=== PATIENT | male | born 1960 | race Caucasian/White ===

== ENCOUNTER → 2017-04-29 | Outpatient (CLI) | payer BC ==
[2014-11-16 09:32] VITALS: BP 125/70
[~2017-04-29] MED LIST: ALPR0.25 PO; ALPR0.5T PO; ALPR3TAB PO; BUPR150T8 PO; CRESTOR40 MG PO; CYAN10005 PO; DILT240C2 PO; ESOM40CA PO; METO25TA4 PO; MULT1TAB87 PO; RIVA20TA2 PO; TERA5CAP3 PO
--- NOTE | 2017-04-29 12:34 | CARD ---
APPROVED REPORT EXAM: Two-dimensional and M-mode echocardiogram with Doppler and color Doppler. Other Information Quality : FairHR: 64bpm Rhythm : NSR INDICATION Cardiomyopathy RISK FACTORS Obesity 2D DIMENSIONS RVDd2.9 (2.9-3.5cm)Left Atrium(2D)3.6 (1.6-4.0cm) IVSd1.0 (0.7-1.1cm)Aortic Root(2D)3.1 (2.0-3.7cm) LVDd5.0 (3.9-5.9cm)LVOT Diameter2.3 (1.8-2.4cm) PWd1.0 (0.7-1.1cm)LVDs3.3 (2.5-4.0cm) FS (%) 33.3 %SV72.3 ml LVEF(%)61.7 (>50%) M-Mode DIMENSIONS LVDd5.40 (4.0-5.6cm)Aortic Cusp Exc2.00 (1.5-2.0cm) FS (%) 25 %LVDs4.04 (2.0-3.8cm) LVEF(%)49 (>50%) Aortic Valve AoV Peak Etienne.124.7cm/sAoV VTI22.5cm AO Peak GR.6.2mmHgLVOT Peak Etienne.113.8cm/s LVOT VTI 19.40cmAO Mean GR.4mmHg TALISHA (VMAX)2.99ll8YFY (VTI)3.55cm2 Mitral Valve MV E Jzfuyksa12.9cm/sMV DECEL [id number] MV A Daadzplt04.8cm/sMV E Mean Gr.1mmHg MV CJV68ttL/A Ratio0.9 MV A Jjliyvzf61eoOFO (PHT)4.32cm2 TDI E/Lateral E'6.4E/Medial E'6.1 Pulmonary Valve PV Peak Pmxoiyqo847.8cm/sPV Peak Grad.6mmHg Pulmonary Vein S1 Gykyylbv29.4cm/sD2 Kteijmpv50.8cm/s PVa shkqzfxw82iwkj LEFT VENTRICLE The left ventricle is normal size. There is normal left ventricular wall thickness. Left ventricle sy stolic function is moderately impaired. The Ejection Fraction is 30-35%. Abnormal septal motion is no alba suggestive of conduction defect. There is moderate global hypokinesis of the left ventricle, pred ominantly in the mid to distal segments. Transmitral Doppler flow pattern is Grade I-abnormal relaxat ion pattern. No left ventricle thrombus noted on this study. RIGHT VENTRICLE The right ventricle is normal size. There is normal right ventricular wall thickness. The right ventr icular systolic function is normal. ATRIA The left atrium size is normal. The right atrium size is normal. The interatrial septum is intact wit h no evidence for an atrial septal defect or patent foramen ovale as noted on 2-D or Doppler imaging. AORTIC VALVE The aortic valve is mildly thickened. The aortic valve is trileaflet. Doppler and Color Flow revealed no significant aortic regurgitation. There is no significant aortic valvular stenosis. MITRAL VALVE The mitral valve leaflets are thickened. There is no evidence of mitral valve prolapse. There is no m itral valve stenosis. Doppler and Color Flow revealed no mitral valve regurgitation noted. TRICUSPID VALVE Doppler and Color Flow revealed no tricuspid valve regurgitation noted. There is no pulmonary hyperte nsion. PULMONIC VALVE Doppler and Color Flow revealed no pulmonic valvular regurgitation. There is no pulmonic valvular evelia nosis. GREAT VESSELS The aortic root is normal in size. The ascending aorta is mildly dilated at 3.8 cm The IVC is normal in size and collapses >50% with inspiration. PERICARDIAL EFFUSION There is no evidence of significant pericardial effusion. Critical Notification Critical Value: No <Conclusion> Left ventricle systolic function is moderately impaired. The Ejection Fraction is 30-35%. Abnormal septal motion is noted suggestive of conduction defect. There is moderate global hypokinesi s of the left ventricle, predominantly in the mid to distal segments. The ascending aorta is mildly dilated at 3.8 cm
== END | disposition home or self-care (01) ==
LOC: ECHO 07:42
PROVIDERS: ATTEND Internal Medicine Cardiovascular Disease
DX: I48.0 Paroxysmal atrial fibrillation (principal)
CPT/HCPCS: 93306

== ENCOUNTER 2017-05-10 06:39 | Outpatient (CLI) | payer BC ==
[~2017-05-10] VITALS: Ht 185.4 cm; Wt 142.9 kg
[2017-05-10] VITALS (9 sets, daily range): BP systolic 106–127; BP diastolic 67–78
[2017-05-10 07:02] LABS: HEMATOCRIT 44.3 % (39.0-53.0); RED BLOOD COUNT 4.54 x10^6/uL (4.30-5.70); WHITE BLOOD COUNT 5.9 x10^3/uL (4.0-11.0)
[2017-05-10 07:11] LABS: INR 1.1 (0.8-1.1); PROTHROMBIN TIME PATIENT 13.4 SEC (11.7-14.0)
[2017-05-10] MEDS ORDERED: TAMS0.4C2 PO (07:13)
[2017-05-10] MEDS ORDERED: DILT240C2 PO (07:13)
[2017-05-10] MEDS ORDERED: AMIO200T2 PO (07:13)
[2017-05-10 07:22] LABS: CALCIUM 9.8 mg/dL (8.5-10.1); CREATININE 1.1 mg/dL (0.7-1.3); GFR 68.8; POTASSIUM 4.3 mmol/L (3.5-5.1)
[2017-05-10] MEDS ORDERED: IOHEXOL 300 MG/ML 100ML VIAL. ONE (07:31)
[2017-05-10] MEDS ORDERED: LIDOCAINE 2% 20 ML VIAL. ONE (07:32)
[2017-05-10] MEDS ORDERED: NITROGLYCERIN 200 MCG/2 ML SYRINGE FOR CATH/VASC LAB. ONE (07:41)
[2017-05-10] MEDS ORDERED: VERAPAMIL 5 MG/2 ML VIAL. ONE (07:41)
[2017-05-10] MEDS ORDERED: HEPARIN for IV BOLUS 10,000 UNIT/10 ML VIAL. ONE (07:41)
[2017-05-10] MEDS ORDERED: MIDAZOLAM HCL/PF 2 MG/2 ML VIAL. ONE ×2 (07:42→08:11)
[2017-05-10] MEDS ORDERED: fentaNYL PF VIAL 100 MCG/2 ML VIAL ONE (07:42)
[2017-05-10] MEDS ORDERED: fentaNYL PF VIAL 100 MCG/2 ML VIAL IV ONE (08:00)
[2017-05-10] MEDS ORDERED: VERAPAMIL 5 MG/2 ML VIAL. IART ONE (08:00)
[2017-05-10] MEDS ORDERED: NITROGLYCERIN 200 MCG/2 ML SYRINGE FOR CATH/VASC LAB. IART ONE (08:00)
[2017-05-10] MEDS ORDERED: HEPARIN for IV BOLUS 10,000 UNIT/10 ML VIAL. IART ONE (08:00)
[2017-05-10] MEDS ORDERED: IOHEXOL 300 MG/ML 100ML VIAL. IART ONE (08:00)
[2017-05-10] MEDS ORDERED: MIDAZOLAM HCL/PF 2 MG/2 ML VIAL. IV ONE (08:00)
[2017-05-10] MEDS ORDERED: LIDOCAINE 2% 20 ML VIAL. IJ ONE (08:00)
--- NOTE | 2017-05-10 08:58 | CARD ---
APPROVED REPORT Procedure(s) performed: Left heart catheterization, selective coronary angiography and left ventricul ography via right transradial approach INDICATION The indication(s) include : Cardiomyopathy. PROCEDURE NARRATIVE After explaining the risks, benefits and alternative options, informed consent was obtained from lisbeth ent. Patient was brought to the cardiac Hospitalist Program Director and right wrist was prepped and draped in the usual fashion after confirming a positive modified Parth's test. Arterial access was obtained in the [facility] t radial artery and a [address] [place] sheath was inserted. [address] [place] Ralph catheter was used to perform brina ective angiography of the left and right coronary arteries. 6 [place] pigtail catheter was used to pe rform left ventriculography. Patient tolerated the procedure well. Hemostasis was achieved using TR band. There were no immediate complications. The following findings were noted. FINDINGS 1. Hemodynamics: Left ventricular end-diastolic pressure of 9 mmHg. No pullback gradient across the aortic valve. 2. Left ventriculography: Normal left ventricle systolic function with ejection fraction estimated at 50-55%. No significant mitral regurgitation seen. 3. Coronary angiography: a. The left main coronary artery arose from the left sinus of Valsalva, gave rise to the left anteri or descending and left circumflex arteries and did not show any significant stenosis. b. The left anterior descending artery did not show any significant stenosis. c. The left circumflex artery did not show any significant stenosis. d. The right coronary artery was a large and dominant vessel arising from the right sinus of Valsalv a that did not show any significant stenosis. Conclusion 1. No significant coronary artery disease 2. Normal left ventricle systolic function with ejection fraction estimated at 50-55% Recommendations Medical Therapy
[2017-05-10] MEDS ORDERED: IV 1/2 NORMAL SALINE 1,000 ML IV SCH (09:10)
--- NOTE | 2017-05-10 09:10 | PDOC ---
MODERATE SEDATION ASSESSMENT RISKS/ALTERNATIVES Risks/Alternatives Risks and alternatives of this type of sedation and procedure discussed with: RISK/ALTERNATIVES: Patient H & P ON CHART H & P H & P on chart and reviewed for co-morbid conditions and appropriate labs. H&P ON CHART: Yes STATUS PREG STATUS ASSESSED: N/A MEDS/ALLERGIES REVIEWED Meds/Allergies Reviewed Medications and Allergies including time and route of recently administered narcotics and sedatives. MEDS/ALLERGIES REVIEWED: Yes ASA RATING ASA RATING: II AIRWAY ASSESSMENT Airway Assessment Airway patency, oral function limitations, presence of caps, crowns, dentures, partials, and ability to extend neck assessed. AIRWAY ASSESSMENT: Yes MALLAMPATI SCORE MALLAMPATI SCORE: II PRE-SEDATION ASSESSMENT PRE-SEDATION ASSESSMENT: Yes TRACEE MORIN MD May 10, 2017 09:10
== END 2017-05-10 10:53 | disposition home or self-care (01) ==
LOC: CCL 06:39
PROVIDERS: ATTEND Internal Medicine Cardiovascular Disease
DX: I11.0 Hypertensive heart disease with heart failure (principal); I50.20 Unspecified systolic (congestive) heart failure; I48.91 Unspecified atrial fibrillation; E78.00 Pure hypercholesterolemia, unspecified; F17.200 Nicotine dependence, unspecified, uncomplicated; E66.9 Obesity, unspecified; F41.9 Anxiety disorder, unspecified; F32.9 Major depressive disorder, single episode, unspecified; Z90.49 Acquired absence of other specified parts of digestive tract; Z72.89 Other problems related to lifestyle
CPT/HCPCS: 36415; 80048; 85027; 85610; 93458; C1769; C1892; J2250; J3010; J3490; Q9967

== ENCOUNTER → 2017-12-10 | Outpatient (CLI) | payer BC ==
[2017-12-10] MEDS: IOHEXOL 240 MG/ML 50ML VIAL. PO (09:11)
[2017-12-10] MEDS: IOHEXOL 300 MG/ML 100ML VIAL. IV (09:46)
== END | disposition home or self-care (01) ==
LOC: KCIC CT 08:42
DX: R10.33 Periumbilical pain (principal); M48.061 Spinal stenosis, lumbar region without neurogenic claudication
CPT/HCPCS: 74177; Q9966; Q9967

== ENCOUNTER 2018-04-04 04:49 | Emergency (ER) | payer BC ==
[2018-04-04 05:28] LABS: ADD MAN DIFF? NO
[2018-04-04 05:32] LABS: BASO % 1 % (0-3); EOS # 0.1 x10^3/uL (0.0-0.7); EOS % 3 % (0-3); HEMATOCRIT 40.6 % (39.0-53.0); LYMPH # 1.2 x10^3/uL (1.0-4.8); LYMPH % 25 % (24-48); MEAN CORPUSCULAR HEMOGLOBIN 33 pg (25-35); MEAN CORPUSCULAR HGB CONC 35 g/dL (31-37); MEAN CORPUSCULAR VOLUME 95 fL (79-100); MONO # 0.7 x10^3/uL (0.0-1.1); MONO % 14 % (0-9); NEUT # 2.6 x10^3uL (1.8-7.7); NEUT % 57 % (31-73); PLATELET COUNT 209 x10^3/uL (140-400); RED BLOOD COUNT 4.29 x10^6/uL (4.30-5.70); WHITE BLOOD COUNT 4.6 x10^3/uL (4.0-11.0)
[2018-04-04] MEDS: fentaNYL PF VIAL 100 MCG/2 ML VIAL IV (05:38)
[2018-04-04 05:40] LABS: PROTHROMBIN TIME PATIENT 21.6 SEC (11.7-14.0)
[2018-04-04 05:41] LABS: ANION GAP 10 (6-14); BLOOD UREA NITROGEN 18 mg/dL (8-26); BUN/CREATININE RATIO 18 (6-20); CALCIUM 9.5 mg/dL (8.5-10.1); CARBON DIOXIDE 25 mmol/L (21-32); CHLORIDE 107 mmol/L (98-107); GFR 76.5; GLUCOSE 117 mg/dL (70-99); POTASSIUM 3.9 mmol/L (3.5-5.1); SODIUM 142 mmol/L (136-145)
[2018-04-04 05:52] LABS: NT-PRO BNP 343 pg/mL (0-124); TROPONINI < 0.017 ng/mL (0.000-0.055)
[2018-04-04 05:52] LABS: ALBUMIN 3.5 g/dL (3.4-5.0); ALBUMIN/GLOBULIN RATIO 1.1 (1.0-1.7); ALK PHOS 79 U/L (46-116); ALT (SGPT) 164 U/L (16-63); AST (SGOT) 76 U/L (15-37); TOTAL BILIRUBIN 0.5 mg/dL (0.2-1.0); TOTAL PROTEIN 6.8 g/dL (6.4-8.2)
[2018-04-04 06:27] LABS: D-DIMER < 0.27 ug/mlFEU (0.00-0.50)
== END 2018-04-04 07:39 | disposition home or self-care (01) ==
LOC: ER 04:49
DX: R07.89 Other chest pain (principal); M79.605 Pain in left leg; K21.9 Gastro-esophageal reflux disease without esophagitis; I48.91 Unspecified atrial fibrillation; I10 Essential (primary) hypertension; Z87.891 Personal history of nicotine dependence; Z90.49 Acquired absence of other specified parts of digestive tract; Z79.899 Other long term (current) drug therapy
CPT/HCPCS: 36415; 71045; 80053; 83880; 84484; 85025; 85379; 85610; 93005; 93971; 96374; 99285; J3010

== ENCOUNTER → 2018-06-09 | Outpatient (CLI) | payer BC | END | disposition home or self-care (01) | LOC: RAD 15:52 | DX: R06.02 Shortness of breath (principal); I11.0 Hypertensive heart disease with heart failure; I50.9 Heart failure, unspecified; E78.00 Pure hypercholesterolemia, unspecified; E78.5 Hyperlipidemia, unspecified; K21.9 Gastro-esophageal reflux disease without esophagitis | CPT/HCPCS: 71046 ==

== ENCOUNTER → 2018-06-27 | Outpatient (CLI) | payer BC ==
[2018-06-27 16:09] LABS: ANION GAP 11 (6-14); BLOOD UREA NITROGEN 26 mg/dL (8-26); CALCIUM 9.3 mg/dL (8.5-10.1); CARBON DIOXIDE 25 mmol/L (21-32); CHLORIDE 103 mmol/L (98-107); CREATININE 1.4 mg/dL (0.7-1.3); GFR 51.9; GLUCOSE 87 mg/dL (70-99); SODIUM 139 mmol/L (136-145)
== END | disposition home or self-care (01) ==
LOC: LAB 15:28
DX: I11.0 Hypertensive heart disease with heart failure (principal); I50.22 Chronic systolic (congestive) heart failure; E78.5 Hyperlipidemia, unspecified; E78.00 Pure hypercholesterolemia, unspecified; F32.9 Major depressive disorder, single episode, unspecified; K21.9 Gastro-esophageal reflux disease without esophagitis; Z87.891 Personal history of nicotine dependence; Z90.49 Acquired absence of other specified parts of digestive tract
CPT/HCPCS: 36415; 80048

== ENCOUNTER → 2018-07-07 | Outpatient (CLI) | payer BC ==
[2018-04-04 07:39] VITALS: BP 128/76
[~2018-07-07] MED LIST changes: +AMIO200T4 PO; +TAMS0.4C2 PO
--- NOTE | 2018-07-07 16:54 | CARD ---
MR#: [id number] Date of Study: 07/07/2018 Ordering Physician: TRACEE MORIN, Referring Physician: TRACEE MORIN Tech: Leslye Coker RDCS APPROVED REPORT EXAM: Two-dimensional and M-mode echocardiogram with Doppler and color Doppler. Other Information Quality : Good INDICATION Congestive Heart Failure 2D DIMENSIONS RVDd3.0 (2.9-3.5cm)Left Atrium(2D)3.8 (1.6-4.0cm) IVSd1.1 (0.7-1.1cm)Aortic Root(2D)3.5 (2.0-3.7cm) LVDd6.0 (3.9-5.9cm)LVOT Diameter2.4 (1.8-2.4cm) PWd1.4 (0.7-1.1cm)LVDs3.8 (2.5-4.0cm) FS (%) 27.0 %SV119.0 ml LVEF(%)55.0 (>50%) Aortic Valve AoV Peak Etienne.143.2cm/sAoV VTI26.2cm AO Peak GR.8.2mmHgLVOT Peak Etienne.84.1cm/s AO Mean GR.5mmHgAVA (VMAX)2.69cm2 TALISHA (VTI)3.10cm2 Mitral Valve MV E Kmtepheb92.8cm/sMV DECEL KNOW761yg MV A Uiosuxjg29.5cm/sE/A Ratio1.2 Pulmonary Vein S1 Heyvhlnf48.1cm/sD2 Zlrdochd56.9cm/s LEFT VENTRICLE The Left Ventricle is mildly dilated. There is mild concentric left ventricular hypertrophy. Left todd tricle systolic function is normal. The Ejection Fraction is 50-55%. There is normal LV segmental wal l motion. RIGHT VENTRICLE The right ventricle is normal size. The right ventricular systolic function is normal. ATRIA The left atrium is mildly dilated. The right atrium size is normal. The interatrial septum is intact with no evidence for an atrial septal defect or patent foramen ovale as noted on 2-D or Doppler imagi ng. AORTIC VALVE The aortic valve is calcified but opens well. Doppler and Color Flow revealed no significant aortic r egurgitation. There is no significant aortic valvular stenosis. MITRAL VALVE The mitral valve is normal in structure and function. There is no evidence of mitral valve prolapse. There is no mitral valve stenosis. Doppler and Color-flow revealed trace mitral regurgitation. TRICUSPID VALVE The tricuspid valve is normal in structure and function. Doppler and Color Flow revealed no tricuspid valve regurgitation noted. There is no tricuspid valve stenosis. PULMONIC VALVE The pulmonic valve is not well visualized. Doppler and Color Flow revealed no pulmonic valvular regur gitation. There is no pulmonic valvular stenosis. GREAT VESSELS The aortic root is normal in size. The ascending aorta is normal in size. The IVC is normal in size a nd collapses >50% with inspiration. PERICARDIAL EFFUSION There is no evidence of significant pericardial effusion. Critical Notification Critical Value: No <Conclusion> Left ventricle systolic function is normal. The Ejection Fraction is 50-55%. There is normal LV segmental wall motion. Trace mitral regurgitation. There is no evidence of significant pericardial effusion. Signed by : Tracee Morin, Electronically Approved : 07/07/2018 16:53:23
== END | disposition home or self-care (01) ==
LOC: ECHO 13:32
PROVIDERS: ATTEND Internal Medicine Cardiovascular Disease
DX: I11.0 Hypertensive heart disease with heart failure (principal); I50.22 Chronic systolic (congestive) heart failure; K21.9 Gastro-esophageal reflux disease without esophagitis; E78.5 Hyperlipidemia, unspecified; E78.00 Pure hypercholesterolemia, unspecified; Z90.49 Acquired absence of other specified parts of digestive tract; Z87.891 Personal history of nicotine dependence
CPT/HCPCS: 93306

== ENCOUNTER 2019-03-07 14:36 | Inpatient (IN) | payer BC ==
[~2019-03-07] VITALS: Ht 185.4 cm; Wt 128.9 kg
[2019-03-07] MEDS ORDERED: IPRATRPIUM/ALBUTEROL 0.5/2.5MG 3 ML NEBU. NEB ONE (15:00)
[2019-03-07] MEDS ORDERED: methylPREDNISolone SOD SUCC PF 125 MG/2 ML VIAL. IV ONE (15:00)
--- NOTE | 2019-03-07 15:12 | EKG ---
[facility] [address] [place] [address] Test Date: 2019-03-07 Test Time: 14:47:46 Pat Name: DANIEL CROSS Department: Room: Gender: M Loftsman/Woman: : 1960 Requested By: LÓPEZ GARNER Order Number: [id number] Reading MD: Wei Nava MD Measurements Intervals [place] Rate: 99 P: MD: QRS: 113 QRSD: 100 T: 45 QT: 382 QTc: 496 Interpretive Statements ATRIAL FIBRILLATION WITH CONTROLLED VENTRICULAR RESPONSE PROLONGED QT NON-SPECIFIC ST/T CHANGES CONSIDER LATERAL ISCHEMIA Electronically Signed On 03-15-2019 9:05:43 CDT by Wei Nava MD
[2019-03-07 15:32] LABS: BASO # 0.1 x10^3/uL (0.0-0.2); BASO % 1 % (0-3); EOS % 0 % (0-3); HEMATOCRIT 46.9 % (39.0-53.0); HEMOGLOBIN 15.8 g/dL (13.0-17.5); LYMPH # 2.1 x10^3/uL (1.0-4.8); LYMPH % 22 % (24-48); MEAN CORPUSCULAR HEMOGLOBIN 33 pg (25-35); MEAN CORPUSCULAR HGB CONC 34 g/dL (31-37); MEAN CORPUSCULAR VOLUME 97 fL (79-100); MONO # 0.8 x10^3/uL (0.0-1.1); MONO % 9 % (0-9); NEUT # 6.5 x10^3uL (1.8-7.7); NEUT % 68 % (31-73); PLATELET COUNT 274 x10^3/uL (140-400); RED BLOOD COUNT 4.83 x10^6/uL (4.30-5.70); RED CELL DISTRIBUTION WIDTH 12.6 % (11.5-14.5); WHITE BLOOD COUNT 9.5 x10^3/uL (4.0-11.0)
--- NOTE | 2019-03-07 15:38 | RAD ---
EXAM: CHEST 1 VIEW History: Shortness of breath COMPARISON: 06/09/2018 TECHNIQUE: Single portable radiograph of the chest FINDINGS: The cardiac silhouette is unremarkable. Mild hyperinflated lungs. Atelectasis or scarring changes identified in the left lung similar to prior exam. IMPRESSION: No radiographic evidence of an acute cardiopulmonary process. Electronically signed by: Frederick Zhou MD (03/07/2019 3:35 PM) [facility]
--- NOTE | 2019-03-07 15:51 | PHYS DOC ---
Past Medical History Past Medical History: A-Fib, Anxiety, COPD, GERD, Hypertension Additional Past Medical Histor: ENLARGED PROSTATE, ANEURYSM Past Surgical History: Appendectomy, Cholecystectomy, Other Additional Past Surgical Histo: hernia surgery, heart cath-clean Alcohol Use: None Drug Use: None Adult General Chief Complaint Chief Complaint: SHORTNESS OF BREATH HPI HPI Patient is a 59 year old male who presents with complaining of shortness of breath. Patient complaining of shortness of breath intermittently for the last 5 days that getting more constant today. Patient complaining of productive cough with yellow sputum and exertional dizziness and generalized weakness. Patient complaining of episodes of chest pain is substernal and left side of his chest as a sharp pain and rated his pain 9/10. Patient was seen at urgent care 5 days ago and had Medrol Dosepak and antibiotics without improvement of his condition. Patient has history of COPD without home oxygen and atrial fibrillation and currently on Xarelto without history of PE and DVT. Review of Systems Review of Systems Constitutional: Denies fever or chills [] Eyes: Denies change in visual acuity, redness, or eye pain [] HENT: Denies nasal congestion or sore throat [] Respiratory: Reports cough and shortness of breath[] Cardiovascular: No additional information not addressed in HPI [] GI: Denies abdominal pain, nausea, vomiting, bloody stools or diarrhea [] : Denies dysuria or hematuria [] Musculoskeletal: Denies back pain or joint pain [] Integument: Denies rash or skin lesions [] Neurologic: Denies headache, focal weakness or sensory changes [] Endocrine: Denies polyuria or polydipsia [] All other systems were reviewed and found to be within normal limits, except as documented in this note. Current Medications Current Medications Current Medications Medications (Trade) Dose Ordered Sig/Padmini Start Time Stop Time Status Last Admin Dose Admin Albuterol/ Ipratropium (Duoneb) 3 ml 1X ONCE 03/07/19 15:00 03/07/19 15:05 DC 03/07/19 15:13 3 ML Ceftriaxone Sodium (Rocephin) 1 gm 1X ONCE 03/07/19 16:45 03/07/19 16:46 DC Fentanyl Citrate (Fentanyl 2ml Vial) 50 mcg 1X ONCE 03/07/19 16:15 03/07/19 16:16 DC 03/07/19 16:08 50 MCG Methylprednisolone Sodium Succinate (SOLU-Medrol 125MG VIAL) 125 mg 1X ONCE 03/07/19 15:00 03/07/19 15:05 DC 03/07/19 15:27 125 MG Allergies Allergies Allergies Coded Allergies Type Severity Reaction Last Updated Verified No Known Drug Allergies 11/16/14 No Physical Exam Physical Exam Constitutional: Well developed, well nourished, moderate distress, non-toxic appearance. [] HENT: Normocephalic, atraumatic, bilateral external ears normal, oropharynx moist, no oral exudates, nose normal. [] Eyes: PERRLA, EOMI, conjunctiva normal, no discharge. [] Neck: Normal range of motion, no tenderness, supple, no stridor. [] Cardiovascular: Irregularly irregular rhythm, no murmur [] Lungs & Thorax: Decrease of air movement and bilateral rhonchi Abdomen: Bowel sounds normal, soft, no tenderness, no masses, no pulsatile masses. [] Skin: Warm, dry, no erythema, no rash. [] Back: No tenderness, no CVA tenderness. [] Extremities: No tenderness, no cyanosis, no clubbing, ROM intact, lateral lower extremity 1+ edema[] Neurologic: Alert and oriented X 3, normal motor function, normal sensory function, no focal deficits noted. [] Psychologic: Affect anxious judgement normal, mood normal. [] Current Patient Data Vital Signs Vital Signs Date Time Temp Pulse Resp B/P (MAP) Pulse Ox O2 Delivery O2 Flow Rate FiO2 03/07/19 16:08 15 03/07/19 15:18 98 Room Air 03/07/19 14:42 97.3 97 107/86 (93) 97.3 Lab Values Laboratory Tests Test 03/07/19 15:20 White Blood Count 9.5 x10^3/uL (4.0-11.0) Red Blood Count 4.83 x10^6/uL (4.30-5.70) Hemoglobin 15.8 g/dL (13.0-17.5) Hematocrit 46.9 % (39.0-53.0) Mean Corpuscular Volume 97 fL (79-100) Mean Corpuscular Hemoglobin 33 pg (25-35) Mean Corpuscular Hemoglobin Concent 34 g/dL (31-37) Red Cell Distribution Width 12.6 % (11.5-14.5) Platelet Count 274 x10^3/uL (140-400) Neutrophils (%) (Auto) 68 % (31-73) Lymphocytes (%) (Auto) 22 % (24-48) L Monocytes (%) (Auto) 9 % (0-9) Eosinophils (%) (Auto) 0 % (0-3) Basophils (%) (Auto) 1 % (0-3) Neutrophils # (Auto) 6.5 x10^3uL (1.8-7.7) Lymphocytes # (Auto) 2.1 x10^3/uL (1.0-4.8) Monocytes # (Auto) 0.8 x10^3/uL (0.0-1.1) Eosinophils # (Auto) 0.0 x10^3/uL (0.0-0.7) Basophils # (Auto) 0.1 x10^3/uL (0.0-0.2) D-Dimer (Chata) < 0.27 ug/mlFEU Sodium Level 141 mmol/L (136-145) Potassium Level 4.2 mmol/L (3.5-5.1) Chloride Level 102 mmol/L (98-107) Carbon Dioxide Level 23 mmol/L (21-32) Anion Gap 16 (6-14) H Blood Urea Nitrogen 27 mg/dL (8-26) H Creatinine 1.4 mg/dL (0.7-1.3) H Estimated GFR (Cockcroft-Gault) 51.7 BUN/Creatinine Ratio 19 (6-20) Glucose Level 133 mg/dL (70-99) H Lactic Acid Level 2.1 mmol/L (0.4-2.0) H Calcium Level 9.4 mg/dL (8.5-10.1) Total Bilirubin 0.8 mg/dL (0.2-1.0) Aspartate Amino Transferase (AST) 66 U/L (15-37) H Alanine Aminotransferase (ALT) 140 U/L (16-63) H Alkaline Phosphatase 100 U/L (46-116) Creatine Kinase 95 U/L (39-308) Troponin I Quantitative < 0.017 ng/mL (0.000-0.055) KR-Bht-E-Type Natriuretic Peptide 1106 pg/mL (0-124) H Total Protein 7.9 g/dL (6.4-8.2) Albumin 4.0 g/dL (3.4-5.0) Albumin/Globulin Ratio 1.0 (1.0-1.7) Laboratory Tests 03/07/19 15:20 Laboratory Tests 03/07/19 15:20 EKG EKG EKG interpreted by me. EKG at 1447 showed atrial flutter ablation at rate of 99 , abnormal right axis deviation, prolonged QT, no acute ST and T-wave abnormalities. Radiology/Procedures Radiology/Procedures [][facility] [address] [place] [address] IMAGING REPORT Signed PATIENT: DANIEL CROSS ACCOUNT: [id number] : 1960 LOCATION: ER AGE: 59 SEX: M EXAM STATUS: REG ER ORD. PHYSICIAN: LÓPEZ GARNER MD REASON: SOB PROCEDURE: PORTABLE CHEST 1V EXAM: CHEST 1 VIEW History: Shortness of breath COMPARISON: 06/09/2018 TECHNIQUE: Single portable radiograph of the chest FINDINGS: The cardiac silhouette is unremarkable. Mild hyperinflated lungs. Atelectasis or scarring changes identified in the left lung similar to prior exam. IMPRESSION: No radiographic evidence of an acute cardiopulmonary process. Electronically signed by: Frederick Zhou MD (03/07/2019 3:35 PM) [facility] DICTATED and SIGNED BY: FREDERICK ZHOU MD DATE: 03/07/19 1535 Course & Med Decision Making Course & Med Decision Making Pertinent Labs and Imaging studies reviewed. (See chart for details) Evaluation of patient in ER showed 59-year-old male patient with history of COPD and atrial fibrillation complaining of shortness of breath and productive cough for several days that did not get better with outpatient treatment with antibiotic and prednisone. Patient treated with DuoNeb, Solu-Medrol, fentanyl and felt better. Chest x-ray did not show infiltration. Plan to admit patient with diagnosis of COPD exacerbation. Patient requiring admission for further evaluation and treatment. Discussed with Dr. Cash who is in agreement with admission. Discussed findings and plan with patient and family, who acknowledge understanding and agreement. Dragon Disclaimer Dragon Disclaimer This electronic medical record was generated, in whole or in part, using a voice recognition dictation system. Departure Departure Impression: Primary Impression: COPD exacerbation Additional Impressions: Afib Non-cardiac chest pain Anxiety Disposition: ADMITTED INPATIENT (at 1704) Admitting Physician: Laurie Cash (accepted admission at 1704) Condition: IMPROVED Referrals: FRIEDA MCLAIN MD (PCP) Problem Qualifiers Additional Impressions: Afib Atrial fibrillation type: chronic Qualified Codes: I48.2 - Chronic atrial fibrillation LÓPEZ GARNER MD Mar 07, 2019 15:51
[2019-03-07 16:00] LABS: CALCIUM 9.4 mg/dL (8.5-10.1); CREATININE 1.4 mg/dL (0.7-1.3); GFR 51.7; POTASSIUM 4.2 mmol/L (3.5-5.1)
[2019-03-07 16:07] LABS: TOTAL BILIRUBIN 0.8 mg/dL (0.2-1.0); TOTAL PROTEIN 7.9 g/dL (6.4-8.2)
[2019-03-07] MEDS ORDERED: fentaNYL PF VIAL 100 MCG/2 ML VIAL IV ONE (16:15)
[2019-03-07] MEDS ORDERED: cefTRIAXone IV Push 1 GM VIAL. IVP ONE (16:45)
[2019-03-07] MEDS ORDERED: ONDANSETRON PF 4 MG/2 ML VIAL. IV PRN (17:15)
[2019-03-07] MEDS ORDERED: TEMAZEPAM 7.5 MG CAPSULE PO PRN (17:15)
[2019-03-07] MEDS ORDERED: ACETAMINOPHEN/CODEINE 300/30MG TABLET. PO PRN (17:15)
[2019-03-07] MEDS ORDERED: ACETAMINOPHEN 500 MG TABLET PO PRN (17:15)
--- NOTE | 2019-03-07 19:32 | PDOC1 ---
History and Physical Date of Admission Date of Admission DATE: 03/07/19 TIME: 19:29 Identification/Chief Complaint Chief Complaint SOA, cough, not better after urgent care antibiotics Source Source: Caregiver, Chart review, Patient History of Present Illness History of Present Illness 59-year-old obese white male BMI 37, SOA, few days, denies recent sick contacts or travel. Went to urgent care , given steroids and unrecalled antibiotic, has 3 more days to take but no better. He claims he got worse. Denies fever. Only on rescue inhalers at home with known COPD. Smoked for 40 years but quit 4 years ago. Chest x-ray and labs unremarkable. Decreased breath sounds but no wheezing appreciable. Hypoxic 80s at urgent care. Admitted for COPD exacerbation/acute bronchitis Chest x-ray no consolidation Past Medical History Cardiovascular: HTN, Hyperlipidemia Pulmonary: COPD GI: GERD, Gastritis, Other Heme/Onc: No pertinent hx Hepatobiliary: Cholelithiasis, Other Psych: Anxiety, Addictions, Depression, Panic Musculoskeletal: low back pain, Osteoarthritis, Stiffness, Other Rheumatologic: No pertinent hx Infectious disease: No pertinent hx, Herpes simplex1 Renal/: No pertinent hx, Benign prostatic enlarg. Endocrine: No pertinent hx, Other Past Surgical History Past Surgical History: Cholecystectomy, Hernia Repair Family History Family History: Cancer, Obesity, Other Social History Smoke: Quit ALCOHOL: none Drugs: None Current Problem List Problem List Problems Medical Problems: (1) Afib Status: Acute (2) Anxiety Status: Acute (3) COPD exacerbation Status: Acute (4) Non-cardiac chest pain Status: Acute Current Medications Current Medications Current Medications Albuterol/ Ipratropium (Duoneb) 3 ml 1X ONCE NEB Last administered on at 15:13; Start 03/07/19 at 15:00; Stop 03/07/19 at 15:05; Status DC Methylprednisolone Sodium Succinate (SOLU-Medrol 125MG VIAL) 125 mg 1X ONCE IV Last administered on 03/07/19at 15:27; Start 03/07/19 at 15:00; Stop 03/07/19 at 15:05; Status DC Fentanyl Citrate (Fentanyl 2ml Vial) 50 mcg 1X ONCE IV Last administered on 03/07/19at 16:08; Start 03/07/19 at 16:15; Stop 03/07/19 at 16:16; Status DC Ceftriaxone Sodium (Rocephin) 1 gm 1X ONCE IVP Last administered on 03/07/19at 17:27; Start 03/07/19 at 16:45; Stop 03/07/19 at 16:46; Status DC Albuterol/ Ipratropium (Duoneb) 3 ml RTQID NEB ; Start 03/07/19 at 20:00 Guaifenesin (Robitussin Dm) 10 ml PRN Q6HRS PRN PO COUGH; Start 03/07/19 at 17: 15 Temazepam (Restoril) 7.5 mg PRN QHS PRN PO INSOMNIA; Start 03/07/19 at 17:15 Acetaminophen (Tylenol) 500 mg PRN Q6HRS PRN PO MILD PAIN / TEMP; Start at 17:15 Acetaminophen/ Codeine Phosphate (Tylenol #3) 1 tab PRN Q6HRS PRN PO MODERATE PAIN; Start 03/07/19 at 17:15 Ondansetron HCl (Zofran) 4 mg PRN Q6HRS PRN IV NAUSEA/VOMITING; Start 03/07/19 at 17:15 Oxycodone/ Acetaminophen (Percocet 5/325) 1 tab PRN Q4HRS PRN PO SEVERE PAIN; Start 03/07/19 at 17:15 Active Scripts Active Reported Tamsulosin Hcl 0.4 Mg Cap.er.24h 1 Cap PO DAILY Cardizem Cd (Diltiazem Hcl) 240 Mg Cap.er.24h 1 Cap PO DAILY Amiodarone Hcl 200 Mg Tablet 1 Tab PO DAILY Vitamin And Minerals (Multivitamins,Ther W-Minerals) 1 Each Tablet 1 Each PO DAILY Vitamin B-12 (Cyanocobalamin (Vitamin B-12)) 1,000 Mcg Tablet 2,500 Mcg PO DAILY Metoprolol Tartrate 25 Mg Tablet 25 Mg PO BID Xarelto (Rivaroxaban) 20 Mg Tablet 20 Mg PO DAILY Xanax (Alprazolam) 0.25 Mg Tablet 0.25 Mg PO BID 2 tabs in the am, 1 tab at night Crestor (Rosuvastatin Calcium) 40 Mg Tablet 40 Mg PO DAILY Nexium Capsule (Esomeprazole Magnesium) 40 Mg Capsule.dr 40 Mg PO Wellbutrin Sr (Bupropion Hcl) 150 Mg Tablet.er 150 Mg PO BID 2 tabs in the am, 1 tab at hs Allergies Allergies: Coded Allergies: No Known Drug Allergies (Unverified , 11/16/14) ROS Review of System as per history of present illness, the rest of ROS 14 point negative Physical Exam General: Alert, Oriented X3, Cooperative, No acute distress HEENT: Atraumatic, PERRLA Lungs: Normal air movement, Other (nO wheezing, decreased breath sounds secondary to increased AP diameter) Heart: S1S2, RRR, no thrills, no rubs, no gallops, no murmurs Cardiovascular: S1, S2 Abdomen: Normal bowel sounds, Soft, No tenderness, No hepatosplenomegaly, No masses Male Genitals Exam: normal genitalia, normal prostate Rectal Exam: not examined PELVIC: Nml ext genitalia Extremities: No clubbing, No cyanosis, No edema, Normal pulses, No tenderness/ swelling Skin: No rashes, No breakdown, No significant lesion Neuro: Normal gait, Normal speech, Strength at 5/5 X4 ext, Normal tone, Sensation intact, Cranial nerves 3-12 NL, Reflexes 2+ Psych/Mental Status: Mental status NL, Mood NL Vitals Vitals Vital Signs Date Time Temp Pulse Resp B/P (MAP) Pulse Ox O2 Delivery O2 Flow Rate FiO2 03/07/19 18:16 68 25 127/74 (91) 96 Room Air 03/07/19 14:42 97.3 97.3 Labs Labs Laboratory Tests Test 03/07/19 15:20 White Blood Count 9.5 x10^3/uL (4.0-11.0) Red Blood Count 4.83 x10^6/uL (4.30-5.70) Hemoglobin 15.8 g/dL (13.0-17.5) Hematocrit 46.9 % (39.0-53.0) Mean Corpuscular Volume 97 fL (79-100) Mean Corpuscular Hemoglobin 33 pg (25-35) Mean Corpuscular Hemoglobin Concent 34 g/dL (31-37) Red Cell Distribution Width 12.6 % (11.5-14.5) Platelet Count 274 x10^3/uL (140-400) Neutrophils (%) (Auto) 68 % (31-73) Lymphocytes (%) (Auto) 22 % (24-48) Monocytes (%) (Auto) 9 % (0-9) Eosinophils (%) (Auto) 0 % (0-3) Basophils (%) (Auto) 1 % (0-3) Neutrophils # (Auto) 6.5 x10^3uL (1.8-7.7) Lymphocytes # (Auto) 2.1 x10^3/uL (1.0-4.8) Monocytes # (Auto) 0.8 x10^3/uL (0.0-1.1) Eosinophils # (Auto) 0.0 x10^3/uL (0.0-0.7) Basophils # (Auto) 0.1 x10^3/uL (0.0-0.2) D-Dimer (Chata) < 0.27 ug/mlFEU Sodium Level 141 mmol/L (136-145) Potassium Level 4.2 mmol/L (3.5-5.1) Chloride Level 102 mmol/L (98-107) Carbon Dioxide Level 23 mmol/L (21-32) Anion Gap 16 (6-14) Blood Urea Nitrogen 27 mg/dL (8-26) Creatinine 1.4 mg/dL (0.7-1.3) Estimated GFR (Cockcroft-Gault) 51.7 BUN/Creatinine Ratio 19 (6-20) Glucose Level 133 mg/dL (70-99) Lactic Acid Level 2.1 mmol/L (0.4-2.0) Calcium Level 9.4 mg/dL (8.5-10.1) Total Bilirubin 0.8 mg/dL (0.2-1.0) Aspartate Amino Transf (AST/SGOT) 66 U/L (15-37) Alanine Aminotransferase (ALT/SGPT) 140 U/L (16-63) Alkaline Phosphatase 100 U/L (46-116) Creatine Kinase 95 U/L (39-308) Troponin I Quantitative < 0.017 ng/mL (0.000-0.055) LA-Iup-Y-Type Natriuretic Peptide 1106 pg/mL (0-124) Total Protein 7.9 g/dL (6.4-8.2) Albumin 4.0 g/dL (3.4-5.0) Albumin/Globulin Ratio 1.0 (1.0-1.7) Laboratory Tests Test 03/07/19 15:20 White Blood Count 9.5 x10^3/uL (4.0-11.0) Red Blood Count 4.83 x10^6/uL (4.30-5.70) Hemoglobin 15.8 g/dL (13.0-17.5) Hematocrit 46.9 % (39.0-53.0) Mean Corpuscular Volume 97 fL (79-100) Mean Corpuscular Hemoglobin 33 pg (25-35) Mean Corpuscular Hemoglobin Concent 34 g/dL (31-37) Red Cell Distribution Width 12.6 % (11.5-14.5) Platelet Count 274 x10^3/uL (140-400) Neutrophils (%) (Auto) 68 % (31-73) Lymphocytes (%) (Auto) 22 % (24-48) Monocytes (%) (Auto) 9 % (0-9) Eosinophils (%) (Auto) 0 % (0-3) Basophils (%) (Auto) 1 % (0-3) Neutrophils # (Auto) 6.5 x10^3uL (1.8-7.7) Lymphocytes # (Auto) 2.1 x10^3/uL (1.0-4.8) Monocytes # (Auto) 0.8 x10^3/uL (0.0-1.1) Eosinophils # (Auto) 0.0 x10^3/uL (0.0-0.7) Basophils # (Auto) 0.1 x10^3/uL (0.0-0.2) D-Dimer (Chata) < 0.27 ug/mlFEU Sodium Level 141 mmol/L (136-145) Potassium Level 4.2 mmol/L (3.5-5.1) Chloride Level 102 mmol/L (98-107) Carbon Dioxide Level 23 mmol/L (21-32) Anion Gap 16 (6-14) Blood Urea Nitrogen 27 mg/dL (8-26) Creatinine 1.4 mg/dL (0.7-1.3) Estimated GFR (Cockcroft-Gault) 51.7 BUN/Creatinine Ratio 19 (6-20) Glucose Level 133 mg/dL (70-99) Lactic Acid Level 2.1 mmol/L (0.4-2.0) Calcium Level 9.4 mg/dL (8.5-10.1) Total Bilirubin 0.8 mg/dL (0.2-1.0) Aspartate Amino Transf (AST/SGOT) 66 U/L (15-37) Alanine Aminotransferase (ALT/SGPT) 140 U/L (16-63) Alkaline Phosphatase 100 U/L (46-116) Creatine Kinase 95 U/L (39-308) Troponin I Quantitative < 0.017 ng/mL (0.000-0.055) OO-Rhq-Z-Type Natriuretic Peptide 1106 pg/mL (0-124) Total Protein 7.9 g/dL (6.4-8.2) Albumin 4.0 g/dL (3.4-5.0) Albumin/Globulin Ratio 1.0 (1.0-1.7) VTE Prophylaxis Ordered VTE Prophylaxis Devices: Yes VTE Pharmacological Prophylaxi: Yes Assessment/Plan Assessment/Plan COPD exacerbation Acute bronchitis-no consolidation or chest x-ray [id number] 4 years ago, smoked for 40 years Hypertension, chronic low back go, anxiety NOS-chronic stable Hypoxic RF with normal d dimer Plan: DuoNeb's, cough medicine, pulmo consult, I have reconciled home meds No PT needs Seen at ER [facility] [facility] JOHANNA ALEXANDER MD Mar 07, 2019 19:32
[2019-03-07 19:40] VITALS: BP 121/77
[2019-03-07] MEDS ORDERED: FURO20TA3 PO (20:08)
[2019-03-07] MEDS ORDERED: ALBU2.5V8 IN (20:08)
[2019-03-07] MEDS ORDERED: POTA10TA6 PO (20:08)
[2019-03-07] MEDS ORDERED: DOXY100T PO (20:08)
[2019-03-07] MEDS: IPRATRPIUM/ALBUTEROL 0.5/2.5MG 3 ML NEBU. NEB SCH (20:27)
[2019-03-07] MEDS: guaiFENesin DM 200MG/20MG 10 ML SYRUP PO PRN (21:01)
[2019-03-07] MEDS: oxyCODONE/APAP 5/325 1 TAB TABLET PO PRN (21:02)
[2019-03-07 21:13] LABS: BILIRUBIN,URINE SMALL (NEG); CLARITY,URINE CLEAR; COLOR,URINE AMBER; NITRITE,URINE NEGATIVE (NEG); PROTEIN,URINE NEGATIVE (NEG-TRACE)
[2019-03-07 21:18] LABS: BACTERIA,URINE 0 /HPF (0-FEW); SQUAMOUS EPITHELIAL CELL,UR FEW /LPF; WBC,URINE 0 /HPF (0-4)
[2019-03-07 21:19] LABS: RBC,URINE OCC /HPF (0-2)
[2019-03-07] MEDS ORDERED: ALBUTEROL SULFATE 2.5 MG/3 ML NEBU. INH PRN (22:30)
[2019-03-07] MEDS: ALPRAZolam 0.25 MG TABLET PO SCH (23:14)
[2019-03-07] MEDS: METOPROLOL TART IMMED RELEASE 25 MG TABLET. PO SCH (23:14)
[2019-03-07] MEDS: buPROPion SR 150 MG TABLET.SA PO SCH (23:14)
[2019-03-07 23:26] VITALS: BP 113/73
[2019-03-08 03:17] VITALS: BP 120/72
[2019-03-08] MEDS: guaiFENesin DM 200MG/20MG 10 ML SYRUP PO PRN ×3 (04:47→17:23)
[2019-03-08] MEDS: oxyCODONE/APAP 5/325 1 TAB TABLET PO PRN ×2 (04:47→14:54)
[2019-03-08] MEDS: IPRATRPIUM/ALBUTEROL 0.5/2.5MG 3 ML NEBU. NEB SCH ×4 (06:25→19:53)
[2019-03-08 07:00] VITALS: BP 126/76
[2019-03-08 07:11] LABS: CALCIUM 9.2 mg/dL (8.5-10.1); GFR 76.2; POTASSIUM 3.3 mmol/L (3.5-5.1)
[2019-03-08] MEDS ORDERED: ALPRAZolam 0.5 MG TABLET PO PRN (09:00)
[2019-03-08] MEDS: RIVAROXABAN 10 MG TABLET. PO SCH (09:04)
[2019-03-08] MEDS: CYANOCOBALAMIN (VITAMIN B-12) 1,000 MCG TABLET. PO SCH (09:04)
[2019-03-08] MEDS: METOPROLOL TART IMMED RELEASE 25 MG TABLET. PO SCH ×2 (09:04→20:26)
[2019-03-08] MEDS: FUROSEMIDE 20 MG TABLET PO SCH (09:04)
[2019-03-08] MEDS: POTASSIUM CHLORIDE 10 MEQ TABLET.ER. PO SCH (09:05)
[2019-03-08] MEDS: AMIODARONE HCL 200 MG TABLET. PO SCH (09:05)
[2019-03-08] MEDS: MULTIVITAMIN with MINERAL TABLET. PO SCH (09:06)
[2019-03-08] MEDS: PANTOPRAZOLE 40 MG TABLET.DR. PO SCH (09:06)
[2019-03-08] MEDS: buPROPion SR 150 MG TABLET.SA PO SCH ×2 (09:11→20:25)
--- NOTE | 2019-03-08 10:56 | PDOC ---
PROGRESS NOTES Chief Complaint Chief Complaint . Patient complaining of shortness of breath intermittently for the last 5 days that getting more constant 03/07. Patient complaining of productive cough with yellow sputum and exertional dizziness and generalized weakness. Patient complaining of episodes of chest pain is substernal and left side of his chest as a sharp pain and rated his pain 9/10. Patient was seen at urgent care 5 days ago and had Medrol Dosepak History of Present Illness History of Present Illness Assessment/Plan Assessment/Plan COPD exacerbation Acute bronchitis-no consolidation or chest x-ray Ex-smoker, smoked for 40 years Hypertension, chronic low back go, anxiety NOS-chronic stable Hypoxic RF with normal d dimer CHEST PAIN , NL CATH 04/2017 Plan: DuoNeb's, qid cough medicine, pulmo consult, home meds CARD CONSULT RE-EVAL RISK CAD TELE FULL CODE Vitals Vitals Vital Signs Date Time Temp Pulse Resp B/P (MAP) Pulse Ox O2 Delivery O2 Flow Rate FiO2 03/08/19 09:05 76 126/76 03/08/19 08:00 Room Air 03/08/19 07:00 20 96 03/08/19 03:17 97.6 97.6 Physical Exam General: Alert, Oriented X3, Cooperative, No acute distress Heart: Regular rate, Normal S1, Normal S2 Lungs: Wheezing Abdomen: Normal bowel sounds, Soft, No tenderness, No hepatosplenomegaly, No masses Extremities: No clubbing, No cyanosis, No edema, Normal pulses, No tenderness/ swelling Skin: No rashes, No breakdown, No significant lesion Labs LABS Procedure(s) performed: Left heart catheterization, selective coronary angiography and left ventriculography via right transradial approach INDICATION The indication(s) include : Cardiomyopathy. PROCEDURE NARRATIVE After explaining the risks, benefits and alternative options, informed consent was obtained from patient. Patient was brought to the cardiac Telehealth Coordinator and right wrist was prepped and draped in the usual fashion after confirming a positive modified Parth's test. Arterial access was obtained in the right radial artery and a 6 Kyrgyz sheath was inserted. 6 Kyr[place]z Ralph catheter was used to perform selective angiography of the left and right coronary arteries. 6 [place]yr[place]z pigtail catheter was used to perform left ventriculography. Patient tolerated the procedure well. Hemostasis was achieved using TR band. There were no immediate complications. The following findings were noted. FINDINGS 1. Hemodynamics: Left ventricular end-diastolic pressure of 9 mmHg. No pullback gradient across the aortic valve. 2. Left ventriculography: Normal left ventricle systolic function with ejection fraction estimated at 50-55%. No significant mitral regurgitation seen. 3. Coronary angiography: a. The left main coronary artery arose from the left sinus of Valsalva, gave rise to the left anterior descending and left circumflex arteries and did not show any significant stenosis. b. The left anterior descending artery did not show any significant stenosis. c. The left circumflex artery did not show any significant stenosis. d. The right coronary artery was a large and dominant vessel arising from the right sinus of Valsalva that did not show any significant stenosis. Conclusion 1. No significant coronary artery disease 2. Normal left ventricle systolic function with ejection fraction estimated at 50-55% Recommendations Medical Therapy DICTATED and SIGNED BY: TRACEE MORIN MD DATE: 05/10/17 0857 CC: FRIEDA MCLAIN MD; TRACEE MORIN MD ~ Mitral Valve MV E Velocity 92.8cm/s MV DECEL TIME 159ms MV A Velocity 75.5cm/s E/A Ratio 1.2 Pulmonary Vein S1 Velocity 76.1cm/s D2 Velocity 59.9cm/s LEFT VENTRICLE The Left Ventricle is mildly dilated. There is mild concentric left ventricular hypertrophy. Left ventricle systolic function is normal. The Ejection Fraction is 50-55%. There is normal LV segmental wall motion. RIGHT VENTRICLE The right ventricle is normal size. The right ventricular systolic function is normal. ATRIA The left atrium is mildly dilated. The right atrium size is normal. The interatrial septum is intact with no evidence for an atrial septal defect or patent foramen ovale as noted on 2-D or Doppler imaging. AORTIC VALVE The aortic valve is calcified but opens well. Doppler and Color Flow revealed no significant aortic regurgitation. There is no significant aortic valvular stenosis. MITRAL VALVE The mitral valve is normal in structure and function. There is no evidence of mitral valve prolapse. There is no mitral valve stenosis. Doppler and Color- flow revealed trace mitral regurgitation. TRICUSPID VALVE The tricuspid valve is normal in structure and function. Doppler and Color Flow revealed no tricuspid valve regurgitation noted. There is no tricuspid valve stenosis. PULMONIC VALVE The pulmonic valve is not well visualized. Doppler and Color Flow revealed no pulmonic valvular regurgitation. There is no pulmonic valvular stenosis. GREAT VESSELS The aortic root is normal in size. The ascending aorta is normal in size. The IVC is normal in size and collapses >50% with inspiration. PERICARDIAL EFFUSION There is no evidence of significant pericardial effusion. Critical Notification Critical Value: No <Conclusion> Left ventricle systolic function is normal. The Ejection Fraction is 50-55%. There is normal LV segmental wall motion. Trace mitral regurgitation. There is no evidence of significant pericardial effusion. Signed by : Tracee Morin, Electronically Approved : 07/07/2018 16:53:23 DICTATED and SIGNED BY: TRACEE MORIN MD DATE: 07/07/18 1653 PROCEDURE: PORTABLE CHEST 1V EXAM: CHEST 1 VIEW History: Shortness of breath COMPARISON: 06/09/2018 TECHNIQUE: Single portable radiograph of the chest FINDINGS: The cardiac silhouette is unremarkable. Mild hyperinflated lungs. Atelectasis or scarring changes identified in the left lung similar to prior exam. IMPRESSION: No radiographic evidence of an acute cardiopulmonary process. Electronically signed by: Frederick Zhou MD (03/07/2019 3:35 PM) [facility] DICTATED and SIGNED BY: FREDERICK ZHOU MD Laboratory Tests Test 03/07/19 15:20 03/07/19 21:00 03/08/19 05:35 White Blood Count 9.5 x10^3/uL (4.0-11.0) Red Blood Count 4.83 x10^6/uL (4.30-5.70) Hemoglobin 15.8 g/dL (13.0-17.5) Hematocrit 46.9 % (39.0-53.0) Mean Corpuscular Volume 97 fL (79-100) Mean Corpuscular Hemoglobin 33 pg (25-35) Mean Corpuscular Hemoglobin Concent 34 g/dL (31-37) Red Cell Distribution Width 12.6 % (11.5-14.5) Platelet Count 274 x10^3/uL (140-400) Neutrophils (%) (Auto) 68 % (31-73) Lymphocytes (%) (Auto) 22 % (24-48) Monocytes (%) (Auto) 9 % (0-9) Eosinophils (%) (Auto) 0 % (0-3) Basophils (%) (Auto) 1 % (0-3) Neutrophils # (Auto) 6.5 x10^3uL (1.8-7.7) Lymphocytes # (Auto) 2.1 x10^3/uL (1.0-4.8) Monocytes # (Auto) 0.8 x10^3/uL (0.0-1.1) Eosinophils # (Auto) 0.0 x10^3/uL (0.0-0.7) Basophils # (Auto) 0.1 x10^3/uL (0.0-0.2) D-Dimer (Chata) < 0.27 ug/mlFEU Sodium Level 141 mmol/L (136-145) 138 mmol/L (136-145) Potassium Level 4.2 mmol/L (3.5-5.1) 3.3 mmol/L (3.5-5.1) Chloride Level 102 mmol/L (98-107) 99 mmol/L (98-107) Carbon Dioxide Level 23 mmol/L (21-32) 23 mmol/L (21-32) Anion Gap 16 (6-14) 16 (6-14) Blood Urea Nitrogen 27 mg/dL (8-26) 31 mg/dL (8-26) Creatinine 1.4 mg/dL (0.7-1.3) 1.0 mg/dL (0.7-1.3) Estimated GFR (Cockcroft-Gault) 51.7 76.2 BUN/Creatinine Ratio 19 (6-20) Glucose Level 133 mg/dL (70-99) 143 mg/dL (70-99) Lactic Acid Level 2.1 mmol/L (0.4-2.0) 1.3 mmol/L (0.4-2.0) Calcium Level 9.4 mg/dL (8.5-10.1) 9.2 mg/dL (8.5-10.1) Total Bilirubin 0.8 mg/dL (0.2-1.0) Aspartate Amino Transf (AST/SGOT) 66 U/L (15-37) Alanine Aminotransferase (ALT/SGPT) 140 U/L (16-63) Alkaline Phosphatase 100 U/L (46-116) Creatine Kinase 95 U/L (39-308) Troponin I Quantitative < 0.017 ng/mL (0.000-0.055) HC-Jsw-D-Type Natriuretic Peptide 1106 pg/mL (0-124) Total Protein 7.9 g/dL (6.4-8.2) Albumin 4.0 g/dL (3.4-5.0) Albumin/Globulin Ratio 1.0 (1.0-1.7) Urine Collection Type Unknown Urine Color Iliana Urine Clarity Clear Urine pH 6.0 Urine Specific Mandan >=1.030 Urine Protein Negative mg/dL (NEG-TRACE) Urine Glucose (UA) Negative mg/dL (NEG) Urine Ketones (Stick) 15 mg/dL (NEG) Urine Blood Negative (NEG) Urine Nitrite Negative (NEG) Urine Bilirubin Small (NEG) Urine Urobilinogen Dipstick 2.0 mg/dL (0.2 mg/dL) Urine Leukocyte Esterase Negative (NEG) Urine RBC Occ /HPF (0-2) Urine WBC 0 /HPF (0-4) Urine Squamous Epithelial Cells Few /LPF Urine Bacteria 0 /HPF (0-FEW) Urine Mucus Marked /LPF Assessment and Plan Assessmemt and Plan Problems Medical Problems: (1) Afib Status: Acute (2) Anxiety Status: Acute (3) COPD exacerbation Status: Acute (4) Non-cardiac chest pain Status: Acute Comment Review of Relevant I have reviewed the following items rafael (where applicable) has been applied. Labs Laboratory Tests Test 03/07/19 15:20 03/07/19 21:00 03/08/19 05:35 White Blood Count 9.5 x10^3/uL (4.0-11.0) Red Blood Count 4.83 x10^6/uL (4.30-5.70) Hemoglobin 15.8 g/dL (13.0-17.5) Hematocrit 46.9 % (39.0-53.0) Mean Corpuscular Volume 97 fL (79-100) Mean Corpuscular Hemoglobin 33 pg (25-35) Mean Corpuscular Hemoglobin Concent 34 g/dL (31-37) Red Cell Distribution Width 12.6 % (11.5-14.5) Platelet Count 274 x10^3/uL (140-400) Neutrophils (%) (Auto) 68 % (31-73) Lymphocytes (%) (Auto) 22 % (24-48) Monocytes (%) (Auto) 9 % (0-9) Eosinophils (%) (Auto) 0 % (0-3) Basophils (%) (Auto) 1 % (0-3) Neutrophils # (Auto) 6.5 x10^3uL (1.8-7.7) Lymphocytes # (Auto) 2.1 x10^3/uL (1.0-4.8) Monocytes # (Auto) 0.8 x10^3/uL (0.0-1.1) Eosinophils # (Auto) 0.0 x10^3/uL (0.0-0.7) Basophils # (Auto) 0.1 x10^3/uL (0.0-0.2) D-Dimer (Chata) < 0.27 ug/mlFEU Sodium Level 141 mmol/L (136-145) 138 mmol/L (136-145) Potassium Level 4.2 mmol/L (3.5-5.1) 3.3 mmol/L (3.5-5.1) Chloride Level 102 mmol/L (98-107) 99 mmol/L (98-107) Carbon Dioxide Level 23 mmol/L (21-32) 23 mmol/L (21-32) Anion Gap 16 (6-14) 16 (6-14) Blood Urea Nitrogen 27 mg/dL (8-26) 31 mg/dL (8-26) Creatinine 1.4 mg/dL (0.7-1.3) 1.0 mg/dL (0.7-1.3) Estimated GFR (Cockcroft-Gault) 51.7 76.2 BUN/Creatinine Ratio 19 (6-20) Glucose Level 133 mg/dL (70-99) 143 mg/dL (70-99) Lactic Acid Level 2.1 mmol/L (0.4-2.0) 1.3 mmol/L (0.4-2.0) Calcium Level 9.4 mg/dL (8.5-10.1) 9.2 mg/dL (8.5-10.1) Total Bilirubin 0.8 mg/dL (0.2-1.0) Aspartate Amino Transf (AST/SGOT) 66 U/L (15-37) Alanine Aminotransferase (ALT/SGPT) 140 U/L (16-63) Alkaline Phosphatase 100 U/L (46-116) Creatine Kinase 95 U/L (39-308) Troponin I Quantitative < 0.017 ng/mL (0.000-0.055) PO-Yug-A-Type Natriuretic Peptide 1106 pg/mL (0-124) Total Protein 7.9 g/dL (6.4-8.2) Albumin 4.0 g/dL (3.4-5.0) Albumin/Globulin Ratio 1.0 (1.0-1.7) Urine Collection Type Unknown Urine Color Iliana Urine Clarity Clear Urine pH 6.0 Urine Specific Mandan >=1.030 Urine Protein Negative mg/dL (NEG-TRACE) Urine Glucose (UA) Negative mg/dL (NEG) Urine Ketones (Stick) 15 mg/dL (NEG) Urine Blood Negative (NEG) Urine Nitrite Negative (NEG) Urine Bilirubin Small (NEG) Urine Urobilinogen Dipstick 2.0 mg/dL (0.2 mg/dL) Urine Leukocyte Esterase Negative (NEG) Urine RBC Occ /HPF (0-2) Urine WBC 0 /HPF (0-4) Urine Squamous Epithelial Cells Few /LPF Urine Bacteria 0 /HPF (0-FEW) Urine Mucus Marked /LPF Laboratory Tests Test 03/07/19 15:20 03/07/19 21:00 03/08/19 05:35 White Blood Count 9.5 x10^3/uL (4.0-11.0) Red Blood Count 4.83 x10^6/uL (4.30-5.70) Hemoglobin 15.8 g/dL (13.0-17.5) Hematocrit 46.9 % (39.0-53.0) Mean Corpuscular Volume 97 fL (79-100) Mean Corpuscular Hemoglobin 33 pg (25-35) Mean Corpuscular Hemoglobin Concent 34 g/dL (31-37) Red Cell Distribution Width 12.6 % (11.5-14.5) Platelet Count 274 x10^3/uL (140-400) Neutrophils (%) (Auto) 68 % (31-73) Lymphocytes (%) (Auto) 22 % (24-48) Monocytes (%) (Auto) 9 % (0-9) Eosinophils (%) (Auto) 0 % (0-3) Basophils (%) (Auto) 1 % (0-3) Neutrophils # (Auto) 6.5 x10^3uL (1.8-7.7) Lymphocytes # (Auto) 2.1 x10^3/uL (1.0-4.8) Monocytes # (Auto) 0.8 x10^3/uL (0.0-1.1) Eosinophils # (Auto) 0.0 x10^3/uL (0.0-0.7) Basophils # (Auto) 0.1 x10^3/uL (0.0-0.2) D-Dimer (Chata) < 0.27 ug/mlFEU Sodium Level 141 mmol/L (136-145) 138 mmol/L (136-145) Potassium Level 4.2 mmol/L (3.5-5.1) 3.3 mmol/L (3.5-5.1) Chloride Level 102 mmol/L (98-107) 99 mmol/L (98-107) Carbon Dioxide Level 23 mmol/L (21-32) 23 mmol/L (21-32) Anion Gap 16 (6-14) 16 (6-14) Blood Urea Nitrogen 27 mg/dL (8-26) 31 mg/dL (8-26) Creatinine 1.4 mg/dL (0.7-1.3) 1.0 mg/dL (0.7-1.3) Estimated GFR (Cockcroft-Gault) 51.7 76.2 BUN/Creatinine Ratio 19 (6-20) Glucose Level 133 mg/dL (70-99) 143 mg/dL (70-99) Lactic Acid Level 2.1 mmol/L (0.4-2.0) 1.3 mmol/L (0.4-2.0) Calcium Level 9.4 mg/dL (8.5-10.1) 9.2 mg/dL (8.5-10.1) Total Bilirubin 0.8 mg/dL (0.2-1.0) Aspartate Amino Transf (AST/SGOT) 66 U/L (15-37) Alanine Aminotransferase (ALT/SGPT) 140 U/L (16-63) Alkaline Phosphatase 100 U/L (46-116) Creatine Kinase 95 U/L (39-308) Troponin I Quantitative < 0.017 ng/mL (0.000-0.055) SE-Gix-Z-Type Natriuretic Peptide 1106 pg/mL (0-124) Total Protein 7.9 g/dL (6.4-8.2) Albumin 4.0 g/dL (3.4-5.0) Albumin/Globulin Ratio 1.0 (1.0-1.7) Urine Collection Type Unknown Urine Color Iliana Urine Clarity Clear Urine pH 6.0 Urine Specific Mandan >=1.030 Urine Protein Negative mg/dL (NEG-TRACE) Urine Glucose (UA) Negative mg/dL (NEG) Urine Ketones (Stick) 15 mg/dL (NEG) Urine Blood Negative (NEG) Urine Nitrite Negative (NEG) Urine Bilirubin Small (NEG) Urine Urobilinogen Dipstick 2.0 mg/dL (0.2 mg/dL) Urine Leukocyte Esterase Negative (NEG) Urine RBC Occ /HPF (0-2) Urine WBC 0 /HPF (0-4) Urine Squamous Epithelial Cells Few /LPF Urine Bacteria 0 /HPF (0-FEW) Urine Mucus Marked /LPF Medications Current Medications Albuterol/ Ipratropium (Duoneb) 3 ml 1X ONCE NEB Last administered on 15:13; Start 03/07/19 at 15:00; Stop 03/07/19 at 15:05; Status DC Methylprednisolone Sodium Succinate (SOLU-Medrol 125MG VIAL) 125 mg 1X ONCE IV Last administered on 03/07/19 15:27; Start 03/07/19 at 15:00; Stop 03/07/19 at 15:05; Status DC Fentanyl Citrate (Fentanyl 2ml Vial) 50 mcg 1X ONCE IV Last administered on 16:08; Start 03/07/19 at 16:15; Stop 03/07/19 at 16:16; Status DC Ceftriaxone Sodium (Rocephin) 1 gm 1X ONCE IVP Last administered on 03/07/19at 17:27; Start 03/07/19 at 16:45; Stop 03/07/19 at 16:46; Status DC Albuterol/ Ipratropium (Duoneb) 3 ml RTQID NEB Last administered on 03/08/19at 06:25; Start 03/07/19 at 20:00 Guaifenesin (Robitussin Dm) 10 ml PRN Q6HRS PRN PO COUGH Last administered on 04:47; Start 03/07/19 at 17:15 Temazepam (Restoril) 7.5 mg PRN QHS PRN PO INSOMNIA; Start 03/07/19 at 17:15 Acetaminophen (Tylenol) 500 mg PRN Q6HRS PRN PO MILD PAIN / TEMP; Start at 17:15 Acetaminophen/ Codeine Phosphate (Tylenol #3) 1 tab PRN Q6HRS PRN PO MODERATE PAIN; Start 03/07/19 at 17:15 Ondansetron HCl (Zofran) 4 mg PRN Q6HRS PRN IV NAUSEA/VOMITING; Start 03/07/19 at 17:15 Oxycodone/ Acetaminophen (Percocet 5/325) 1 tab PRN Q4HRS PRN PO SEVERE PAIN Last administered on 03/08/19at 04:47; Start 03/07/19 at 17:15 Albuterol Sulfate (Ventolin Neb Soln) 1 mg PRN Q4HRS PRN INH SHORTNESS OF BREATH; Start 03/07/19 at 22:30 Alprazolam (Xanax) 0.25 mg QHS PO Last administered on 03/07/19at 23:14; Start at 23:00 Amiodarone HCl (Cordarone) 200 mg DAILY PO Last administered on 03/08/19 09:05 ; Start 03/08/19 at 09:00 Bupropion HCl (Wellbutrin Sr) 300 mg DAILY PO Last administered on 03/08/19at 09 :11; Start 03/08/19 at 09:00 Cyanocobalamin (Vitamin B-12) 2,500 mcg DAILY PO Last administered on 09:04; Start 03/08/19 at 09:00 Furosemide (Lasix) 20 mg DAILY PO Last administered on 03/08/19 09:04; Start 03/08/19 at 09:00 Metoprolol Tartrate (Lopressor) 25 mg BID PO Last administered on 03/08/19 09: 04; Start 03/07/19 at 23:00 Diltiazem HCl (Cardizem 24hr Cd) 240 mg DAILY PO Last administered on 09:05; Start 03/08/19 at 09:00 Multivitamins (Thera M Plus) 1 tab DAILY PO Last administered on 03/08/19at 09: 06; Start 03/08/19 at 09:00 Potassium Chloride (Klor-Con) 10 meq DAILY08 PO Last administered on 03/08/19at 09:05; Start 03/08/19 at 08:00 Rivaroxaban (Xarelto) 20 mg DAILY PO Last administered on 03/08/19at 09:04; Start 03/08/19 at 09:00 Atorvastatin Calcium (Lipitor) 80 mg HS PO ; Start 03/08/19 at 21:00 Pantoprazole Sodium (Protonix) 40 mg DAILYAC PO Last administered on 03/08/19at 09:06; Start 03/08/19 at 07:30 Alprazolam (Xanax) 0.5 mg PRN DAILY PRN PO ANXIETY / AGITATION; Start 03/08/19 at 09:00 Bupropion HCl (Wellbutrin Sr) 150 mg QHS PO Last administered on 03/07/19at 23:14 ; Start 03/07/19 at 23:00 Active Scripts Active Reported Doxycycline Hyclate 100 Mg Tablet 1 Tab PO BID Proair Hfa (Albuterol Sulfate) 8.5 Gm Hfa.aer.ad 2 Puff IN PRN Q4HRS PRN Furosemide 20 Mg Tablet 1 Tab PO DAILY Klor-Con 10 (Potassium Chloride) 10 Meq Tablet.er 1 Tab PO DAILY Cardizem Cd (Diltiazem Hcl) 240 Mg Cap.er.24h 1 Cap PO DAILY Amiodarone Hcl 200 Mg Tablet 1 Tab PO DAILY Vitamin And Minerals (Multivitamins,Ther W-Minerals) 1 Each Tablet 1 Each PO DAILY Vitamin B-12 (Cyanocobalamin (Vitamin B-12)) 1,000 Mcg Tablet 2,500 Mcg PO DAILY Metoprolol Tartrate 25 Mg Tablet 25 Mg PO BID Xarelto (Rivaroxaban) 20 Mg Tablet 20 Mg PO DAILY Xanax (Alprazolam) 0.25 Mg Tablet 0.25 Mg PO BID 2 tabs in the am, 1 tab at night Crestor (Rosuvastatin Calcium) 40 Mg Tablet 40 Mg PO DAILY Nexium Capsule (Esomeprazole Magnesium) 40 Mg Capsule.dr 40 Mg PO Wellbutrin Sr (Bupropion Hcl) 150 Mg Tablet.er 150 Mg PO BID 2 tabs in the am, 1 tab at hs Vitals/I & O Vital Sign - Last 24 Hours 03/07/19 03/07/19 03/07/1903/07/19 14:42 15:16 15:18 15:46 Temp 97.3 97.3 Pulse 97 102 92 Resp 24 25 18 B/P (MAP) 107/86 (93) 109/76 (87) 105/71 (82) Pulse Ox 99 99 98 97 O2 Delivery Room Air Room Air Room Air Room Air 03/07/19 03/07/19 03/07/19 03/07/19 16:08 16:16 16:46 17:16 Pulse 86 94 96 Resp 15 16 16 B/P (MAP) 117/85 (96) 118/92 (101) 124/89 (101) Pulse Ox 96 94 95 O2 Delivery Room Air Room Air Room Air 03/07/19 03/07/19 03/07/19 03/07/19 17:46 18:16 19:40 19:45 Temp 97.4 97.4 Pulse 66 68 89 Resp 22 25 22 B/P (MAP) 137/75 (95) 127/74 (91) 121/77 (92) Pulse Ox 97 96 95 O2 Delivery Room Air Room Air Room Air Room Air 03/07/19 03/07/19 03/07/19 03/07/19 20:29 21:02 22:13 23:14 Pulse 89 Resp 22 20 B/P (MAP) 121/77 Pulse Ox 95 O2 Delivery Room Air Room Air Room Air 03/07/19 03/08/19 03/08/19 03/08/19 23:26 03:17 04:47 06:25 Temp 97.5 97.6 97.5 97.6 Pulse 71 78 Resp 18 18 20 B/P (MAP) 113/73 (86) 120/72 (88) Pulse Ox 91 92 96 O2 Delivery Room Air Room Air Room Air Room Air 03/08/19 03/08/19 03/08/19 03/08/19 07:00 08:00 09:04 09:05 Pulse 76 76 76 Resp 20 B/P (MAP) 126/76 (93) 126/76 126/76 Pulse Ox 96 O2 Delivery Room Air Room Air 03/08/19 09:05 Pulse 76 B/P (MAP) 126/76 Intake and Output 03/07/19 03/07/19 03/08/19 15:00 23:00 07:00 Intake Total 400 ml 540 ml Output Total 100 ml 300 ml Balance 300 ml 240 ml YANCY VALDERRAMA MD Mar 08, 2019 10:56
[2019-03-08 11:00] VITALS: BP 117/69
--- NOTE | 2019-03-08 13:49 | CONS ---
DATE OF CONSULTATION: ATTENDING PHYSICIAN: Dr. Cash. REASON FOR CONSULTATION: Dyspnea. HISTORY OF PRESENT ILLNESS: The patient is a 59-year-old obese male with a BMI of 37.5. He smoked for about 40 years before quitting 5 years ago. He presented to the hospital after he was seen initially in urgent care for dyspnea, cough and wheezing. He was given steroids and antibiotic, which did not help. He was hospitalized as he was not feeling better. He said he has audible wheezing, but he feels much better as he was saturating 80% at the urgent care. No headaches, no nausea or vomiting, no diarrhea, no dysuria, no focal weakness. No skin rash. Chest x-ray did not reveal any acute infiltrate. He does have a cough with light green sputum production. PAST MEDICAL HISTORY: Suspected COPD. History of hypertension, hyperlipidemia, cholelithiasis and has depression, panic episodes. PAST SURGICAL HISTORY: Cholecystectomy and hernia repair. FAMILY HISTORY: Cancer and obesity. SOCIAL HISTORY: Quit tobacco 5 years ago, before that smoked for 40 years. MEDICATIONS: All reviewed as listed in the MRAD. REVIEW OF SYSTEMS: A 12-point system review obtained, pertinent positives discussed in my history of present illness, otherwise noncontributory. All systems that were negative were reviewed as well. PHYSICAL EXAMINATION: VITAL SIGNS: Reviewed. Afebrile, pulse ox 100% room air. NECK: Supple. LUNGS: With faint expiratory wheeze. CARDIOVASCULAR: Regular rate and rhythm. ABDOMEN: Soft, nontender, obese. EXTREMITIES: No pitting edema. LABORATORY DATA: Reviewed. White cell count 9.5, hemoglobin 15.8. D-dimer is less than 0.27. BUN and creatinine 31 and 1.0. IMPRESSION: 1. Dyspnea secondary to acute exacerbation of chronic obstructive pulmonary disease in a patient who smoked for 40 years. 2. Acute bronchitis with no definite consolidation seen on the chest x-ray. 3. Underlying morbid obesity. RECOMMENDATIONS: 1. Continue with present bronchodilators. 2. Continue with present antibiotics. 3. Weight loss was strongly emphasized. 4. The patient may benefit from sleep study as an outpatient. 5. Xarelto per PCP. 6. Anticipate hospitalization for another 24 hours. KENDALL CERVANTES MD DR: PRITI/dioni JOB#: [id number] / [id number]
[2019-03-08 15:00] VITALS: BP 116/57
[2019-03-08] MEDS: cefTRIAXone IV Push 1 GM VIAL. IVP SCH (17:23)
[2019-03-08 19:00] VITALS: BP 118/70
[2019-03-08] MEDS: ALPRAZolam 0.25 MG TABLET PO SCH (20:25)
[2019-03-08] MEDS: LACTOBACILLUS RHAMNOSUS GG 1 CAPSULE. PO SCH (20:25)
[2019-03-08] MEDS: ATORVASTATIN CALCIUM 40 MG TABLET. PO SCH (20:26)
[2019-03-08 23:00] VITALS: BP 114/69
[2019-03-09 03:00] VITALS: BP 117/63
[2019-03-09 04:21] LABS: BASO % 0 % (0-3); EOS % 0 % (0-3); HEMATOCRIT 40.8 % (39.0-53.0); HEMOGLOBIN 13.7 g/dL (13.0-17.5); LYMPH # 1.5 x10^3/uL (1.0-4.8); LYMPH % 15 % (24-48); MEAN CORPUSCULAR HEMOGLOBIN 33 pg (25-35); MEAN CORPUSCULAR HGB CONC 34 g/dL (31-37); MEAN CORPUSCULAR VOLUME 97 fL (79-100); MONO # 0.8 x10^3/uL (0.0-1.1); MONO % 8 % (0-9); NEUT # 7.9 x10^3uL (1.8-7.7); NEUT % 77 % (31-73); PLATELET COUNT 246 x10^3/uL (140-400); RED BLOOD COUNT 4.18 x10^6/uL (4.30-5.70); RED CELL DISTRIBUTION WIDTH 12.7 % (11.5-14.5); WHITE BLOOD COUNT 10.2 x10^3/uL (4.0-11.0)
[2019-03-09 04:37] LABS: CALCIUM 9.1 mg/dL (8.5-10.1); CREATININE 1.1 mg/dL (0.7-1.3); GFR 68.3; POTASSIUM 3.1 mmol/L (3.5-5.1)
[2019-03-09] MEDS: IPRATRPIUM/ALBUTEROL 0.5/2.5MG 3 ML NEBU. NEB SCH ×4 (06:11→19:52)
[2019-03-09 07:30] VITALS: BP 117/69
[2019-03-09] MEDS: MULTIVITAMIN with MINERAL TABLET. PO SCH (09:31)
[2019-03-09] MEDS: FUROSEMIDE 20 MG TABLET PO SCH (09:31)
[2019-03-09] MEDS: RIVAROXABAN 10 MG TABLET. PO SCH (09:31)
[2019-03-09] MEDS: AMIODARONE HCL 200 MG TABLET. PO SCH (09:31)
[2019-03-09] MEDS: CYANOCOBALAMIN (VITAMIN B-12) 1,000 MCG TABLET. PO SCH (09:32)
[2019-03-09] MEDS: LACTOBACILLUS RHAMNOSUS GG 1 CAPSULE. PO SCH ×2 (09:33→21:10)
[2019-03-09] MEDS: buPROPion SR 150 MG TABLET.SA PO SCH ×2 (09:33→21:10)
[2019-03-09] MEDS: PANTOPRAZOLE 40 MG TABLET.DR. PO SCH (09:33)
[2019-03-09] MEDS: POTASSIUM CHLORIDE 10 MEQ TABLET.ER. PO SCH (09:34)
[2019-03-09] MEDS: METOPROLOL TART IMMED RELEASE 25 MG TABLET. PO SCH ×2 (09:35→21:09)
[2019-03-09] MEDS: guaiFENesin DM 200MG/20MG 10 ML SYRUP PO PRN (09:38)
--- NOTE | 2019-03-09 09:40 | PDOC2 ---
SHERICE GONZALES [employer] 03/09/19 0940: CARDIAC CONSULT DATE OF CONSULT Date of Consult DATE: 03/09/19 TIME: 09:23 REASON FOR CONSULT Reason for Consult: Chest Pain REFERRING PHYSICIAN Referring Physician: Dr. Camejo SOURCE Source: Chart review, Patient HISTORY OF PRESENT ILLNESS HISTORY OF PRESENT ILLNESS This is a 59 yo male, with a history of AFIB s/p cardioversion and diastolic CHF , who presented secondary to shortness of breath, cough, and congestion. Patient reports cough productive of green/yellow sputum and congestion began last week. Was slightly short of breath. Was seen in [facility] last Wednesday. Was treated with steroids and antibiotic therapy. Reports breathing has progressively worsened since Wednesday, which prompted him to come to the ED for further evaluation and treatment. Does report having brief episode of stabbing pain in his left chest last Wednesday. Was slightly dizzy. [place] as is his heart was beating extremely fast. No diaphoresis or nausea/vomiting. Pain lasted for about 5 minutes and resolved without intervention. No further chest pain/ palpitations since Wednesday. Reports compliance with medications. PAST MEDICAL HISTORY Cardiovascular: AFIB, CHF, Hyperlipidemia Pulmonary: COPD CENTRAL NERVOUS SYSTEM: Other (no pertinent hx) GI: GERD, Other (gastroparesis ) Heme/Onc: No pertinent hx Hepatobiliary: No pertinent hx Psych: Anxiety Rheumatologic: No pertinent hx Infectious disease: No pertinent hx ENT: No pertinent hx Renal/: No pertinent hx Endocrine: No pertinent hx Dermatology: No pertinent hx PAST SURGICAL HISTORY Past Surgical History: Appendectomy, Cholecystectomy, Hernia Repair FAMILY HISTORY Family History: Cancer SOCIAL HISTORY Smoke: Quit (5 years ago) ALCOHOL: occassional Drugs: None Lives: with Family CURRENT MEDICATIONS CURRENT MEDICATIONS Current Medications Medications (Trade) Dose Ordered Sig/Padmini Route PRN Reason Start Time Stop Time Status Last Admin Dose Admin Atorvastatin Calcium (Lipitor) 80 mg HS PO 03/08/19 21:00 03/08/19 20:26 Ceftriaxone Sodium (Rocephin) 1 gm Q24H IVP 03/08/19 17:00 03/08/19 17:23 Lactobacillus Rhamnosus (Culturelle) 1 cap BID PO 03/08/19 21:00 03/08/19 20:25 ALLERGIES ALLERGIES: Coded Allergies: No Known Drug Allergies (Unverified , 11/16/14) ROS Review of System 14 point ROS conducted with pertinent positives noted above in HPI. PHYSICAL EXAM General: Alert, Oriented X3, Cooperative, No acute distress HEENT: Atraumatic Lungs: Other (diminished bases, faint expiratroy wheezes) Heart: Regular rate, Normal S1, Normal S2 Abdomen: Soft, No tenderness Extremities: No edema, Normal pulses Skin: No significant lesion Neuro: Normal speech, Sensation intact Psych/Mental Status: Mental status NL, Mood NL MUSCULOSKELETAL: No deformity VITALS VITALS Vital Signs Date Time Temp Pulse Resp B/P (MAP) Pulse Ox O2 Delivery O2 Flow Rate FiO2 03/09/19 07:30 97.7 61 20 117/69 (85) 95 Room Air 97.7 LABS Lab: Laboratory Tests Test 03/09/19 03:00 White Blood Count 10.2 x10^3/uL (4.0-11.0) Red Blood Count 4.18 x10^6/uL (4.30-5.70) Hemoglobin 13.7 g/dL (13.0-17.5) Hematocrit 40.8 % (39.0-53.0) Mean Corpuscular Volume 97 fL (79-100) Mean Corpuscular Hemoglobin 33 pg (25-35) Mean Corpuscular Hemoglobin Concent 34 g/dL (31-37) Red Cell Distribution Width 12.7 % (11.5-14.5) Platelet Count 246 x10^3/uL (140-400) Neutrophils (%) (Auto) 77 % (31-73) Lymphocytes (%) (Auto) 15 % (24-48) Monocytes (%) (Auto) 8 % (0-9) Eosinophils (%) (Auto) 0 % (0-3) Basophils (%) (Auto) 0 % (0-3) Neutrophils # (Auto) 7.9 x10^3uL (1.8-7.7) Lymphocytes # (Auto) 1.5 x10^3/uL (1.0-4.8) Monocytes # (Auto) 0.8 x10^3/uL (0.0-1.1) Eosinophils # (Auto) 0.0 x10^3/uL (0.0-0.7) Basophils # (Auto) 0.0 x10^3/uL (0.0-0.2) Sodium Level 142 mmol/L (136-145) Potassium Level 3.1 mmol/L (3.5-5.1) Chloride Level 104 mmol/L (98-107) Carbon Dioxide Level 27 mmol/L (21-32) Anion Gap 11 (6-14) Blood Urea Nitrogen 22 mg/dL (8-26) Creatinine 1.1 mg/dL (0.7-1.3) Estimated GFR (Cockcroft-Gault) 68.3 Glucose Level 109 mg/dL (70-99) Calcium Level 9.1 mg/dL (8.5-10.1) ECHOCARDIOGRAM ECHOCARDIOGRAM <Conclusion> Left ventricle systolic function is normal. The Ejection Fraction is 50-55%. There is normal LV segmental wall motion. Trace mitral regurgitation. There is no evidence of significant pericardial effusion. DATE: 07/07/18 1653 STRESS TEST STRESS TEST Conclusion 1. #1. Atrial fibrillation 2. #2. Abnormal stress test with reversible perfusion defect in the anteroapical and inferior donald suggestive of ischemia 3. #3. Global hypokinesis with ejection fraction of 35% calculated by gated imaging 4. #4. Intermediate risk scan with a summed difference score of 6 Recommendations Optimize medical therapy and consider invasive diagnostic measures if indicated. DATE: 07/04/14 1251 HEART CATH HEART CATH FINDINGS 1. Hemodynamics: Left ventricular end-diastolic pressure of 9 mmHg. No pullback gradient across the aortic valve. 2. Left ventriculography: Normal left ventricle systolic function with ejection fraction estimated at 50-55%. No significant mitral regurgitation seen. 3. Coronary angiography: a. The left main coronary artery arose from the left sinus of Valsalva, gave rise to the left anterior descending and left circumflex arteries and did not show any significant stenosis. b. The left anterior descending artery did not show any significant stenosis. c. The left circumflex artery did not show any significant stenosis. d. The right coronary artery was a large and dominant vessel arising from the right sinus of Valsalva that did not show any significant stenosis. Conclusion 1. No significant coronary artery disease 2. Normal left ventricle systolic function with ejection fraction estimated at 50-55% Recommendations Medical Therapy DATE: 05/10/17 0857 ASSESSMENT/PLAN ASSESSMENT/PLAN 1. Chest pain, atypical. AMi ruled out. Cardiac cath 04/2017 did not show any significant CAD. ? related to brief episode of AFIB with RVR with associated palpitations 2. Dyspnea secondary to combination of bronchitis and AECOPD. Improved 3. Chronic diastolic HF; LVEF 50-55%. Clinically compensated 4. PAFIB s/p CV; Event monitor last year showed paroxysms of AFIB despite amiodarone therapy. Was referred to EP for possible ablation therapy, but has not seen EP. No significant tachyarrhythmias noted thus far on telemetry 5. Hyperlipidemia; statin 6. ROGER; improved 7. Hypokalemia Recommendations Replace K Check Mg- replace as warranted Continue Cardizem, metoprolol, and Amiodarone for rhythm/rate control Xarelto for stroke prevention Echo to assess LV systolic function Follow pulmonary recs Will refer to EP on an outpatient basis TRACEE MORIN MD 03/09/19 1609: CARDIAC CONSULT ASSESSMENT/PLAN ASSESSMENT/PLAN Patient seen and examined. Agree with CPC's assessment and plan. Chest pain with atypical features Myocardial infarction has been ruled out 2-D echo showed LVEF 45-50% Cardiac catheterization in 2017 did not show any significant coronary artery disease Plan for outpatient referral to EP for recurrent episodes of palpitations possibly from atrial fibrillation Thank you for your consultation SHERICE GONZALES APRN Mar 09, 2019 09:40 TRACEE MORIN MD Mar 09, 2019 16:09
--- NOTE | 2019-03-09 10:25 | PDOC ---
PROGRESS NOTES Chief Complaint Chief Complaint . Patient complaining of shortness of breath intermittently for the last 5 days that getting more constant 03/07. Patient complaining of productive cough with yellow sputum and exertional dizziness and generalized weakness. Patient complaining of episodes of chest pain is substernal and left side of his chest as a sharp pain and rated his pain 9/10. Patient was seen at urgent care 5 days ago and had Medrol Dosepak History of Present Illness History of Present Illness Assessment/Plan COPD exacerbation, acute slow to improve 40 pk yr hx Acute bronchitis-no consolidation or chest x-ray Ex-smoker, smoked for 40 years Hypertension, chronic low back go, anxiety NOS-chronic stable Hypoxic RF with normal d dimer CHEST PAIN , NL CATH 04/2017 Plan: [facility], [place] cough medicine, pulmo consult, continue current rx home meds CARD CONSULT RE-EVAL RISK CAD TELE refer to EP on an outpatient basis FULL CODE Vitals Vitals Vital Signs Date Time Temp Pulse Resp B/P (MAP) Pulse Ox O2 Delivery O2 Flow Rate FiO2 03/09/19 09:35 61 117/69 03/09/19 08:00 Room Air 03/09/19 07:30 97.7 20 95 97.7 Physical Exam General: Alert, Oriented X3, Cooperative, No acute distress, mild distress Heart: Regular rate, Normal S1, Normal S2 Lungs: Wheezing Abdomen: Normal bowel sounds, Soft, No tenderness, No hepatosplenomegaly, No masses Extremities: No clubbing, No cyanosis, No edema, Normal pulses, No tenderness/ swelling Skin: No rashes, No breakdown, No significant lesion Labs LABS Laboratory Tests Test 03/09/19 03:00 White Blood Count 10.2 x10^3/uL (4.0-11.0) Red Blood Count 4.18 x10^6/uL (4.30-5.70) Hemoglobin 13.7 g/dL (13.0-17.5) Hematocrit 40.8 % (39.0-53.0) Mean Corpuscular Volume 97 fL (79-100) Mean Corpuscular Hemoglobin 33 pg (25-35) Mean Corpuscular Hemoglobin Concent 34 g/dL (31-37) Red Cell Distribution Width 12.7 % (11.5-14.5) Platelet Count 246 x10^3/uL (140-400) Neutrophils (%) (Auto) 77 % (31-73) Lymphocytes (%) (Auto) 15 % (24-48) Monocytes (%) (Auto) 8 % (0-9) Eosinophils (%) (Auto) 0 % (0-3) Basophils (%) (Auto) 0 % (0-3) Neutrophils # (Auto) 7.9 x10^3uL (1.8-7.7) Lymphocytes # (Auto) 1.5 x10^3/uL (1.0-4.8) Monocytes # (Auto) 0.8 x10^3/uL (0.0-1.1) Eosinophils # (Auto) 0.0 x10^3/uL (0.0-0.7) Basophils # (Auto) 0.0 x10^3/uL (0.0-0.2) Sodium Level 142 mmol/L (136-145) Potassium Level 3.1 mmol/L (3.5-5.1) Chloride Level 104 mmol/L (98-107) Carbon Dioxide Level 27 mmol/L (21-32) Anion Gap 11 (6-14) Blood Urea Nitrogen 22 mg/dL (8-26) Creatinine 1.1 mg/dL (0.7-1.3) Estimated GFR (Cockcroft-Gault) 68.3 Glucose Level 109 mg/dL (70-99) Calcium Level 9.1 mg/dL (8.5-10.1) Magnesium Level 2.2 mg/dL (1.8-2.4) Troponin I Quantitative < 0.017 ng/mL (0.000-0.055) Assessment and Plan Assessmemt and Plan Problems Medical Problems: (1) Afib Status: Acute (2) Anxiety Status: Acute (3) COPD exacerbation Status: Acute (4) Non-cardiac chest pain Status: Acute Comment Review of Relevant I have reviewed the following items rafael (where applicable) has been applied. Labs Laboratory Tests Test 03/07/19 15:20 03/07/19 21:00 03/08/19 05:35 03/09/19 03:00 White Blood Count 9.5 x10^3/uL (4.0-11.0) 10.2 x10^3/uL (4.0-11.0) Red Blood Count 4.83 x10^6/uL (4.30-5.70) 4.18 x10^6/uL (4.30-5.70) Hemoglobin 15.8 g/dL (13.0-17.5) 13.7 g/dL (13.0-17.5) Hematocrit 46.9 % (39.0-53.0) 40.8 % (39.0-53.0) Mean Corpuscular Volume 97 fL (79-100) 97 fL (79-100) Mean Corpuscular Hemoglobin 33 pg (25-35) 33 pg (25-35) Mean Corpuscular Hemoglobin Concent 34 g/dL (31-37) 34 g/dL (31-37) Red Cell Distribution Width 12.6 % (11.5-14.5) 12.7 % (11.5-14.5) Platelet Count 274 x10^3/uL (140-400) 246 x10^3/uL (140-400) Neutrophils (%) (Auto) 68 % (31-73) 77 % (31-73) Lymphocytes (%) (Auto) 22 % (24-48) 15 % (24-48) Monocytes (%) (Auto) 9 % (0-9) 8 % (0-9) Eosinophils (%) (Auto) 0 % (0-3) 0 % (0-3) Basophils (%) (Auto) 1 % (0-3) 0 % (0-3) Neutrophils # (Auto) 6.5 x10^3uL (1.8-7.7) 7.9 x10^3uL (1.8-7.7) Lymphocytes # (Auto) 2.1 x10^3/uL (1.0-4.8) 1.5 x10^3/uL (1.0-4.8) Monocytes # (Auto) 0.8 x10^3/uL (0.0-1.1) 0.8 x10^3/uL (0.0-1.1) Eosinophils # (Auto) 0.0 x10^3/uL (0.0-0.7) 0.0 x10^3/uL (0.0-0.7) Basophils # (Auto) 0.1 x10^3/uL (0.0-0.2) 0.0 x10^3/uL (0.0-0.2) D-Dimer (Chata) < 0.27 ug/mlFEU Sodium Level 141 mmol/L (136-145) 138 mmol/L (136-145) 142 mmol/L (136-145) Potassium Level 4.2 mmol/L (3.5-5.1) 3.3 mmol/L (3.5-5.1) 3.1 mmol/L (3.5-5.1) Chloride Level 102 mmol/L (98-107) 99 mmol/L (98-107) 104 mmol/L (98-107) Carbon Dioxide Level 23 mmol/L (21-32) 23 mmol/L (21-32) 27 mmol/L (21-32) Anion Gap 16 (6-14) 16 (6-14) 11 (6-14) Blood Urea Nitrogen 27 mg/dL (8-26) 31 mg/dL (8-26) 22 mg/dL (8-26) Creatinine 1.4 mg/dL (0.7-1.3) 1.0 mg/dL (0.7-1.3) 1.1 mg/dL (0.7-1.3) Estimated GFR (Cockcroft-Gault) 51.7 76.2 68.3 BUN/Creatinine Ratio 19 (6-20) Glucose Level 133 mg/dL (70-99) 143 mg/dL (70-99) 109 mg/dL (70-99) Lactic Acid Level 2.1 mmol/L (0.4-2.0) 1.3 mmol/L (0.4-2.0) Calcium Level 9.4 mg/dL (8.5-10.1) 9.2 mg/dL (8.5-10.1) 9.1 mg/dL (8.5-10.1) Total Bilirubin 0.8 mg/dL (0.2-1.0) Aspartate Amino Transf (AST/SGOT) 66 U/L (15-37) Alanine Aminotransferase (ALT/SGPT) 140 U/L (16-63) Alkaline Phosphatase 100 U/L (46-116) Creatine Kinase 95 U/L (39-308) Troponin I Quantitative < 0.017 ng/mL (0.000-0.055) < 0.017 ng/mL (0.000-0.055) TA-Hgp-M-Type Natriuretic Peptide 1106 pg/mL (0-124) Total Protein 7.9 g/dL (6.4-8.2) Albumin 4.0 g/dL (3.4-5.0) Albumin/Globulin Ratio 1.0 (1.0-1.7) Urine Collection Type Unknown Urine Color Iliana Urine Clarity Clear Urine pH 6.0 Urine Specific [place] >=1.030 Urine Protein Negative mg/dL (NEG-TRACE) Urine Glucose (UA) Negative mg/dL (NEG) Urine Ketones (Stick) 15 mg/dL (NEG) Urine Blood Negative (NEG) Urine Nitrite Negative (NEG) Urine Bilirubin Small (NEG) Urine Urobilinogen Dipstick 2.0 mg/dL (0.2 mg/dL) Urine Leukocyte Esterase Negative (NEG) Urine RBC Occ /HPF (0-2) Urine WBC 0 /HPF (0-4) Urine Squamous Epithelial Cells Few /LPF Urine Bacteria 0 /HPF (0-FEW) Urine Mucus Marked /LPF Magnesium Level 2.2 mg/dL (1.8-2.4) Laboratory Tests Test 03/09/19 03:00 White Blood Count 10.2 x10^3/uL (4.0-11.0) Red Blood Count 4.18 x10^6/uL (4.30-5.70) Hemoglobin 13.7 g/dL (13.0-17.5) Hematocrit 40.8 % (39.0-53.0) Mean Corpuscular Volume 97 fL (79-100) Mean Corpuscular Hemoglobin 33 pg (25-35) Mean Corpuscular Hemoglobin Concent 34 g/dL (31-37) Red Cell Distribution Width 12.7 % (11.5-14.5) Platelet Count 246 x10^3/uL (140-400) Neutrophils (%) (Auto) 77 % (31-73) Lymphocytes (%) (Auto) 15 % (24-48) Monocytes (%) (Auto) 8 % (0-9) Eosinophils (%) (Auto) 0 % (0-3) Basophils (%) (Auto) 0 % (0-3) Neutrophils # (Auto) 7.9 x10^3uL (1.8-7.7) Lymphocytes # (Auto) 1.5 x10^3/uL (1.0-4.8) Monocytes # (Auto) 0.8 x10^3/uL (0.0-1.1) Eosinophils # (Auto) 0.0 x10^3/uL (0.0-0.7) Basophils # (Auto) 0.0 x10^3/uL (0.0-0.2) Sodium Level 142 mmol/L (136-145) Potassium Level 3.1 mmol/L (3.5-5.1) Chloride Level 104 mmol/L (98-107) Carbon Dioxide Level 27 mmol/L (21-32) Anion Gap 11 (6-14) Blood Urea Nitrogen 22 mg/dL (8-26) Creatinine 1.1 mg/dL (0.7-1.3) Estimated GFR (Cockcroft-Gault) 68.3 Glucose Level 109 mg/dL (70-99) Calcium Level 9.1 mg/dL (8.5-10.1) Magnesium Level 2.2 mg/dL (1.8-2.4) Troponin I Quantitative < 0.017 ng/mL (0.000-0.055) Microbiology 03/07/19 Blood Culture - Preliminary, Resulted NO GROWTH AFTER 1 DAY Medications Current Medications Albuterol/ Ipratropium (Duoneb) 3 ml 1X ONCE NEB Last administered on at 15:13; Start 03/07/19 at 15:00; Stop 03/07/19 at 15:05; Status DC Methylprednisolone Sodium Succinate (SOLU-Medrol 125MG VIAL) 125 mg 1X ONCE IV Last administered on 03/07/19at 15:27; Start 03/07/19 at 15:00; Stop 03/07/19 at 15:05; Status DC Fentanyl Citrate (Fentanyl 2ml Vial) 50 mcg 1X ONCE IV Last administered on 03/07/19at 16:08; Start 03/07/19 at 16:15; Stop 03/07/19 at 16:16; Status DC Ceftriaxone Sodium (Rocephin) 1 gm 1X ONCE IVP Last administered on 03/07/19at 17:27; Start 03/07/19 at 16:45; Stop 03/07/19 at 16:46; Status DC Albuterol/ Ipratropium (Duoneb) 3 ml RTQID NEB Last administered on 03/09/19 06:11; Start 03/07/19 at 20:00 Guaifenesin (Robitussin Dm) 10 ml PRN Q6HRS PRN PO COUGH Last administered on at 09:38; Start 03/07/19 at 17:15 Temazepam (Restoril) 7.5 mg PRN QHS PRN PO INSOMNIA; Start 03/07/19 at 17:15 Acetaminophen (Tylenol) 500 mg PRN Q6HRS PRN PO MILD PAIN / TEMP; Start at 17:15 Acetaminophen/ Codeine Phosphate (Tylenol #3) 1 tab PRN Q6HRS PRN PO MODERATE PAIN; Start 03/07/19 at 17:15 Ondansetron HCl (Zofran) 4 mg PRN Q6HRS PRN IV NAUSEA/VOMITING; Start 03/07/19 at 17:15 Oxycodone/ Acetaminophen (Percocet 5/325) 1 tab PRN Q4HRS PRN PO SEVERE PAIN Last administered on 03/08/19at 14:54; Start 03/07/19 at 17:15 Albuterol Sulfate (Ventolin Neb Soln) 1 mg PRN Q4HRS PRN INH SHORTNESS OF BREATH; Start 03/07/19 at 22:30 Alprazolam (Xanax) 0.25 mg QHS PO Last administered on 03/08/19at 20:25; Start 03/07/19 at 23:00 Amiodarone HCl (Cordarone) 200 mg DAILY PO Last administered on 03/09/19 09:31 ; Start 03/08/19 at 09:00 Bupropion HCl (Wellbutrin Sr) 300 mg DAILY PO Last administered on 03/09/19 09 :33; Start 03/08/19 at 09:00 Cyanocobalamin (Vitamin B-12) 2,500 mcg DAILY PO Last administered on 09:32; Start 03/08/19 at 09:00 Furosemide (Lasix) 20 mg DAILY PO Last administered on 03/09/19 09:31; Start 03/08/19 at 09:00 Metoprolol Tartrate (Lopressor) 25 mg BID PO Last administered on 03/09/19 09: 35; Start 03/07/19 at 23:00 Diltiazem HCl (Cardizem 24hr Cd) 240 mg DAILY PO Last administered on 09:34; Start 03/08/19 at 09:00 Multivitamins (Thera M Plus) 1 tab DAILY PO Last administered on 03/09/19 09: 31; Start 03/08/19 at 09:00 Potassium Chloride (Klor-Con) 10 meq DAILY08 PO Last administered on 03/09/19 09:34; Start 03/08/19 at 08:00 Rivaroxaban (Xarelto) 20 mg DAILY PO Last administered on 03/09/19 09:31; Start 03/08/19 at 09:00 Atorvastatin Calcium (Lipitor) 80 mg HS PO Last administered on 03/08/19 20:26 ; Start 03/08/19 at 21:00 Pantoprazole Sodium (Protonix) 40 mg DAILYAC PO Last administered on 03/09/19 09:33; Start 03/08/19 at 07:30 Alprazolam (Xanax) 0.5 mg PRN DAILY PRN PO ANXIETY / AGITATION; Start 03/08/19 at 09:00 Bupropion HCl (Wellbutrin Sr) 150 mg QHS PO Last administered on 03/08/19 20: 25; Start 03/07/19 at 23:00 Ceftriaxone Sodium (Rocephin) 1 gm Q24H IVP Last administered on 03/08/19 17: 23; Start 03/08/19 at 17:00 Lactobacillus Rhamnosus (Culturelle) 1 cap BID PO Last administered on 09:33; Start 03/08/19 at 21:00 Active Scripts Active Reported Doxycycline Hyclate 100 Mg Tablet 1 Tab PO BID Proair Hfa (Albuterol Sulfate) 8.5 Gm Hfa.aer.ad 2 Puff IN PRN Q4HRS PRN Furosemide 20 Mg Tablet 1 Tab PO DAILY Klor-Con 10 (Potassium Chloride) 10 Meq Tablet.er 1 Tab PO DAILY Cardizem Cd (Diltiazem Hcl) 240 Mg Cap.er.24h 1 Cap PO DAILY Amiodarone Hcl 200 Mg Tablet 1 Tab PO DAILY Vitamin And Minerals (Multivitamins,Ther W-Minerals) 1 Each Tablet 1 Each PO DAILY Vitamin B-12 (Cyanocobalamin (Vitamin B-12)) 1,000 Mcg Tablet 2,500 Mcg PO DAILY Metoprolol Tartrate 25 Mg Tablet 25 Mg PO BID Xarelto (Rivaroxaban) 20 Mg Tablet 20 Mg PO DAILY Xanax (Alprazolam) 0.25 Mg Tablet 0.25 Mg PO BID 2 tabs in the am, 1 tab at night Crestor (Rosuvastatin Calcium) 40 Mg Tablet 40 Mg PO DAILY Nexium Capsule (Esomeprazole Magnesium) 40 Mg Capsule.dr 40 Mg PO Wellbutrin Sr (Bupropion Hcl) 150 Mg Tablet.er 150 Mg PO BID 2 tabs in the am, 1 tab at hs Vitals/I & O Vital Sign - Last 24 Hours 03/08/19 03/08/19 03/08/19 03/08/19 11:00 11:34 14:54 15:00 Temp 98.7 97.6 98.7 97.6 Pulse 71 67 Resp 18 18 B/P (MAP) 117/69 (85) 116/57 (76) Pulse Ox 100 97 O2 Delivery Room Air Room Air Room Air Room Air 03/08/19 03/08/19 03/08/19 03/08/19 15:54 16:07 19:00 19:54 Temp 97.4 97.4 Pulse 66 Resp 18 B/P (MAP) 118/70 (86) Pulse Ox 95 96 O2 Delivery Room Air Room Air Room Air Room Air 03/08/19 03/08/19 03/08/19 03/09/19 20:00 20:26 23:00 03:00 Temp 97.4 97.4 Pulse 67 71 68 Resp 18 18 B/P (MAP) 116/57 114/69 (84) 117/63 (81) Pulse Ox 96 96 O2 Delivery Room Air Room Air Room Air 03/09/19 03/09/19 03/09/19 03/09/19 06:12 07:30 08:00 09:31 Temp 97.7 97.7 Pulse 61 61 Resp 20 B/P (MAP) 117/69 (85) 117/69 Pulse Ox 96 95 O2 Delivery Room Air Room Air Room Air 03/09/19 03/09/19 09:34 09:35 Pulse 61 61 B/P (MAP) 117/69 117/69 Intake and Output 03/08/19 03/08/19 03/09/19 14:59 22:59 06:59 Output Total 500 ml 0 ml Balance -500 ml 0 ml YANCY VALDERRAMA MD Mar 09, 2019 10:25
[2019-03-09 11:00] VITALS: BP 134/75
[2019-03-09] MEDS ORDERED: POTASSIUM CHLORIDE 20 MEQ TABLET.ER. PO ONE (11:00)
--- NOTE | 2019-03-09 11:49 | CARD ---
MR#: [id number] Date of Study: 03/09/2019 Ordering Physician: SHERICE GONZALES, Referring Physician: JOHANNA ALEXANDER Tech: Marilee Case BELLA APPROVED REPORT EXAM: Two-dimensional and M-mode echocardiogram with Doppler and color Doppler. Other Information Quality : AverageHR: 64bpm Rhythm : NSRTechnically limited study due to body habitus and history of smoking. INDICATION Chest Pain 2D DIMENSIONS RVDd3.5 (2.9-3.5cm)Left Atrium(2D)4.1 (1.6-4.0cm) IVSd1.3 (0.7-1.1cm)Aortic Root(2D)3.8 (2.0-3.7cm) LVDd6.2 (3.9-5.9cm)LVOT Diameter2.3 (1.8-2.4cm) PWd1.4 (0.7-1.1cm)IVSs1.4 (0.8-1.2cm) LVDs4.7 (2.5-4.0cm)FS (%) 20.6 % PWs1.8 (0.8-1.2cm)SV78.6 ml LVEF(%)45.0 (>50%) M-Mode DIMENSIONS Left Atrium(MM)4.05 (2.5-4.0cm)IVSd1.27 (0.7-1.1cm) Aortic Root4.10 (2.2-3.7cm)LVDd6.50 (4.0-5.6cm) PWd1.35 (0.7-1.1cm)FS (%) 27 % LVDs4.73 (2.0-3.8cm)LVEF(%)52 (>50%) Aortic Valve AoV Peak Etienne.134.8cm/sAoV VTI24.4cm AO Peak GR.7.3mmHgLVOT Peak Etienne.98.4cm/s LVOT VTI 20.96cmAO Mean GR.4mmHg TALISHA (VMAX)2.81ns3TMT (VTI)3.67cm2 Mitral Valve MV E Pqabginj31.2cm/sMV DECEL [id number] MV A Iqtrmtnd27.6cm/sMV JHI68mu E/A Ratio1.1MVA (PHT)3.77cm2 TDI E/Lateral E'6.1 Pulmonary Valve PV Peak Teemtqwt16.3cm/sPV Peak Grad.4mmHg Pulmonary Vein S1 Ggzopwca57.4cm/sD2 Ymvqnnze34.5cm/s LEFT VENTRICLE The Left Ventricle is mildly dilated. There is mild to moderate concentric left ventricular hypertrop hy. Left ventricle systolic function is low normal. The Ejection Fraction is 45-50%. Mild global hypo kinesis. Transmitral Doppler flow pattern is Grade II-pseudonormal filling dynamics. RIGHT VENTRICLE The right ventricle is normal size. There is normal right ventricular wall thickness. The right ventr icular systolic function is normal. ATRIA The left atrium is mildly dilated. The right atrium size is normal. The interatrial septum is intact with no evidence for an atrial septal defect or patent foramen ovale as noted on 2-D or Doppler imagi ng. AORTIC VALVE The aortic valve is normal in structure and function. The aortic valve is trileaflet. Doppler and Col or Flow revealed no significant aortic regurgitation. There is no significant aortic valvular stenosi s. There is no aortic valvular vegetation. MITRAL VALVE The mitral valve is normal in structure and function. There is no evidence of mitral valve prolapse. There is no mitral valve stenosis. Doppler and Color-flow revealed trace to mild mitral regurgitation . TRICUSPID VALVE The tricuspid valve is normal in structure and function. Doppler and Color Flow revealed no tricuspid valve regurgitation noted. There is no tricuspid valve prolapse or vegetation. There is no tricuspid valve stenosis. PULMONIC VALVE The pulmonic valve is not well visualized. GREAT VESSELS The aortic root is mildly enlarged. The ascending aorta is Mildly dilated. The IVC is normal in size and collapses >50% with inspiration. PERICARDIAL EFFUSION There is no evidence of significant pericardial effusion. Critical Notification Critical Value: No <Conclusion> Left ventricle systolic function is low normal. The Ejection Fraction is 45-50%. Mild global hypokinesis. Signed by : Wei Nava, Electronically Approved : 03/09/2019 11:49:20
--- NOTE | 2019-03-09 12:11 | PDOC ---
PULMONARY PROGRESS NOTES Subjective sob better, has cough, sputum, has nasal congestion Vitals Vital Signs Date Time Temp Pulse Resp B/P (MAP) Pulse Ox O2 Delivery O2 Flow Rate FiO2 03/09/19 11:42 95 Room Air 03/09/19 11:00 97.9 78 20 134/75 (94) 97.9 ROS: No Nausea General: Alert, No acute distress HEENT: Other (nc at perrl nose throat clear) Lungs: Crackles Cardiovascular: S1, S2 Abdomen: Soft, Non-tender Neuro Exam: Alert Extremities: Other Skin: Warm Labs Laboratory Tests Test 03/07/19 15:20 03/07/19 21:00 03/08/19 05:35 03/09/19 03:00 White Blood Count 9.5 x10^3/uL (4.0-11.0) 10.2 x10^3/uL (4.0-11.0) Red Blood Count 4.83 x10^6/uL (4.30-5.70) 4.18 x10^6/uL (4.30-5.70) Hemoglobin 15.8 g/dL (13.0-17.5) 13.7 g/dL (13.0-17.5) Hematocrit 46.9 % (39.0-53.0) 40.8 % (39.0-53.0) Mean Corpuscular Volume 97 fL (79-100) 97 fL (79-100) Mean Corpuscular Hemoglobin 33 pg (25-35) 33 pg (25-35) Mean Corpuscular Hemoglobin Concent 34 g/dL (31-37) 34 g/dL (31-37) Red Cell Distribution Width 12.6 % (11.5-14.5) 12.7 % (11.5-14.5) Platelet Count 274 x10^3/uL (140-400) 246 x10^3/uL (140-400) Neutrophils (%) (Auto) 68 % (31-73) 77 % (31-73) Lymphocytes (%) (Auto) 22 % (24-48) 15 % (24-48) Monocytes (%) (Auto) 9 % (0-9) 8 % (0-9) Eosinophils (%) (Auto) 0 % (0-3) 0 % (0-3) Basophils (%) (Auto) 1 % (0-3) 0 % (0-3) Neutrophils # (Auto) 6.5 x10^3uL (1.8-7.7) 7.9 x10^3uL (1.8-7.7) Lymphocytes # (Auto) 2.1 x10^3/uL (1.0-4.8) 1.5 x10^3/uL (1.0-4.8) Monocytes # (Auto) 0.8 x10^3/uL (0.0-1.1) 0.8 x10^3/uL (0.0-1.1) Eosinophils # (Auto) 0.0 x10^3/uL (0.0-0.7) 0.0 x10^3/uL (0.0-0.7) Basophils # (Auto) 0.1 x10^3/uL (0.0-0.2) 0.0 x10^3/uL (0.0-0.2) D-Dimer (Chata) < 0.27 ug/mlFEU Sodium Level 141 mmol/L (136-145) 138 mmol/L (136-145) 142 mmol/L (136-145) Potassium Level 4.2 mmol/L (3.5-5.1) 3.3 mmol/L (3.5-5.1) 3.1 mmol/L (3.5-5.1) Chloride Level 102 mmol/L (98-107) 99 mmol/L (98-107) 104 mmol/L (98-107) Carbon Dioxide Level 23 mmol/L (21-32) 23 mmol/L (21-32) 27 mmol/L (21-32) Anion Gap 16 (6-14) 16 (6-14) 11 (6-14) Blood Urea Nitrogen 27 mg/dL (8-26) 31 mg/dL (8-26) 22 mg/dL (8-26) Creatinine 1.4 mg/dL (0.7-1.3) 1.0 mg/dL (0.7-1.3) 1.1 mg/dL (0.7-1.3) Estimated GFR (Cockcroft-Gault) 51.7 76.2 68.3 BUN/Creatinine Ratio 19 (6-20) Glucose Level 133 mg/dL (70-99) 143 mg/dL (70-99) 109 mg/dL (70-99) Lactic Acid Level 2.1 mmol/L (0.4-2.0) 1.3 mmol/L (0.4-2.0) Calcium Level 9.4 mg/dL (8.5-10.1) 9.2 mg/dL (8.5-10.1) 9.1 mg/dL (8.5-10.1) Total Bilirubin 0.8 mg/dL (0.2-1.0) Aspartate Amino Transf (AST/SGOT) 66 U/L (15-37) Alanine Aminotransferase (ALT/SGPT) 140 U/L (16-63) Alkaline Phosphatase 100 U/L (46-116) Creatine Kinase 95 U/L (39-308) Troponin I Quantitative < 0.017 ng/mL (0.000-0.055) < 0.017 ng/mL (0.000-0.055) QU-Ugt-O-Type Natriuretic Peptide 1106 pg/mL (0-124) Total Protein 7.9 g/dL (6.4-8.2) Albumin 4.0 g/dL (3.4-5.0) Albumin/Globulin Ratio 1.0 (1.0-1.7) Urine Collection Type Unknown Urine Color Iliana Urine Clarity Clear Urine pH 6.0 Urine Specific Mcfarland >=1.030 Urine Protein Negative mg/dL (NEG-TRACE) Urine Glucose (UA) Negative mg/dL (NEG) Urine Ketones (Stick) 15 mg/dL (NEG) Urine Blood Negative (NEG) Urine Nitrite Negative (NEG) Urine Bilirubin Small (NEG) Urine Urobilinogen Dipstick 2.0 mg/dL (0.2 mg/dL) Urine Leukocyte Esterase Negative (NEG) Urine RBC Occ /HPF (0-2) Urine WBC 0 /HPF (0-4) Urine Squamous Epithelial Cells Few /LPF Urine Bacteria 0 /HPF (0-FEW) Urine Mucus Marked /LPF Magnesium Level 2.2 mg/dL (1.8-2.4) Laboratory Tests Test 03/09/19 03:00 White Blood Count 10.2 x10^3/uL (4.0-11.0) Red Blood Count 4.18 x10^6/uL (4.30-5.70) Hemoglobin 13.7 g/dL (13.0-17.5) Hematocrit 40.8 % (39.0-53.0) Mean Corpuscular Volume 97 fL (79-100) Mean Corpuscular Hemoglobin 33 pg (25-35) Mean Corpuscular Hemoglobin Concent 34 g/dL (31-37) Red Cell Distribution Width 12.7 % (11.5-14.5) Platelet Count 246 x10^3/uL (140-400) Neutrophils (%) (Auto) 77 % (31-73) Lymphocytes (%) (Auto) 15 % (24-48) Monocytes (%) (Auto) 8 % (0-9) Eosinophils (%) (Auto) 0 % (0-3) Basophils (%) (Auto) 0 % (0-3) Neutrophils # (Auto) 7.9 x10^3uL (1.8-7.7) Lymphocytes # (Auto) 1.5 x10^3/uL (1.0-4.8) Monocytes # (Auto) 0.8 x10^3/uL (0.0-1.1) Eosinophils # (Auto) 0.0 x10^3/uL (0.0-0.7) Basophils # (Auto) 0.0 x10^3/uL (0.0-0.2) Sodium Level 142 mmol/L (136-145) Potassium Level 3.1 mmol/L (3.5-5.1) Chloride Level 104 mmol/L (98-107) Carbon Dioxide Level 27 mmol/L (21-32) Anion Gap 11 (6-14) Blood Urea Nitrogen 22 mg/dL (8-26) Creatinine 1.1 mg/dL (0.7-1.3) Estimated GFR (Cockcroft-Gault) 68.3 Glucose Level 109 mg/dL (70-99) Calcium Level 9.1 mg/dL (8.5-10.1) Magnesium Level 2.2 mg/dL (1.8-2.4) Troponin I Quantitative < 0.017 ng/mL (0.000-0.055) Medications Active Scripts Medications Dose Route/Sig Max Daily Dose Days Date Category Dose Instructions Doxycycline Hyclate 100 Mg Tablet 1 Tab PO BID 03/07/19 Reported Proair Hfa (Albuterol Sulfate) 8.5 Gm Hfa.aer.ad 2 Puff IN PRN Q4HRS PRN 03/07/19 Reported Furosemide 20 Mg Tablet 1 Tab PO DAILY 03/07/19 Reported Klor-Con 10 (Potassium Chloride) 10 Meq Tablet.er 1 Tab PO DAILY 03/07/19 Reported Cardizem Cd (Diltiazem Hcl) 240 Mg Cap.er.24h 1 Cap PO DAILY 05/10/17 Reported Amiodarone Hcl 200 Mg Tablet 1 Tab PO DAILY 05/10/17 Reported Vitamin And Minerals (Multivitamins,Ther W-Minerals) 1 Each Tablet 1 Each PO DAILY 07/06/14 Reported Vitamin B-12 (Cyanocobalamin (Vitamin B-12)) 1,000 Mcg Tablet 2,500 Mcg PO DAILY 07/06/14 Reported Metoprolol Tartrate 25 Mg Tablet 25 Mg PO BID 06/01/14 Reported Xarelto (Rivaroxaban) 20 Mg Tablet 20 Mg PO DAILY 06/01/14 Reported Xanax (Alprazolam) 0.25 Mg Tablet 0.25 Mg PO BID 05/30/14 Reported 2 tabs in the am, 1 tab at night Crestor (Rosuvastatin Calcium) 40 Mg Tablet 40 Mg PO DAILY 03/29/14 Reported Nexium Capsule (Esomeprazole Magnesium) 40 Mg Capsule.dr 40 Mg PO 03/29/14 Reported Wellbutrin Sr (Bupropion Hcl) 150 Mg Tablet.er 150 Mg PO BID 03/29/14 Reported 2 tabs in the am, 1 tab at hs Impression . IMPRESSION: 1. Dyspnea secondary to acute exacerbation of chronic obstructive pulmonary disease in a patient who smoked for 40 years. 2. Acute bronchitis with no definite consolidation seen on the chest x-ray. 3. Underlying morbid obesity. 4. allergic rhinitis Plan . RECOMMENDATIONS: 1. Continue with present bronchodilators. 2. Continue with present antibiotics. 3. Weight loss was strongly emphasized. i do recommend sleep study as out pt 4. The patient may benefit from sleep study as an outpatient. 5. Xarelto per PCP. 6. add flonase. discussed w pt KELLY SAWANT MD Mar 09, 2019 12:11
[2019-03-09] MEDS: FLUTICASONE 50MCG/NASAL SPRAY 16GM BOTTLE. NS SCH (13:43)
[2019-03-09] MEDS ORDERED: ALBUTEROL SULFATE 2.5 MG/3 ML NEBU. INH PRN (14:32)
[2019-03-09] MEDS ORDERED: ALBUTEROL SULFATE 2.5 MG/3 ML NEBU. NEB PRN (14:33)
[2019-03-09 15:00] VITALS: BP 118/72
[2019-03-09] MEDS: cefTRIAXone IV Push 1 GM VIAL. IVP SCH (17:56)
[2019-03-09 19:05] VITALS: BP 122/68
[2019-03-09] MEDS: ALPRAZolam 0.25 MG TABLET PO SCH (21:09)
[2019-03-09] MEDS: ATORVASTATIN CALCIUM 40 MG TABLET. PO SCH (21:10)
[2019-03-09 23:05] VITALS: BP 147/70
[2019-03-10 03:05] VITALS: BP 113/64
[2019-03-10 04:32] LABS: BASO % 1 % (0-3); EOS # 0.1 x10^3/uL (0.0-0.7); EOS % 1 % (0-3); HEMATOCRIT 39.7 % (39.0-53.0); HEMOGLOBIN 13.3 g/dL (13.0-17.5); LYMPH # 1.4 x10^3/uL (1.0-4.8); LYMPH % 21 % (24-48); MEAN CORPUSCULAR HEMOGLOBIN 33 pg (25-35); MEAN CORPUSCULAR HGB CONC 34 g/dL (31-37); MEAN CORPUSCULAR VOLUME 98 fL (79-100); MONO # 0.7 x10^3/uL (0.0-1.1); MONO % 10 % (0-9); NEUT # 4.6 x10^3uL (1.8-7.7); NEUT % 67 % (31-73); PLATELET COUNT 242 x10^3/uL (140-400); RED BLOOD COUNT 4.07 x10^6/uL (4.30-5.70); RED CELL DISTRIBUTION WIDTH 12.4 % (11.5-14.5); WHITE BLOOD COUNT 6.8 x10^3/uL (4.0-11.0)
[2019-03-10 04:44] LABS: CALCIUM 9.4 mg/dL (8.5-10.1); GFR 76.2; POTASSIUM 3.7 mmol/L (3.5-5.1)
[2019-03-10] MEDS: IPRATRPIUM/ALBUTEROL 0.5/2.5MG 3 ML NEBU. NEB SCH ×2 (06:14→12:22)
--- NOTE | 2019-03-10 07:02 | PDOC ---
PULMONARY PROGRESS NOTES Subjective sob better, cough, sputum, nasal congestion better Vitals Vital Signs Date Time Temp Pulse Resp B/P (MAP) Pulse Ox O2 Delivery O2 Flow Rate FiO2 03/10/19 06:14 Room Air 03/10/19 03:05 98.0 64 16 113/64 (80) 94 98.0 ROS: No Nausea General: Alert, No acute distress HEENT: Other (nc at perrl nose throat clear) Lungs: Crackles Cardiovascular: S1, S2 Abdomen: Soft, Non-tender Neuro Exam: Alert Extremities: Other Skin: Warm Labs Laboratory Tests Test 03/09/19 03:00 03/10/19 03:55 White Blood Count 10.2 x10^3/uL (4.0-11.0) 6.8 x10^3/uL (4.0-11.0) Red Blood Count 4.18 x10^6/uL (4.30-5.70) 4.07 x10^6/uL (4.30-5.70) Hemoglobin 13.7 g/dL (13.0-17.5) 13.3 g/dL (13.0-17.5) Hematocrit 40.8 % (39.0-53.0) 39.7 % (39.0-53.0) Mean Corpuscular Volume 97 fL (79-100) 98 fL (79-100) Mean Corpuscular Hemoglobin 33 pg (25-35) 33 pg (25-35) Mean Corpuscular Hemoglobin Concent 34 g/dL (31-37) 34 g/dL (31-37) Red Cell Distribution Width 12.7 % (11.5-14.5) 12.4 % (11.5-14.5) Platelet Count 246 x10^3/uL (140-400) 242 x10^3/uL (140-400) Neutrophils (%) (Auto) 77 % (31-73) 67 % (31-73) Lymphocytes (%) (Auto) 15 % (24-48) 21 % (24-48) Monocytes (%) (Auto) 8 % (0-9) 10 % (0-9) Eosinophils (%) (Auto) 0 % (0-3) 1 % (0-3) Basophils (%) (Auto) 0 % (0-3) 1 % (0-3) Neutrophils # (Auto) 7.9 x10^3uL (1.8-7.7) 4.6 x10^3uL (1.8-7.7) Lymphocytes # (Auto) 1.5 x10^3/uL (1.0-4.8) 1.4 x10^3/uL (1.0-4.8) Monocytes # (Auto) 0.8 x10^3/uL (0.0-1.1) 0.7 x10^3/uL (0.0-1.1) Eosinophils # (Auto) 0.0 x10^3/uL (0.0-0.7) 0.1 x10^3/uL (0.0-0.7) Basophils # (Auto) 0.0 x10^3/uL (0.0-0.2) 0.0 x10^3/uL (0.0-0.2) Sodium Level 142 mmol/L (136-145) 139 mmol/L (136-145) Potassium Level 3.1 mmol/L (3.5-5.1) 3.7 mmol/L (3.5-5.1) Chloride Level 104 mmol/L (98-107) 103 mmol/L (98-107) Carbon Dioxide Level 27 mmol/L (21-32) 27 mmol/L (21-32) Anion Gap 11 (6-14) 9 (6-14) Blood Urea Nitrogen 22 mg/dL (8-26) 16 mg/dL (8-26) Creatinine 1.1 mg/dL (0.7-1.3) 1.0 mg/dL (0.7-1.3) Estimated GFR (Cockcroft-Gault) 68.3 76.2 Glucose Level 109 mg/dL (70-99) 99 mg/dL (70-99) Calcium Level 9.1 mg/dL (8.5-10.1) 9.4 mg/dL (8.5-10.1) Magnesium Level 2.2 mg/dL (1.8-2.4) Troponin I Quantitative < 0.017 ng/mL (0.000-0.055) Laboratory Tests Test 03/10/19 03:55 White Blood Count 6.8 x10^3/uL (4.0-11.0) Red Blood Count 4.07 x10^6/uL (4.30-5.70) Hemoglobin 13.3 g/dL (13.0-17.5) Hematocrit 39.7 % (39.0-53.0) Mean Corpuscular Volume 98 fL (79-100) Mean Corpuscular Hemoglobin 33 pg (25-35) Mean Corpuscular Hemoglobin Concent 34 g/dL (31-37) Red Cell Distribution Width 12.4 % (11.5-14.5) Platelet Count 242 x10^3/uL (140-400) Neutrophils (%) (Auto) 67 % (31-73) Lymphocytes (%) (Auto) 21 % (24-48) Monocytes (%) (Auto) 10 % (0-9) Eosinophils (%) (Auto) 1 % (0-3) Basophils (%) (Auto) 1 % (0-3) Neutrophils # (Auto) 4.6 x10^3uL (1.8-7.7) Lymphocytes # (Auto) 1.4 x10^3/uL (1.0-4.8) Monocytes # (Auto) 0.7 x10^3/uL (0.0-1.1) Eosinophils # (Auto) 0.1 x10^3/uL (0.0-0.7) Basophils # (Auto) 0.0 x10^3/uL (0.0-0.2) Sodium Level 139 mmol/L (136-145) Potassium Level 3.7 mmol/L (3.5-5.1) Chloride Level 103 mmol/L (98-107) Carbon Dioxide Level 27 mmol/L (21-32) Anion Gap 9 (6-14) Blood Urea Nitrogen 16 mg/dL (8-26) Creatinine 1.0 mg/dL (0.7-1.3) Estimated GFR (Cockcroft-Gault) 76.2 Glucose Level 99 mg/dL (70-99) Calcium Level 9.4 mg/dL (8.5-10.1) Medications Active Scripts Medications Dose Route/Sig Max Daily Dose Days Date Category Dose Instructions Doxycycline Hyclate 100 Mg Tablet 1 Tab PO BID 03/07/19 Reported Proair Hfa (Albuterol Sulfate) 8.5 Gm Hfa.aer.ad 2 Puff IN PRN Q4HRS PRN 03/07/19 Reported Furosemide 20 Mg Tablet 1 Tab PO DAILY 03/07/19 Reported Klor-Con 10 (Potassium Chloride) 10 Meq Tablet.er 1 Tab PO DAILY 03/07/19 Reported Cardizem Cd (Diltiazem Hcl) 240 Mg Cap.er.24h 1 Cap PO DAILY 05/10/17 Reported Amiodarone Hcl 200 Mg Tablet 1 Tab PO DAILY 05/10/17 Reported Vitamin And Minerals (Multivitamins,Ther W-Minerals) 1 Each Tablet 1 Each PO DAILY 07/06/14 Reported Vitamin B-12 (Cyanocobalamin (Vitamin B-12)) 1,000 Mcg Tablet 2,500 Mcg PO DAILY 07/06/14 Reported Metoprolol Tartrate 25 Mg Tablet 25 Mg PO BID 06/01/14 Reported Xarelto (Rivaroxaban) 20 Mg Tablet 20 Mg PO DAILY 06/01/14 Reported Xanax (Alprazolam) 0.25 Mg Tablet 0.25 Mg PO BID 05/30/14 Reported 2 tabs in the am, 1 tab at night Crestor (Rosuvastatin Calcium) 40 Mg Tablet 40 Mg PO DAILY 03/29/14 Reported Nexium Capsule (Esomeprazole Magnesium) 40 Mg Capsule.dr 40 Mg PO 03/29/14 Reported Wellbutrin Sr (Bupropion Hcl) 150 Mg Tablet.er 150 Mg PO BID 03/29/14 Reported 2 tabs in the am, 1 tab at hs Impression . IMPRESSION: 1. Dyspnea secondary to acute exacerbation of chronic obstructive pulmonary disease in a patient who smoked for 40 years. 2. Acute bronchitis with no definite consolidation seen on the chest x-ray. 3. Underlying morbid obesity. 4. allergic rhinitis Plan . RECOMMENDATIONS: 1. Continue with present bronchodilators. he would need advair or symbicort bid and albuterol prn when he goes home 2. antibiotics, may change to po augmentin, total abx for 7 days. 3. Weight loss was strongly emphasized. 4. i do recommend sleep study as out pt 5. Xarelto per PCP. 6. cont flonase. 7. increase activity discussed w pt KELLY SAWANT MD Mar 10, 2019 07:02
[2019-03-10 07:30] VITALS: BP 112/75
[2019-03-10] MEDS: LACTOBACILLUS RHAMNOSUS GG 1 CAPSULE. PO SCH (09:36)
[2019-03-10] MEDS: FLUTICASONE 50MCG/NASAL SPRAY 16GM BOTTLE. NS SCH (09:36)
[2019-03-10] MEDS: RIVAROXABAN 10 MG TABLET. PO SCH (09:37)
[2019-03-10] MEDS: PANTOPRAZOLE 40 MG TABLET.DR. PO SCH (09:38)
[2019-03-10] MEDS: POTASSIUM CHLORIDE 10 MEQ TABLET.ER. PO SCH (09:38)
[2019-03-10] MEDS: METOPROLOL TART IMMED RELEASE 25 MG TABLET. PO SCH (09:38)
[2019-03-10] MEDS: MULTIVITAMIN with MINERAL TABLET. PO SCH (09:38)
[2019-03-10] MEDS: AMIODARONE HCL 200 MG TABLET. PO SCH (09:39)
[2019-03-10] MEDS: CYANOCOBALAMIN (VITAMIN B-12) 1,000 MCG TABLET. PO SCH (09:40)
[2019-03-10] MEDS: FUROSEMIDE 20 MG TABLET PO SCH (09:40)
[2019-03-10] MEDS: buPROPion SR 150 MG TABLET.SA PO SCH (09:41)
--- NOTE | 2019-03-10 10:19 | PDOC ---
PROGRESS NOTES Chief Complaint Chief Complaint . Patient complaining of shortness of breath intermittently for the last 5 days that getting more constant 03/07. Patient complaining of productive cough with yellow sputum and exertional dizziness and generalized weakness. Patient complaining of episodes of chest pain is substernal and left side of his chest as a sharp pain and rated his pain 9/10. Patient was seen at urgent care 5 days ago and had Medrol Dosepak History of Present Illness History of Present Illness Assessment/Plan COPD exacerbation, acute slow to improve 40 pk yr hx Acute bronchitis-no consolidation or chest x-ray Ex-smoker, smoked for 40 years Hypertension, chronic low back go, anxiety NOS-chronic stable Hypoxic RF with normal d dimer CHEST PAIN , NL CATH 04/2017 Plan: [facility], [place] cough medicine, pulmo consult, continue current rx home meds CARD CONSULT RE-EVAL RISK CAD TELE refer to EP on an outpatient basis xarelto for stroke prevention 20mg po daily needs out pt sleep study soon FULL CODE Vitals Vitals Vital Signs Date Time Temp Pulse Resp B/P (MAP) Pulse Ox O2 Delivery O2 Flow Rate FiO2 03/10/19 09:39 62 112/75 03/10/19 07:30 98.0 18 94 Room Air 98.0 Physical Exam General: Alert, Oriented X3, Cooperative, No acute distress, mild distress Heart: Regular rate, Normal S1, Normal S2, Other (irr) Lungs: Crackles Abdomen: Soft, No tenderness Extremities: No edema, Normal pulses Skin: No significant lesion Labs LABS Laboratory Tests Test 03/10/19 03:55 White Blood Count 6.8 x10^3/uL (4.0-11.0) Red Blood Count 4.07 x10^6/uL (4.30-5.70) Hemoglobin 13.3 g/dL (13.0-17.5) Hematocrit 39.7 % (39.0-53.0) Mean Corpuscular Volume 98 fL (79-100) Mean Corpuscular Hemoglobin 33 pg (25-35) Mean Corpuscular Hemoglobin Concent 34 g/dL (31-37) Red Cell Distribution Width 12.4 % (11.5-14.5) Platelet Count 242 x10^3/uL (140-400) Neutrophils (%) (Auto) 67 % (31-73) Lymphocytes (%) (Auto) 21 % (24-48) Monocytes (%) (Auto) 10 % (0-9) Eosinophils (%) (Auto) 1 % (0-3) Basophils (%) (Auto) 1 % (0-3) Neutrophils # (Auto) 4.6 x10^3uL (1.8-7.7) Lymphocytes # (Auto) 1.4 x10^3/uL (1.0-4.8) Monocytes # (Auto) 0.7 x10^3/uL (0.0-1.1) Eosinophils # (Auto) 0.1 x10^3/uL (0.0-0.7) Basophils # (Auto) 0.0 x10^3/uL (0.0-0.2) Sodium Level 139 mmol/L (136-145) Potassium Level 3.7 mmol/L (3.5-5.1) Chloride Level 103 mmol/L (98-107) Carbon Dioxide Level 27 mmol/L (21-32) Anion Gap 9 (6-14) Blood Urea Nitrogen 16 mg/dL (8-26) Creatinine 1.0 mg/dL (0.7-1.3) Estimated GFR (Cockcroft-Gault) 76.2 Glucose Level 99 mg/dL (70-99) Calcium Level 9.4 mg/dL (8.5-10.1) Assessment and Plan Assessmemt and Plan Problems Medical Problems: (1) Afib Status: Acute (2) Anxiety Status: Acute (3) COPD exacerbation Status: Acute (4) Non-cardiac chest pain Status: Acute Comment Review of Relevant I have reviewed the following items rafael (where applicable) has been applied. Labs Laboratory Tests Test 03/09/19 03:00 03/10/19 03:55 White Blood Count 10.2 x10^3/uL (4.0-11.0) 6.8 x10^3/uL (4.0-11.0) Red Blood Count 4.18 x10^6/uL (4.30-5.70) 4.07 x10^6/uL (4.30-5.70) Hemoglobin 13.7 g/dL (13.0-17.5) 13.3 g/dL (13.0-17.5) Hematocrit 40.8 % (39.0-53.0) 39.7 % (39.0-53.0) Mean Corpuscular Volume 97 fL (79-100) 98 fL (79-100) Mean Corpuscular Hemoglobin 33 pg (25-35) 33 pg (25-35) Mean Corpuscular Hemoglobin Concent 34 g/dL (31-37) 34 g/dL (31-37) Red Cell Distribution Width 12.7 % (11.5-14.5) 12.4 % (11.5-14.5) Platelet Count 246 x10^3/uL (140-400) 242 x10^3/uL (140-400) Neutrophils (%) (Auto) 77 % (31-73) 67 % (31-73) Lymphocytes (%) (Auto) 15 % (24-48) 21 % (24-48) Monocytes (%) (Auto) 8 % (0-9) 10 % (0-9) Eosinophils (%) (Auto) 0 % (0-3) 1 % (0-3) Basophils (%) (Auto) 0 % (0-3) 1 % (0-3) Neutrophils # (Auto) 7.9 x10^3uL (1.8-7.7) 4.6 x10^3uL (1.8-7.7) Lymphocytes # (Auto) 1.5 x10^3/uL (1.0-4.8) 1.4 x10^3/uL (1.0-4.8) Monocytes # (Auto) 0.8 x10^3/uL (0.0-1.1) 0.7 x10^3/uL (0.0-1.1) Eosinophils # (Auto) 0.0 x10^3/uL (0.0-0.7) 0.1 x10^3/uL (0.0-0.7) Basophils # (Auto) 0.0 x10^3/uL (0.0-0.2) 0.0 x10^3/uL (0.0-0.2) Sodium Level 142 mmol/L (136-145) 139 mmol/L (136-145) Potassium Level 3.1 mmol/L (3.5-5.1) 3.7 mmol/L (3.5-5.1) Chloride Level 104 mmol/L (98-107) 103 mmol/L (98-107) Carbon Dioxide Level 27 mmol/L (21-32) 27 mmol/L (21-32) Anion Gap 11 (6-14) 9 (6-14) Blood Urea Nitrogen 22 mg/dL (8-26) 16 mg/dL (8-26) Creatinine 1.1 mg/dL (0.7-1.3) 1.0 mg/dL (0.7-1.3) Estimated GFR (Cockcroft-Gault) 68.3 76.2 Glucose Level 109 mg/dL (70-99) 99 mg/dL (70-99) Calcium Level 9.1 mg/dL (8.5-10.1) 9.4 mg/dL (8.5-10.1) Magnesium Level 2.2 mg/dL (1.8-2.4) Troponin I Quantitative < 0.017 ng/mL (0.000-0.055) Laboratory Tests Test 03/10/19 03:55 White Blood Count 6.8 x10^3/uL (4.0-11.0) Red Blood Count 4.07 x10^6/uL (4.30-5.70) Hemoglobin 13.3 g/dL (13.0-17.5) Hematocrit 39.7 % (39.0-53.0) Mean Corpuscular Volume 98 fL (79-100) Mean Corpuscular Hemoglobin 33 pg (25-35) Mean Corpuscular Hemoglobin Concent 34 g/dL (31-37) Red Cell Distribution Width 12.4 % (11.5-14.5) Platelet Count 242 x10^3/uL (140-400) Neutrophils (%) (Auto) 67 % (31-73) Lymphocytes (%) (Auto) 21 % (24-48) Monocytes (%) (Auto) 10 % (0-9) Eosinophils (%) (Auto) 1 % (0-3) Basophils (%) (Auto) 1 % (0-3) Neutrophils # (Auto) 4.6 x10^3uL (1.8-7.7) Lymphocytes # (Auto) 1.4 x10^3/uL (1.0-4.8) Monocytes # (Auto) 0.7 x10^3/uL (0.0-1.1) Eosinophils # (Auto) 0.1 x10^3/uL (0.0-0.7) Basophils # (Auto) 0.0 x10^3/uL (0.0-0.2) Sodium Level 139 mmol/L (136-145) Potassium Level 3.7 mmol/L (3.5-5.1) Chloride Level 103 mmol/L (98-107) Carbon Dioxide Level 27 mmol/L (21-32) Anion Gap 9 (6-14) Blood Urea Nitrogen 16 mg/dL (8-26) Creatinine 1.0 mg/dL (0.7-1.3) Estimated GFR (Cockcroft-Gault) 76.2 Glucose Level 99 mg/dL (70-99) Calcium Level 9.4 mg/dL (8.5-10.1) Microbiology 03/07/19 Blood Culture - Preliminary, Resulted NO GROWTH AFTER 2 DAYS Medications Current Medications Albuterol/ Ipratropium (Duoneb) 3 ml 1X ONCE NEB Last administered on at 15:13; Start 03/07/19 at 15:00; Stop 03/07/19 at 15:05; Status DC Methylprednisolone Sodium Succinate (SOLU-Medrol 125MG VIAL) 125 mg 1X ONCE IV Last administered on 03/07/19at 15:27; Start 03/07/19 at 15:00; Stop 03/07/19 at 15:05; Status DC Fentanyl Citrate (Fentanyl 2ml Vial) 50 mcg 1X ONCE IV Last administered on 03/07/19at 16:08; Start 03/07/19 at 16:15; Stop 03/07/19 at 16:16; Status DC Ceftriaxone Sodium (Rocephin) 1 gm 1X ONCE IVP Last administered on 03/07/19at 17:27; Start 03/07/19 at 16:45; Stop 03/07/19 at 16:46; Status DC Albuterol/ Ipratropium (Duoneb) 3 ml RTQID NEB Last administered on 03/10/19at 06:14; Start 03/07/19 at 20:00 Guaifenesin (Robitussin Dm) 10 ml PRN Q6HRS PRN PO COUGH Last administered on at 09:38; Start 03/07/19 at 17:15 Temazepam (Restoril) 7.5 mg PRN QHS PRN PO INSOMNIA; Start 03/07/19 at 17:15 Acetaminophen (Tylenol) 500 mg PRN Q6HRS PRN PO MILD PAIN / TEMP; Start at 17:15 Acetaminophen/ Codeine Phosphate (Tylenol #3) 1 tab PRN Q6HRS PRN PO MODERATE PAIN; Start 03/07/19 at 17:15 Ondansetron HCl (Zofran) 4 mg PRN Q6HRS PRN IV NAUSEA/VOMITING; Start 03/07/19 at 17:15 Oxycodone/ Acetaminophen (Percocet 5/325) 1 tab PRN Q4HRS PRN PO SEVERE PAIN Last administered on 03/08/19at 14:54; Start 03/07/19 at 17:15 Albuterol Sulfate (Ventolin Neb Soln) 1 mg PRN Q4HRS PRN INH SHORTNESS OF BREATH; Start 03/07/19 at 22:30; Stop 03/09/19 at 14:32; Status DC Alprazolam (Xanax) 0.25 mg QHS PO Last administered on 03/09/19 21:09; Start 03/07/19 at 23:00 Amiodarone HCl (Cordarone) 200 mg DAILY PO Last administered on 03/10/19 09:39 ; Start 03/08/19 at 09:00 Bupropion HCl (Wellbutrin Sr) 300 mg DAILY PO Last administered on 03/10/19 09 :41; Start 03/08/19 at 09:00 Cyanocobalamin (Vitamin B-12) 2,500 mcg DAILY PO Last administered on 09:40; Start 03/08/19 at 09:00 Furosemide (Lasix) 20 mg DAILY PO Last administered on 03/10/19 09:40; Start 03/08/19 at 09:00 Metoprolol Tartrate (Lopressor) 25 mg BID PO Last administered on 03/10/19 09: 38; Start 03/07/19 at 23:00 Diltiazem HCl (Cardizem 24hr Cd) 240 mg DAILY PO Last administered on 09:37; Start 03/08/19 at 09:00 Multivitamins (Thera M Plus) 1 tab DAILY PO Last administered on 03/10/19 09: 38; Start 03/08/19 at 09:00 Potassium Chloride (Klor-Con) 10 meq DAILY08 PO Last administered on 03/10/19 09:38; Start 03/08/19 at 08:00 Rivaroxaban (Xarelto) 20 mg DAILY PO Last administered on 03/10/19 09:37; Start 03/08/19 at 09:00 Atorvastatin Calcium (Lipitor) 80 mg HS PO Last administered on 03/09/19 21:10 ; Start 03/08/19 at 21:00 Pantoprazole Sodium (Protonix) 40 mg DAILYAC PO Last administered on 03/10/19 09:38; Start 03/08/19 at 07:30 Alprazolam (Xanax) 0.5 mg PRN DAILY PRN PO ANXIETY / AGITATION; Start 03/08/19 at 09:00 Bupropion HCl (Wellbutrin Sr) 150 mg QHS PO Last administered on 03/09/19 21: 10; Start 03/07/19 at 23:00 Ceftriaxone Sodium (Rocephin) 1 gm Q24H IVP Last administered on 03/09/19at 17: 56; Start 03/08/19 at 17:00 Lactobacillus Rhamnosus (Culturelle) 1 cap BID PO Last administered on 09:36; Start 03/08/19 at 21:00 Potassium Chloride (Klor-Con) 40 meq 1X ONCE PO Last administered on 13:43; Start 03/09/19 at 11:00; Stop 03/09/19 at 11:01; Status DC Fluticasone Propionate (Flonase) 2 spray DAILY NS Last administered on 09:36; Start 03/09/19 at 13:00 Albuterol Sulfate (Ventolin Neb Soln) 2.5 mg PRN Q4HRS PRN INH SHORTNESS OF BREATH; Start 03/09/19 at 14:32; Stop 03/09/19 at 14:33; Status DC Albuterol Sulfate (Ventolin Neb Soln) 2.5 mg PRN Q4HRS PRN NEB SHORTNESS OF BREATH; Start 03/09/19 at 14:33 Active Scripts Active Reported Doxycycline Hyclate 100 Mg Tablet 1 Tab PO BID Proair Hfa (Albuterol Sulfate) 8.5 Gm Hfa.aer.ad 2 Puff IN PRN Q4HRS PRN Furosemide 20 Mg Tablet 1 Tab PO DAILY Klor-Con 10 (Potassium Chloride) 10 Meq Tablet.er 1 Tab PO DAILY Cardizem Cd (Diltiazem Hcl) 240 Mg Cap.er.24h 1 Cap PO DAILY Amiodarone Hcl 200 Mg Tablet 1 Tab PO DAILY Vitamin And Minerals (Multivitamins,Ther W-Minerals) 1 Each Tablet 1 Each PO DAILY Vitamin B-12 (Cyanocobalamin (Vitamin B-12)) 1,000 Mcg Tablet 2,500 Mcg PO DAILY Metoprolol Tartrate 25 Mg Tablet 25 Mg PO BID Xarelto (Rivaroxaban) 20 Mg Tablet 20 Mg PO DAILY Xanax (Alprazolam) 0.25 Mg Tablet 0.25 Mg PO BID 2 tabs in the am, 1 tab at night Crestor (Rosuvastatin Calcium) 40 Mg Tablet 40 Mg PO DAILY Nexium Capsule (Esomeprazole Magnesium) 40 Mg Capsule.dr 40 Mg PO Wellbutrin Sr (Bupropion Hcl) 150 Mg Tablet.er 150 Mg PO BID 2 tabs in the am, 1 tab at hs Vitals/I & O Vital Sign - Last 24 Hours 03/09/19 03/09/19 03/09/19 03/09/19 11:00 11:42 15:00 15:46 Temp 97.9 97.3 97.9 97.3 Pulse 78 62 Resp 20 20 B/P (MAP) 134/75 (94) 118/72 (87) Pulse Ox 94 95 95 O2 Delivery Room Air Room Air Room Air Room Air 03/09/19 03/09/19 03/09/19 03/09/19 19:05 19:53 20:00 21:09 Temp 98.7 98.7 Pulse 65 65 Resp 18 B/P (MAP) 122/68 (86) 122/66 Pulse Ox 92 O2 Delivery Room Air Room Air Room Air 03/09/19 03/10/19 03/10/19 03/10/19 23:05 03:05 06:14 07:30 Temp 97.6 98.0 98.0 97.6 98.0 98.0 Pulse 71 64 62 Resp 16 16 18 B/P (MAP) 147/70 (95) 113/64 (80) 112/75 (87) Pulse Ox 97 94 94 O2 Delivery Room Air Room Air Room Air Room Air 03/10/19 03/10/19 03/10/19 09:37 09:38 09:39 Pulse 62 62 62 B/P (MAP) 112/75 112/75 112/75 Intake and Output 03/09/19 03/09/19 03/10/19 15:00 23:00 07:00 Intake Total 500 ml 440 ml 600 ml Balance 500 ml 440 ml 600 ml YANCY VALDERRAMA MD Mar 10, 2019 10:19
[2019-03-10 11:06] VITALS: BP 115/69
--- NOTE | 2019-03-10 13:43 | PDOC3 ---
Discharge Summary Date of Admission: Mar 07, 2019 Date of Discharge: Mar 10, 2019 Follow-Up: 3-5 days Admitting Diagnosis comment: discharge dx COPD exacerbation, acute slow to improve 40 pk yr hx Acute bronchitis-no consolidation or chest x-ray Ex-smoker, smoked for 40 years Hypertension, chronic low back go, anxiety NOS-chronic stable Hypoxic RF with normal d dimer CHEST PAIN , NL CATH 04/2017 a-fib Plan: DuoNeb's, qid cough medicine, pulmo consult, continue current rx home meds CARD CONSULT RE-EVAL RISK CAD TELE refer to EP on an outpatient basis xarelto for stroke prevention 20mg po daily needs out pt sleep study soon FULL CODE Vitals Vitals Vital Signs Date Time Temp Pulse Resp B/P (MAP) Pulse Ox O2 Delivery O2 Flow Rate FiO2 03/10/19 09:39 62 112/75 03/10/19 07:30 98.0 18 94 Room Air 98.0 Physical Exam General: Alert, Oriented X3, Cooperative, No acute distress, no distress Heart: (irr) Lungs: Crackles Abdomen: Soft, No tenderness Extremities: No edema, Normal pulses Skin: No significant lesion FINAL DIAGNOSIS Problems Medical Problems: (1) Afib Status: Acute (2) Anxiety Status: Acute (3) COPD exacerbation Status: Acute (4) Non-cardiac chest pain Status: Acute Brief Hospital Course Mr. Leon is a 59 old [sex] who presented with [ copd exac] CONDITION AT DISCHARGE: Improved Discharge Medications Current Medications Albuterol/ Ipratropium (Duoneb) 3 ml 1X ONCE NEB Last administered on at 15:13; Start 03/07/19 at 15:00; Stop 03/07/19 at 15:05; Status DC Methylprednisolone Sodium Succinate (SOLU-Medrol 125MG VIAL) 125 mg 1X ONCE IV Last administered on 03/07/19at 15:27; Start 03/07/19 at 15:00; Stop 03/07/19 at 15:05; Status DC Fentanyl Citrate (Fentanyl 2ml Vial) 50 mcg 1X ONCE IV Last administered on 03/07/19at 16:08; Start 03/07/19 at 16:15; Stop 03/07/19 at 16:16; Status DC Ceftriaxone Sodium (Rocephin) 1 gm 1X ONCE IVP Last administered on 03/07/19 17:27; Start 03/07/19 at 16:45; Stop 03/07/19 at 16:46; Status DC Albuterol/ Ipratropium (Duoneb) 3 ml RTQID NEB Last administered on 03/10/19at 12:22; Start 03/07/19 at 20:00 Guaifenesin (Robitussin Dm) 10 ml PRN Q6HRS PRN PO COUGH Last administered on 09:38; Start 03/07/19 at 17:15 Temazepam (Restoril) 7.5 mg PRN QHS PRN PO INSOMNIA; Start 03/07/19 at 17:15 Acetaminophen (Tylenol) 500 mg PRN Q6HRS PRN PO MILD PAIN / TEMP; Start at 17:15 Acetaminophen/ Codeine Phosphate (Tylenol #3) 1 tab PRN Q6HRS PRN PO MODERATE PAIN; Start 03/07/19 at 17:15 Ondansetron HCl (Zofran) 4 mg PRN Q6HRS PRN IV NAUSEA/VOMITING; Start 03/07/19 at 17:15 Oxycodone/ Acetaminophen (Percocet 5/325) 1 tab PRN Q4HRS PRN PO SEVERE PAIN Last administered on 03/08/19at 14:54; Start 03/07/19 at 17:15 Albuterol Sulfate (Ventolin Neb Soln) 1 mg PRN Q4HRS PRN INH SHORTNESS OF BREATH; Start 03/07/19 at 22:30; Stop 03/09/19 at 14:32; Status DC Alprazolam (Xanax) 0.25 mg QHS PO Last administered on 03/09/19at 21:09; Start 03/07/19 at 23:00 Amiodarone HCl (Cordarone) 200 mg DAILY PO Last administered on 03/10/19 09:39 ; Start 03/08/19 at 09:00 Bupropion HCl (Wellbutrin Sr) 300 mg DAILY PO Last administered on 03/10/19 09 :41; Start 03/08/19 at 09:00 Cyanocobalamin (Vitamin B-12) 2,500 mcg DAILY PO Last administered on 09:40; Start 03/08/19 at 09:00 Furosemide (Lasix) 20 mg DAILY PO Last administered on 03/10/19 09:40; Start 03/08/19 at 09:00 Metoprolol Tartrate (Lopressor) 25 mg BID PO Last administered on 03/10/19 09: 38; Start 03/07/19 at 23:00 Diltiazem HCl (Cardizem 24hr Cd) 240 mg DAILY PO Last administered on 09:37; Start 03/08/19 at 09:00 Multivitamins (Thera M Plus) 1 tab DAILY PO Last administered on 03/10/19 09: 38; Start 03/08/19 at 09:00 Potassium Chloride (Klor-Con) 10 meq DAILY08 PO Last administered on 03/10/19 09:38; Start 03/08/19 at 08:00 Rivaroxaban (Xarelto) 20 mg DAILY PO Last administered on 03/10/19 09:37; Start 03/08/19 at 09:00 Atorvastatin Calcium (Lipitor) 80 mg HS PO Last administered on 03/09/19 21:10 ; Start 03/08/19 at 21:00 Pantoprazole Sodium (Protonix) 40 mg DAILYAC PO Last administered on 03/10/19 09:38; Start 03/08/19 at 07:30 Alprazolam (Xanax) 0.5 mg PRN DAILY PRN PO ANXIETY / AGITATION; Start 03/08/19 at 09:00 Bupropion HCl (Wellbutrin Sr) 150 mg QHS PO Last administered on 03/09/19 21: 10; Start 03/07/19 at 23:00 Ceftriaxone Sodium (Rocephin) 1 gm Q24H IVP Last administered on 03/09/19 17: 56; Start 03/08/19 at 17:00 Lactobacillus Rhamnosus (Culturelle) 1 cap BID PO Last administered on 09:36; Start 03/08/19 at 21:00 Potassium Chloride (Klor-Con) 40 meq 1X ONCE PO Last administered on 13:43; Start 03/09/19 at 11:00; Stop 03/09/19 at 11:01; Status DC Fluticasone Propionate (Flonase) 2 spray DAILY NS Last administered on at 09:36; Start 03/09/19 at 13:00 Albuterol Sulfate (Ventolin Neb Soln) 2.5 mg PRN Q4HRS PRN INH SHORTNESS OF BREATH; Start 03/09/19 at 14:32; Stop 03/09/19 at 14:33; Status DC Albuterol Sulfate (Ventolin Neb Soln) 2.5 mg PRN Q4HRS PRN NEB SHORTNESS OF BREATH; Start 03/09/19 at 14:33 Active Scripts Active Reported Doxycycline Hyclate 100 Mg Tablet 1 Tab PO BID Proair Hfa (Albuterol Sulfate) 8.5 Gm Hfa.aer.ad 2 Puff IN PRN Q4HRS PRN Furosemide 20 Mg Tablet 1 Tab PO DAILY Klor-Con 10 (Potassium Chloride) 10 Meq Tablet.er 1 Tab PO DAILY Cardizem Cd (Diltiazem Hcl) 240 Mg Cap.er.24h 1 Cap PO DAILY Amiodarone Hcl 200 Mg Tablet 1 Tab PO DAILY Vitamin And Minerals (Multivitamins,Ther W-Minerals) 1 Each Tablet 1 Each PO DAILY Vitamin B-12 (Cyanocobalamin (Vitamin B-12)) 1,000 Mcg Tablet 2,500 Mcg PO DAILY Metoprolol Tartrate 25 Mg Tablet 25 Mg PO BID Xarelto (Rivaroxaban) 20 Mg Tablet 20 Mg PO DAILY Xanax (Alprazolam) 0.25 Mg Tablet 0.25 Mg PO BID 2 tabs in the am, 1 tab at night Crestor (Rosuvastatin Calcium) 40 Mg Tablet 40 Mg PO DAILY Nexium Capsule (Esomeprazole Magnesium) 40 Mg Capsule.dr 40 Mg PO Wellbutrin Sr (Bupropion Hcl) 150 Mg Tablet.er 150 Mg PO BID 2 tabs in the am, 1 tab at hs Vital Signs Vital Signs Date Time Temp Pulse Resp B/P (MAP) Pulse Ox O2 Delivery O2 Flow Rate FiO2 03/10/19 12:22 94 Room Air 03/10/19 11:06 98.1 62 20 115/69 (84) 98.1 Labs Laboratory Tests Test 03/09/19 03:00 03/10/19 03:55 White Blood Count 10.2 x10^3/uL (4.0-11.0) 6.8 x10^3/uL (4.0-11.0) Red Blood Count 4.18 x10^6/uL (4.30-5.70) 4.07 x10^6/uL (4.30-5.70) Hemoglobin 13.7 g/dL (13.0-17.5) 13.3 g/dL (13.0-17.5) Hematocrit 40.8 % (39.0-53.0) 39.7 % (39.0-53.0) Mean Corpuscular Volume 97 fL (79-100) 98 fL (79-100) Mean Corpuscular Hemoglobin 33 pg (25-35) 33 pg (25-35) Mean Corpuscular Hemoglobin Concent 34 g/dL (31-37) 34 g/dL (31-37) Red Cell Distribution Width 12.7 % (11.5-14.5) 12.4 % (11.5-14.5) Platelet Count 246 x10^3/uL (140-400) 242 x10^3/uL (140-400) Neutrophils (%) (Auto) 77 % (31-73) 67 % (31-73) Lymphocytes (%) (Auto) 15 % (24-48) 21 % (24-48) Monocytes (%) (Auto) 8 % (0-9) 10 % (0-9) Eosinophils (%) (Auto) 0 % (0-3) 1 % (0-3) Basophils (%) (Auto) 0 % (0-3) 1 % (0-3) Neutrophils # (Auto) 7.9 x10^3uL (1.8-7.7) 4.6 x10^3uL (1.8-7.7) Lymphocytes # (Auto) 1.5 x10^3/uL (1.0-4.8) 1.4 x10^3/uL (1.0-4.8) Monocytes # (Auto) 0.8 x10^3/uL (0.0-1.1) 0.7 x10^3/uL (0.0-1.1) Eosinophils # (Auto) 0.0 x10^3/uL (0.0-0.7) 0.1 x10^3/uL (0.0-0.7) Basophils # (Auto) 0.0 x10^3/uL (0.0-0.2) 0.0 x10^3/uL (0.0-0.2) Sodium Level 142 mmol/L (136-145) 139 mmol/L (136-145) Potassium Level 3.1 mmol/L (3.5-5.1) 3.7 mmol/L (3.5-5.1) Chloride Level 104 mmol/L (98-107) 103 mmol/L (98-107) Carbon Dioxide Level 27 mmol/L (21-32) 27 mmol/L (21-32) Anion Gap 11 (6-14) 9 (6-14) Blood Urea Nitrogen 22 mg/dL (8-26) 16 mg/dL (8-26) Creatinine 1.1 mg/dL (0.7-1.3) 1.0 mg/dL (0.7-1.3) Estimated GFR (Cockcroft-Gault) 68.3 76.2 Glucose Level 109 mg/dL (70-99) 99 mg/dL (70-99) Calcium Level 9.1 mg/dL (8.5-10.1) 9.4 mg/dL (8.5-10.1) Magnesium Level 2.2 mg/dL (1.8-2.4) Troponin I Quantitative < 0.017 ng/mL (0.000-0.055) Laboratory Tests Test 03/10/19 03:55 White Blood Count 6.8 x10^3/uL (4.0-11.0) Red Blood Count 4.07 x10^6/uL (4.30-5.70) Hemoglobin 13.3 g/dL (13.0-17.5) Hematocrit 39.7 % (39.0-53.0) Mean Corpuscular Volume 98 fL (79-100) Mean Corpuscular Hemoglobin 33 pg (25-35) Mean Corpuscular Hemoglobin Concent 34 g/dL (31-37) Red Cell Distribution Width 12.4 % (11.5-14.5) Platelet Count 242 x10^3/uL (140-400) Neutrophils (%) (Auto) 67 % (31-73) Lymphocytes (%) (Auto) 21 % (24-48) Monocytes (%) (Auto) 10 % (0-9) Eosinophils (%) (Auto) 1 % (0-3) Basophils (%) (Auto) 1 % (0-3) Neutrophils # (Auto) 4.6 x10^3uL (1.8-7.7) Lymphocytes # (Auto) 1.4 x10^3/uL (1.0-4.8) Monocytes # (Auto) 0.7 x10^3/uL (0.0-1.1) Eosinophils # (Auto) 0.1 x10^3/uL (0.0-0.7) Basophils # (Auto) 0.0 x10^3/uL (0.0-0.2) Sodium Level 139 mmol/L (136-145) Potassium Level 3.7 mmol/L (3.5-5.1) Chloride Level 103 mmol/L (98-107) Carbon Dioxide Level 27 mmol/L (21-32) Anion Gap 9 (6-14) Blood Urea Nitrogen 16 mg/dL (8-26) Creatinine 1.0 mg/dL (0.7-1.3) Estimated GFR (Cockcroft-Gault) 76.2 Glucose Level 99 mg/dL (70-99) Calcium Level 9.4 mg/dL (8.5-10.1) Allergies Allergies Coded Allergies Type Severity Reaction Last Updated Verified No Known Drug Allergies 11/16/14 No Disposition/Orders: D/C to Home Patient Instructions d/c planning 35 min YANCY VALDERRAMA MD Mar 10, 2019 13:43
--- NOTE | 2019-03-10 13:50 | DISCH ---
DISCHARGE INSTRUCTIONS Condition on Discharge Condition on Discharge: Stable Activity After Discharge Activity Instructions for Disc: Activity as tolerated Bathing Instructions: Shower-keep dressing dry Lifting Instructions after Dis: No heavy lifting, No pulling or pushing, Do not lift >10 pounds Exercise Instruction after Dis: Walk 30 min, 3 x per week Driving Instructions after Dis: Do not drive today Weight Bearing Status after Di: Other, see below Diet after Discharge Diet after Discharge: Cardiac Diet Texture: Regular Swallowing Supervision: None needed Checks after Discharge Checks after discharge: Check blood press - daily Contacting the DR. after DC Call your doctor for: If your condition worsens Treatment/Equipment after DC Adaptive Equipment Issued: None YANCY VALDERRAMA MD Mar 10, 2019 13:50
== END 2019-03-10 15:14 | disposition home or self-care (01) | DRG 190 ==
LOC: ER 14:36 → 6 SOUTH 16:42
PROVIDERS: ADMIT Internal Medicine; ATTEND Internal Medicine
DX: J44.0 Chronic obstructive pulmonary disease with (acute) lower respiratory infection (principal); J96.91 Respiratory failure, unspecified with hypoxia; I50.32 Chronic diastolic (congestive) heart failure; N17.9 Acute kidney failure, unspecified; J44.1 Chronic obstructive pulmonary disease with (acute) exacerbation; J20.9 Acute bronchitis, unspecified; I48.91 Unspecified atrial fibrillation; R07.89 Other chest pain; E66.01 Morbid (severe) obesity due to excess calories; E78.5 Hyperlipidemia, unspecified; E87.6 Hypokalemia; F41.9 Anxiety disorder, unspecified; I11.0 Hypertensive heart disease with heart failure; J30.9 Allergic rhinitis, unspecified; K21.9 Gastro-esophageal reflux disease without esophagitis; N40.0 Benign prostatic hyperplasia without lower urinary tract symptoms; R09.02 Hypoxemia; Z68.37 Body mass index [BMI] 37.0-37.9, adult; Z87.891 Personal history of nicotine dependence; Z90.49 Acquired absence of other specified parts of digestive tract
CPT/HCPCS: 36415; 71045; 80048; 80053; 81001; 82550; 83605; 83735; 83880; 84484; 85025; 85379; 87040; 93005; 93306; 94640; 96374; 96375; J0696; J2930; J3010; J7620; 99285-25

== ENCOUNTER 2019-04-14 10:33 | Day surgery (SDC) | payer BC ==
[~2019-04-14 10:33] MED LIST changes: +ALBU2.5V8 IN; +DOXY100T PO; +FURO20TA3 PO; +HYDROmorphone 2 MG/ML VIAL IV PRN; +IV RINGERS,LACTATED 1000ML 1,000 ML IV SCH; +MORPHINE SULFATE 2 MG/ML VIAL. IV PRN; +ONDANSETRON PF 4 MG/2 ML VIAL. IV PRN; +POTA10TA6 PO; +PROCHLORPERAZINE 10 MG/2 ML VIAL. IV PRN; +fentaNYL PF VIAL 100 MCG/2 ML VIAL IV PRN
[2019-04-14] MEDS ORDERED: IV NORMAL SALINE 1000ML BAG 1,000 ML IV SCH (11:34)
[2019-04-14] MEDS ORDERED: LIDOCAINE 2% TOPICAL JELLY 30GM TUBE. TP ONE (11:42)
[2019-04-14] MEDS ORDERED: LIDOCAINE 2% VISCOUS 15 ML SOLUTION. ONE (11:42)
[2019-04-14] MEDS ORDERED: BENZOCAINE ONE 20% MUCOSAL SPRAY. (11:42)
[2019-04-14] MEDS ORDERED: PROPOFOL 20 ML IV ONE ×2 (12:22)
[2019-04-14 13:26] VITALS: BP 117/68
--- NOTE | 2019-04-14 16:24 | CARD ---
MR#: [id number] Date of Study: 04/14/2019 Ordering Physician: TRACEE WILBURN, Referring Physician: TRACEE WILBURN Tech: Marilee Case RDCS APPROVED REPORT EXAM: Transesophageal echocardiogram with color flow Doppler. INDICATION Atrial Fibrillation Reason For Test : Rule out Intracardiac Thrombus. PROCEDURE After obtaining informed consent, patient underwent transesophageal echo in the PACU. Type of Sedation : General Anesthesia Sedation was administered by Anesthesia. Sedation was achieved with Propofol 200mg intravenously. Throughout the procedure, the blood pressure, pulse oximetry, cardiac rhythm, and rate were monitored . LEFT VENTRICLE The Left Ventricle is mildly dilated. There is mild concentric left ventricular hypertrophy. The left ventricular systolic function is moderately impaired. The Ejection Fraction is 35-40%. There is glob al hypokinesis of the left ventricle. RIGHT VENTRICLE The right ventricle is mildly dilated. There is normal right ventricular wall thickness. The right ve ntricular systolic function is normal. ATRIA The left atrium is mildly dilated. The right atrium is mildly dilated. The interatrial septum is inta ct with no evidence for an atrial septal defect or patent foramen ovale as noted on 2-D or Doppler im aging. There is no thrombus noted in the left atrial appendage. AORTIC VALVE The aortic valve is normal in structure and function. The aortic valve is trileaflet. Doppler and Col or Flow revealed no significant aortic regurgitation. There is no significant aortic valvular stenosi s. There is no aortic valvular vegetation. MITRAL VALVE The mitral valve is normal in structure and function. There is no evidence of mitral valve prolapse. There is no mitral valve stenosis. Doppler and Color-flow revealed mild mitral regurgitation. TRICUSPID VALVE The tricuspid valve is normal in structure and function. Doppler and Color Flow revealed trace tricus pid regurgitation. There is no tricuspid valve prolapse or vegetation. There is no tricuspid valve st enosis. PULMONIC VALVE The pulmonary valve is normal in structure and function. Doppler and Color Flow revealed trace pulmon ic valvular regurgitation. There is no pulmonic valvular stenosis. GREAT VESSELS The aortic root is normal in size. The ascending aorta is normal in size. PERICARDIAL EFFUSION There is no evidence of significant pericardial effusion. Critical Notification Critical Value: No <Conclusion> The left ventricular systolic function is moderately impaired. The Ejection Fraction is 35-40%. Mild mitral regurgitation. Trace tricuspid regurgitation. There is no evidence of significant pericardial effusion. There is no thrombus noted in the left atrial appendage. Signed by : Tracee Wilburn, Electronically Approved : 04/14/2019 16:23:39
== END 2019-04-14 13:46 | disposition home or self-care (01) ==
LOC: SURG 10:33
PROVIDERS: ATTEND Internal Medicine Cardiovascular Disease
DX: I08.1 Rheumatic disorders of both mitral and tricuspid valves (principal); E78.5 Hyperlipidemia, unspecified; I48.91 Unspecified atrial fibrillation; Z90.49 Acquired absence of other specified parts of digestive tract
CPT/HCPCS: 93312; 93325; A7015; J2704

== ENCOUNTER → 2020-07-22 | Outpatient (CLI) | payer BC ==
[~2020-07-22] MED LIST changes: +CYAN-25 PO; -CYAN10005 PO; -HYDROmorphone 2 MG/ML VIAL IV PRN; -IV RINGERS,LACTATED 1000ML 1,000 ML IV SCH; -MORPHINE SULFATE 2 MG/ML VIAL. IV PRN; -ONDANSETRON PF 4 MG/2 ML VIAL. IV PRN; -PROCHLORPERAZINE 10 MG/2 ML VIAL. IV PRN; -fentaNYL PF VIAL 100 MCG/2 ML VIAL IV PRN
--- NOTE | 2020-07-22 15:54 | RAD ---
INDICATION: Reason: LT CALF PAIN / Spl. Instructions: / History: COMPARISON: None. FINDINGS: Focused ultrasound images are obtained of the left calf. No drainable fluid collection or mass is seen on focused ultrasound of the midcalf IMPRESSION: * No fluid collection or mass is seen on focused ultrasound. Electronically signed by: Raj King MD (07/22/2020 3:51 PM) [id number]
--- NOTE | 2020-07-22 15:54 | RAD ---
INDICATION: Reason: L CALF PAIN / Spl. Instructions: / History: COMPARISON: None. TECHNIQUE: Grayscale, color and doppler ultrasound images were obtained of the left lower extremity venous vasculature. LEFT: No thrombus identified in the common femoral vein, femoral vein, popliteal vein or visualized calf veins. IMPRESSION: * No thrombus identified in deep venous system of the left lower extremity. Electronically signed by: Raj King MD (07/22/2020 3:51 PM) [id number]
== END ==
LOC: US 14:55
PROVIDERS: ATTEND Family Medicine
DX: M79.662 Pain in left lower leg (principal)
CPT/HCPCS: 76881; 93971

== ENCOUNTER → 2020-07-23 | Outpatient (CLI) | payer BC ==
--- NOTE | 2020-07-23 17:12 | KCIC ---
AP and lateral left tibia and fibula radiographs 07/23/2020 CLINICAL HISTORY: Left calf pain for 2 weeks. 2 AP and 2 lateral digital radiographs of the left tibia and fibula were obtained. No fracture or dislocation of the left tibia or fibula is seen. Moderate enthesophyte formation is seen involving the superior anterior left patella. Moderate degenerative changes are seen involving the left ankle joint. Moderate enthesophyte formation is seen involving the posterior left calcaneus. IMPRESSION: Degenerative changes are seen as discussed above. No acute osseous abnormality is seen. Electronically signed by: Bandar Forrest MD (07/23/2020 5:09 PM) [id number]
== END | disposition home or self-care (01) ==
LOC: KCIC 14:29
PROVIDERS: ATTEND Family Medicine
DX: M19.072 Primary osteoarthritis, left ankle and foot (principal); M77.32 Calcaneal spur, left foot
CPT/HCPCS: 73590

== ENCOUNTER → 2020-11-15 | Day surgery (SDC) | payer BC ==
[~2020-11-15] MED LIST changes: -AMIO200T4 PO; +AMIO200T6 PO; +IV RINGERS,LACTATED 1000ML 1,000 ML IV SCH; +LIDOCAINE 2% PF 5 ML VIAL. ONE; +PROPOFOL 10 MG/ML (20ML) VIAL. IV ONE
--- NOTE | 2020-11-15 07:55 | CONS ---
DATE OF CONSULTATION: 11/15/2020 REFERRING PHYSICIAN: Pippa Zhou MD REASON FOR CONSULTATION: Colorectal screening. HISTORY OF PRESENT ILLNESS: A 60-year-old male with past medical history significant for AFib, hypertension, hyperlipidemia, gastroesophageal reflux disease, seen for screening colon exam. Bowel habits are regular without diarrhea or constipation. There has been no melena or hematochezia. Weight and appetite have been stable. No additional complaints at the present time. PAST MEDICAL HISTORY: Hypertension, hyperlipidemia, AFib, GERD, COPD. ALLERGIES: None. MEDICATIONS: Include albuterol, Xanax, Wellbutrin, Cardizem, Nexium, furosemide, metoprolol, K-Marry, Xarelto, and Crestor. FAMILY AND SOCIAL HISTORY: Nonsmoker or drinker at this time. FAMILY HISTORY: Per records. REVIEW OF SYSTEMS: As noted. PAST SURGICAL HISTORY: Appendectomy, cholecystectomy, and hernia repair. PHYSICAL EXAMINATION: GENERAL: Reveals a well-nourished, well-developed male, alert and cooperative, in no acute distress. VITAL SIGNS: Temperature 97.9, pulse 71, respiratory rate 20, sats 94%. LUNGS: Clear. CARDIOVASCULAR: Reveals an S1, S2 without S3, S4 or appreciable murmur. ABDOMEN: Reveals a soft abdomen. Normal bowel sounds, without appreciable hepatosplenomegaly. EXTREMITIES: Reveals no cyanosis, clubbing or edema. IMPRESSION: Colorectal screening is warranted at this time. Risks and benefits of procedure including risk of hemorrhage and perforation during the operation were discussed. The patient is willing to proceed. NELLY STEPHENSON MD DR: MALACHI/dioni JOB#: [id number] / [id number] PIPPA Fulton MD
[2020-11-15 08:22] VITALS: BP 105/71
== END | disposition home or self-care (01) ==
LOC: ENDOS 06:29
PROVIDERS: ATTEND Internal Medicine Gastroenterology
DX: Z12.11 Encounter for screening for malignant neoplasm of colon (principal); K64.0 First degree hemorrhoids; K57.30 Diverticulosis of large intestine without perforation or abscess without bleeding; I11.0 Hypertensive heart disease with heart failure; I50.9 Heart failure, unspecified; E78.00 Pure hypercholesterolemia, unspecified; J43.9 Emphysema, unspecified; I48.91 Unspecified atrial fibrillation; N40.0 Benign prostatic hyperplasia without lower urinary tract symptoms; K21.9 Gastro-esophageal reflux disease without esophagitis; E66.9 Obesity, unspecified; F41.9 Anxiety disorder, unspecified; F32.9 Major depressive disorder, single episode, unspecified; Z87.891 Personal history of nicotine dependence; Z90.49 Acquired absence of other specified parts of digestive tract; Z98.890 Other specified postprocedural states; Z80.3 Family history of malignant neoplasm of breast; Z79.899 Other long term (current) drug therapy
CPT/HCPCS: 45378; J2704

== ENCOUNTER 2020-12-23 14:37 | Inpatient (IN) | payer BC ==
[~2020-12-23] VITALS: Ht 185.4 cm; Wt 132.5 kg
[~2020-12-23 14:37] MED LIST changes: -IV RINGERS,LACTATED 1000ML 1,000 ML IV SCH; -LIDOCAINE 2% PF 5 ML VIAL. ONE; -PROPOFOL 10 MG/ML (20ML) VIAL. IV ONE
[2020-12-23] MEDS ORDERED: METOPROLOL TART IMMED RELEASE 25 MG TABLET. PO ONE (15:15)
--- NOTE | 2020-12-23 15:32 | RAD ---
XR CHEST 1V History: Reason: COVID-19 + SHORT OF BREATH AND CHEST PAIN / Spl. Instructions: / History: Comparison: March 07, 2019 Findings: Ill-defined mid and bibasilar opacities. No pleural effusion. No pneumothorax. Portable technique acc entuates cardiac size. Impression: 1. Ill-defined mid and bibasilar opacities, may represent atelectasis or infiltrates including viral pneumonia. Electronically signed by: Elliott Yanes DO (12/23/2020 3:30 PM) [id number]
[2020-12-23 15:33] LABS: BASO % 0 % (0-3); EOS % 0 % (0-3); HEMATOCRIT 42.1 % (39.0-53.0); HEMOGLOBIN 14.7 g/dL (13.0-17.5); LYMPH # 0.6 x10^3/uL (1.0-4.8); LYMPH % 11 % (24-48); MEAN CORPUSCULAR HEMOGLOBIN 34 pg (25-35); MEAN CORPUSCULAR HGB CONC 35 g/dL (31-37); MEAN CORPUSCULAR VOLUME 96 fL (79-100); MONO # 0.4 x10^3/uL (0.0-1.1); MONO % 7 % (0-9); NEUT # 4.3 x10^3/uL (1.8-7.7); NEUT % 82 % (31-73); PLATELET COUNT 144 x10^3/uL (140-400); RED BLOOD COUNT 4.37 x10^6/uL (4.30-5.70); RED CELL DISTRIBUTION WIDTH 12.5 % (11.5-14.5); WHITE BLOOD COUNT 5.2 x10^3/uL (4.0-11.0)
[2020-12-23] MEDS ORDERED: ACETAMINOPHEN 500 MG TABLET PO ONE (15:45)
[2020-12-23] MEDS ORDERED: IV NORMAL SALINE 1000ML BAG 1,000 ML IV ONE (16:15)
[2020-12-23] MEDS ORDERED: dilTIAZem IV PUSH 25 MG/5 ML VIAL IVP ONE (16:15)
[2020-12-23] MEDS ORDERED: cefTRIAXone IV Push 1 GM VIAL. IVP ONE (16:15)
--- NOTE | 2020-12-23 16:27 | EKG ---
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
[2020-12-23 16:55] LABS: CALCIUM 8.3 mg/dL (8.5-10.1); CREATININE 1.1 mg/dL (0.7-1.3); GFR 68.1; POTASSIUM 3.4 mmol/L (3.5-5.1)
[2020-12-23 17:01] LABS: ALBUMIN 3.1 g/dL (3.4-5.0); ALBUMIN/GLOBULIN RATIO 0.9 (1.0-1.7); TOTAL BILIRUBIN 0.6 mg/dL (0.2-1.0); TOTAL PROTEIN 6.5 g/dL (6.4-8.2)
--- NOTE | 2020-12-23 17:27 | PHYS DOC ---
Past Medical History Past Medical History: A-Fib, Anxiety, COPD, Depression, GERD, Hypertension Additional Past Medical Histor: ENLARGED PROSTATE, ANEURYSM Past Surgical History: Appendectomy, Cholecystectomy, Other Additional Past Surgical Histo: hernia surgery, heart cath-clean Smoking Status: Former Smoker Alcohol Use: None Drug Use: None General Adult EDM: Chief Complaint: SHORTNESS OF BREATH HPI: HPI: Patient is a 60 year old male presents via EMS emergency department complaining of increased shortness of breath. EMS reports the patient was hypoxic with an O2 sat of 80 and was placed on 15 L nonrebreather, MS front desk team member reports patient hypotensive with a pressure 80/40 and placed the patient in Trendelenburg for transport to the emergency department. During physical examination the patient did not look toxic, was in an upright seated position for blood pressure which was 148/69, heart rate showed 154 A. fib RVR on the bedside 5-lead monitor, O2 sat was 97% on 2 L per nasal cannula. The patient was afebrile with a temperature of 100.0 oral temp. The patient complained of increased shortness of breath for the past week since he found out he had the COVID-19 virus. Patient states today he felt "so bad that I could not stand up and take my daily medications "patient denies chest pain, nausea, vomiting, diarrhea, abdominal pains. She denies any other physical complaints or physical symptoms. Review of Systems: Review of Systems: 14 body systems of review of systems have been reviewed. See HPI for pertinent positives and negative responses, otherwise all other systems are negative, nonpertinent or noncontributory. Heart Score: Risk Factors: Risk Factors: DM, Current or recent (<one month) smoker, HTN, HLP, family history of CAD, obesity. Risk Scores: Score 0 - 3: 2.5% MACE over next 6 weeks - Discharge Home Score 4 - 6: 20.3% MACE over next 6 weeks - Admit for Clinical Observation Score 7 - 10: 72.7% MACE over next 6 weeks - Early Invasive Strategies Current Medications: Current Medications Medications (Trade) Dose Ordered Sig/Padmini Start Time Stop Time Status Last Admin Dose Admin Acetaminophen (Tylenol) 1,000 mg 1X ONCE 12/23/20 15:45 12/23/20 15:46 DC 12/23/20 15:59 1,000 MG Ceftriaxone Sodium (Rocephin) 1 gm 1X ONCE 12/23/20 16:15 12/23/20 16:16 DC 12/23/20 16:32 1 GM Diltiazem HCl (Cardizem 24hr Cd) 240 mg 1X ONCE 12/23/20 15:08 12/23/20 15:09 DC 12/23/20 15:20 240 MG Diltiazem HCl (Cardizem Iv Push) 20 mg 1X ONCE 12/23/20 16:15 12/23/20 16:16 DC 12/23/20 16:31 20 MG Metoprolol Tartrate (Lopressor) 25 mg 1X ONCE 12/23/20 15:15 12/23/20 15:16 DC 12/23/20 15:19 25 MG Sodium Chloride 1,000 ml @ 1,000 mls/hr 1X ONCE 12/23/20 16:15 12/23/20 17:14 DC 12/23/20 16:30 1,000 MLS/HR Allergies: Allergies: Allergies Coded Allergies Type Severity Reaction Last Updated Verified No Known Drug Allergies 11/15/20 No Physical Exam: PE: Constitutional: Well developed, well nourished, no acute distress, non-toxic appearance. Patient was in no apparent distress during physical examination. HENT: Normocephalic, atraumatic, bilateral external ears normal, oropharynx mois t, no oral exudates, nose normal. Eyes: PERRLA, EOMI, conjunctiva normal, no discharge. Neck: Normal range of motion, no tenderness, supple, no stridor. Cardiovascular:Heart rapid irregular rhythm, no murmur to auscultation. Lungs & Thorax: Bilateral breath sounds diminished throughout all lung jama, no other adventitious lung sounds appreciated per auscultation. Abdomen: Bowel sounds normal, soft, no tenderness, no masses, no pulsatile masses. Skin: Warm, dry, no erythema, no rash. Back: No tenderness, no CVA tenderness. Extremities: No tenderness, no cyanosis, no clubbing, ROM intact, no edema. Neurologic: Alert and oriented X 3, normal motor function, normal sensory function, no focal deficits noted. Psychologic: Affect normal, judgement normal, mood normal. Current Patient Data: Labs: Laboratory Tests Test 12/23/20 14:53 White Blood Count 5.2 x10^3/uL (4.0-11.0) Red Blood Count 4.37 x10^6/uL (4.30-5.70) Hemoglobin 14.7 g/dL (13.0-17.5) Hematocrit 42.1 % (39.0-53.0) Mean Corpuscular Volume 96 fL (79-100) Mean Corpuscular Hemoglobin 34 pg (25-35) Mean Corpuscular Hemoglobin Concent 35 g/dL (31-37) Red Cell Distribution Width 12.5 % (11.5-14.5) Platelet Count 144 x10^3/uL (140-400) Neutrophils (%) (Auto) 82 % (31-73) H Lymphocytes (%) (Auto) 11 % (24-48) L Monocytes (%) (Auto) 7 % (0-9) Eosinophils (%) (Auto) 0 % (0-3) Basophils (%) (Auto) 0 % (0-3) Neutrophils # (Auto) 4.3 x10^3/uL (1.8-7.7) Lymphocytes # (Auto) 0.6 x10^3/uL (1.0-4.8) L Monocytes # (Auto) 0.4 x10^3/uL (0.0-1.1) Eosinophils # (Auto) 0.0 x10^3/uL (0.0-0.7) Basophils # (Auto) 0.0 x10^3/uL (0.0-0.2) Sodium Level 137 mmol/L (136-145) Potassium Level 3.4 mmol/L (3.5-5.1) L Chloride Level 100 mmol/L (98-107) Carbon Dioxide Level 23 mmol/L (21-32) Anion Gap 14 (6-14) Blood Urea Nitrogen 22 mg/dL (8-26) Creatinine 1.1 mg/dL (0.7-1.3) Estimated GFR (Cockcroft-Gault) 68.1 BUN/Creatinine Ratio 20 (6-20) Glucose Level 113 mg/dL (70-99) H Lactic Acid Level 1.7 mmol/L (0.4-2.0) Calcium Level 8.3 mg/dL (8.5-10.1) L Magnesium Level 2.0 mg/dL (1.8-2.4) Total Bilirubin 0.6 mg/dL (0.2-1.0) Aspartate Amino Transferase (AST) 89 U/L (15-37) H Alanine Aminotransferase (ALT) 116 U/L (16-63) H Alkaline Phosphatase 67 U/L (46-116) Troponin I Quantitative < 0.017 ng/mL (0.000-0.055) Total Protein 6.5 g/dL (6.4-8.2) Albumin 3.1 g/dL (3.4-5.0) L Albumin/Globulin Ratio 0.9 (1.0-1.7) L Laboratory Tests 12/23/20 14:53 Laboratory Tests 12/23/20 14:53 Vital Signs: Vital Signs Date Time Temp Pulse Resp B/P (MAP) Pulse Ox O2 Delivery O2 Flow Rate FiO2 12/23/20 16:31 176 129/73 12/23/20 14:37 100.0 24 96 Nasal Cannula 2.0 100.0 EKG: EKG: EKG performed at 1444 per ED nursing staff, shows atrial fibrillation with RVR at a heart rate of 162 bpm, QTc interval 0.513, no acute STEMI, no ACS, no acute ischemia appreciated, EKG interpreted by ED attending physician Dr. Swain. Radiology/Procedures: Radiology/Procedures: PATIENT: DANIEL CROSS ACCOUNT: [id number] : 1960 LOCATION: ER AGE: 60 SEX: M EXAM STATUS: REG ER ORD. PHYSICIAN: JOHNY SANTOS APRN REASON: COVID-19 + SHORT OF BREATH AND CHEST PAIN PROCEDURE: CHEST AP ONLY XR CHEST 1V History: Reason: COVID-19 + SHORT OF BREATH AND CHEST PAIN / Spl. Instructions: / History: Comparison: March 07, 2019 Findings: Ill-defined mid and bibasilar opacities. No pleural effusion. No pneumothorax. Portable technique accentuates cardiac size. Impression: 1. Ill-defined mid and bibasilar opacities, may represent atelectasis or infiltrates including viral pneumonia. Electronically signed by: Elliott Yanes DO (12/23/2020 3:30 PM) [id number] DICTATED and SIGNED BY: ELLIOTT YANES DO DATE: 12/23/20 [id number] Course & Med Decision Making: Course & Med Decision Making Pertinent Labs and Imaging studies reviewed. (See chart for details) 60-year-old male, vital signs reviewed, presents emergency department via EMS for shortness of breath and hypoxia. Patient physical examination concerning for pulmonary process, related to patient's complaint of shortness of breath and EKG troponin was initiated in the emergency department along with CBC, CMP, chest x-ray, blood cultures x2, lactic acid. Patient was placed on 2 L O2 for hypoxia to maintain 96 to 97% O2 sat. Patient's lactic acid is of negative concern, patient's chest x-ray concerning for bilateral basilar pneumonia of viral type per house radiologist interpretation, patient's heart rate normalized to a rate of 100 to 110 bpm atrial fibrillation related to treatment of 20 mg IV Cardizem, 240 mg p.o. Cardizem, 25 mg metoprolol. With patient's acute onset of hypoxia with x-ray bibasilar pneumonia findings, patient's primary care physician Dr. Zhou was paged. Dr. Zhou's partner Dr. King return call, reviewed patient case with Dr. King who agreed to admit patient to the telemetry unit. Discussed admission plans with patient who is amenable to be admitted to the telemetry unit. Patient care will be assumed by Dr. King, patient will be admitted to telemetry unit. Fermin Disclaimer: Fermin Disclaimer: This electronic medical record was generated, in whole or in part, using a voice recognition dictation system. Departure Departure Impression: Primary Impression: Hypoxia Additional Impressions: COVID-19 virus infection Pneumonia Qualified Codes: J18.9 - Pneumonia, unspecified organism Disposition: ADMITTED INPT THIS HOSP Admitting Physician: Daniel King (Admit to Dr. King to the telemetry unit) Condition: GUARDED Referrals: PIPPA ZHOU MD (PCP) JOHNY SANTOS STOPPERER ASSEMBLER Dec 23, 2020 17:27
[2020-12-23] MEDS ORDERED: DEXAMETHASONE SOD PHOS 20 MG/5 ML VIAL. IV ONE (17:30)
[2020-12-23] MEDS ORDERED: DEXAMETHASONE SOD PHOS 4 MG/ML VIAL ONE (17:30)
[2020-12-23 17:55] VITALS: BP 95/62
[2020-12-23] MEDS ORDERED: ALBUTEROL SULFATE 2.5 MG/3 ML NEBU. INH PRN (18:15)
[2020-12-23 18:52] VITALS: BP 100/66
--- NOTE | 2020-12-23 19:02 | NUR ---
The patient, DANIEL CROSS, 60 y/o, M admitted by DANIEL WHEELER MD, was given written information regarding hospital policies, unit procedures and contact persons. Patient new order for Cardizem drip, drip was held per order set protocol. Passed on to bradley linebacker crewmember RN, that patient did not meet needs for drip to be started.
[2020-12-23 19:15] VITALS: BP 95/59
[2020-12-23] MEDS: ATORVASTATIN CALCIUM 40 MG TABLET. PO SCH (20:31)
[2020-12-23] MEDS: ALPRAZolam 0.25 MG TABLET PO SCH (20:31)
[2020-12-23] MEDS: buPROPion SR 150 MG TABLET.SA PO SCH (20:31)
[2020-12-23] MEDS: METOPROLOL TART IMMED RELEASE 25 MG TABLET. PO SCH (20:32)
[2020-12-23 23:31] VITALS: BP 116/66
[2020-12-23 23:55] VITALS: BP 117/76
[2020-12-24] VITALS (10 sets, daily range): BP systolic 94–129; BP diastolic 65–88
[2020-12-24] MEDS ORDERED: POTASSIUM CHLORIDE 10 MEQ TABLET.ER. PO SCH (08:00)
[2020-12-24] MEDS: buPROPion SR 150 MG TABLET.SA PO SCH ×2 (08:25→21:48)
[2020-12-24] MEDS: ALPRAZolam 0.25 MG TABLET PO SCH ×2 (08:25→21:48)
[2020-12-24] MEDS: FUROSEMIDE 20 MG TABLET PO SCH (08:25)
[2020-12-24] MEDS: METOPROLOL TART IMMED RELEASE 25 MG TABLET. PO SCH (08:26)
--- NOTE | 2020-12-24 09:00 | PDOC ---
Provider Note Date of Service: DATE: 12/24/20 TIME: 08:57 Provider Note [id number] Justifications for Admission Other Justification DANIEL WHEELER MD Dec 24, 2020 09:00
[2020-12-24] MEDS: RIVAROXABAN 10 MG TABLET. PO SCH (09:49)
--- NOTE | 2020-12-24 10:24 | HP ---
ADMIT DATE: 12/24/2020 CHIEF COMPLAINT: Weakness and fast heart rate. HISTORY OF PRESENT ILLNESS: A 60-year-old white male with previous history of atrial fibrillation and had an ablation 3 years ago and states he has not had atrial fibrillation since then. He was found to be COVID positive about 6 days ago ____ Nursing Care, has been feeling pretty well until he developed palpitations and shortness of breath on the day of admission. He was in atrial fibrillation with RVR and was on IV diltiazem overnight and has done well and is converted back to sinus rhythm at this time. He has not seen a circular saw operator in about 3 years since an ablation was done, but he believes at [facility], the last circular saw operator was Dr. Wilburn. He denies alcohol, tobacco abuse or any other specific symptoms. PAST MEDICAL HISTORY: MEDICATIONS: Listed per the chart including Xarelto, which he says he still takes despite the ablation. SOCIAL HISTORY: Nonsmoker, nondrinker. . Physically active. FAMILY HISTORY: Unremarkable. REVIEW OF SYSTEMS: No other complaints. OBJECTIVE: ENT: All within normal limits. NECK: No masses, nodes or bruits. LUNGS: Few basilar crackles, otherwise clear. CARDIOVASCULAR: Regular rate with some VPCs. ABDOMEN: Benign. EXTREMITIES: Unremarkable. NEUROLOGIC: Physiologic. ASSESSMENT: 1. Atrial fibrillation with rapid ventricular response, resolved with IV diltiazem. May have been precipitated by his COVID positive status. 2. COVID-19, status post 6 days testing appears to be relatively stable at this point. PLAN: P.o. meds for now. Cardiology consultation may need another echo. We will check his thyroid function as well. DANIEL WHEELER MD DR: QUINTEN/dioni JOB#: [id number] / [id number]
--- NOTE | 2020-12-24 11:14 | PDOC2 ---
JIGAR DOSS DIGITAL STRATEGIST SENIOR MANAGER 12/24/20 1113: CARDIAC CONSULT DATE OF CONSULT Date of Consult DATE: 12/24/20 TIME: 10:14 REASON FOR CONSULT Reason for Consult: AFIB RVR REFERRING PHYSICIAN Referring Physician: Fernando SOURCE Source: Chart review, Patient HISTORY OF PRESENT ILLNESS HISTORY OF PRESENT ILLNESS This is a pleasant 60 yo male admitted for complains of palpitations, fall and shortness of breath. Reports that he went to ED Wednesday and was having diarrhea and was tested +for covid-19. His was Positive before him and she is doing OK. His appetite has been decreased but negative for ageusia or anosm ia. He has been doing OK and has not missed his medication. He was given steroids on Wednesday and antibiotics that started with "D". Wednesday he started having some SOA and has been getting worse. He has an oximeter at home and he checked it it was in the 80s. He does not use oxygen at home and has been having nonproductive cough. He also vomited on Wednesday. He has been having chills in the last few days but no recorded fever. Yesterday he felt lightheaded and was having palpitations and passed out and fell but no obvious injuries. He rembered bracing his fall with his hands and then he had a brief lost of consciousness and denies hitting his head on the floor and estimated lost consciousness <1 min. He had an ablation about 3 yrs ago hence he is no longer on amiodarone and taking metoprolol and xarelto. He was started on cardizem drip in ED and has been titrated off. He did have some sharp chest pain but mainly the palpitations that bothered him. Denies any wheezing or leg swelling. He is doing ok with O2 via NC and denies SOA currently. Denies any past VTE and no bleeding issues. PAST MEDICAL HISTORY Past Medical History Cardiovascular: PAFIB (prior cardioversion), CHF, Hyperlipidemia, NICM, HTN Pulmonary: COPD CENTRAL NERVOUS SYSTEM: Other (no pertinent hx) GI: GERD, Other (gastroparesis ) Heme/Onc: No pertinent hx Hepatobiliary: No pertinent hx Psych: Anxiety, depression Rheumatologic: No pertinent hx Infectious disease: No pertinent hx ENT: No pertinent hx Renal/: No pertinent hx Endocrine: No pertinent hx Dermatology: No pertinent hx PAST SURGICAL HISTORY Past Surgical History Appendectomy, Cholecystectomy, Hernia Repair, Tonsillectomy, LHC FAMILY HISTORY Family History noncontributory SOCIAL HISTORY Social History Smoke: Quit (5 years ago) ALCOHOL: occassional Drugs: None Lives: with Family CURRENT MEDICATIONS CURRENT MEDICATIONS Current Medications Medications (Trade) Dose Ordered Sig/Padmini Route PRN Reason Start Time Stop Time Status Last Admin Dose Admin Metoprolol Tartrate (Lopressor) 25 mg 1X ONCE PO 12/23/20 15:15 12/23/20 15:16 DC 12/23/20 15:19 Diltiazem HCl (Cardizem 24hr Cd) 240 mg 1X ONCE PO 12/23/20 15:08 12/23/20 15:09 DC 12/23/20 15:20 Acetaminophen (Tylenol) 1,000 mg 1X ONCE PO 12/23/20 15:45 12/23/20 15:46 DC 12/23/20 15:59 Sodium Chloride 1,000 ml @ 1,000 mls/hr 1X ONCE IV 12/23/20 16:15 12/23/20 17:14 DC 12/23/20 16:30 Ceftriaxone Sodium (Rocephin) 1 gm 1X ONCE IVP 12/23/20 16:15 12/23/20 16:16 DC 12/23/20 16:32 Diltiazem HCl (Cardizem Iv Push) 20 mg 1X ONCE IVP 12/23/20 16:15 12/23/20 16:16 DC 12/23/20 16:31 Dexamethasone Sodium Phosphate (Decadron) 6 mg 1X ONCE IV 12/23/20 17:30 12/23/20 17:31 DC 12/23/20 17:33 Diltiazem HCl 125 mg/Sodium Chloride 125 ml @ 5 mls/hr CONT PRN IV SEE I/O RECORD 12/23/20 18:00 12/24/20 09:08 DC 12/23/20 18:46 Alprazolam (Xanax) 0.25 mg BID PO 12/23/20 21:00 12/24/20 08:25 Bupropion HCl (Wellbutrin Sr) 150 mg BID PO 12/23/20 21:00 12/24/20 08:25 Furosemide (Lasix) 20 mg DAILY PO 12/24/20 09:00 12/24/20 08:25 Metoprolol Tartrate (Lopressor) 25 mg BID PO 12/23/20 21:00 12/24/20 08:26 Potassium Chloride (Klor-Con) 10 meq DAILYWBKFT PO 12/24/20 08:00 12/24/20 09:08 DC 12/24/20 08:25 Rivaroxaban (Xarelto) 20 mg DAILY PO 12/24/20 09:00 12/24/20 09:49 Atorvastatin Calcium (Lipitor) 80 mg QHS PO 12/23/20 21:00 12/23/20 20:31 Diltiazem HCl (Cardizem 24hr Cd) 240 mg DAILY PO 12/24/20 10:00 12/24/20 09:49 ALLERGIES ALLERGIES: Coded Allergies: No Known Drug Allergies (Unverified , 11/15/20) ROS Review of System 14 point ROS evaluated with pertinent positives noted per HPI PHYSICAL EXAM General: Alert, Oriented X3, Cooperative, No acute distress HEENT: Atraumatic, Mucous membr. moist/pink Lungs: Other (diminished) Heart: Other (AFIB) Abdomen: Soft, No tenderness Extremities: No cyanosis, No edema Skin: No breakdown, No significant lesion Neuro: Normal speech, Sensation intact Psych/Mental Status: Mental status NL, Mood NL MUSCULOSKELETAL: Osteoarthritic changes both hands VITALS/I&O VITALS/I&O: Vital Signs Date Time Temp Pulse Resp B/P (MAP) Pulse Ox O2 Delivery O2 Flow Rate FiO2 12/24/20 09:49 76 115/73 12/24/20 08:00 Nasal Cannula 2.0 12/24/20 07:00 95.2 19 95.2 12/23/20 17:03 95 I & O 12/23/20 12/23/20 12/24/20 15:00 23:00 07:00 Intake Total 500 ml 400 ml Output Total 1200 ml Balance 500 ml -800 ml LABS Lab: Laboratory Tests Test 12/23/20 14:53 White Blood Count 5.2 x10^3/uL (4.0-11.0) Red Blood Count 4.37 x10^6/uL (4.30-5.70) Hemoglobin 14.7 g/dL (13.0-17.5) Hematocrit 42.1 % (39.0-53.0) Mean Corpuscular Volume 96 fL (79-100) Mean Corpuscular Hemoglobin 34 pg (25-35) Mean Corpuscular Hemoglobin Concent 35 g/dL (31-37) Red Cell Distribution Width 12.5 % (11.5-14.5) Platelet Count 144 x10^3/uL (140-400) Neutrophils (%) (Auto) 82 % (31-73) H Lymphocytes (%) (Auto) 11 % (24-48) L Monocytes (%) (Auto) 7 % (0-9) Eosinophils (%) (Auto) 0 % (0-3) Basophils (%) (Auto) 0 % (0-3) Neutrophils # (Auto) 4.3 x10^3/uL (1.8-7.7) Lymphocytes # (Auto) 0.6 x10^3/uL (1.0-4.8) L Monocytes # (Auto) 0.4 x10^3/uL (0.0-1.1) Eosinophils # (Auto) 0.0 x10^3/uL (0.0-0.7) Basophils # (Auto) 0.0 x10^3/uL (0.0-0.2) Sodium Level 137 mmol/L (136-145) Potassium Level 3.4 mmol/L (3.5-5.1) L Chloride Level 100 mmol/L (98-107) Carbon Dioxide Level 23 mmol/L (21-32) Anion Gap 14 (6-14) Blood Urea Nitrogen 22 mg/dL (8-26) Creatinine 1.1 mg/dL (0.7-1.3) Estimated GFR (Cockcroft-Gault) 68.1 BUN/Creatinine Ratio 20 (6-20) Glucose Level 113 mg/dL (70-99) H Lactic Acid Level 1.7 mmol/L (0.4-2.0) Calcium Level 8.3 mg/dL (8.5-10.1) L Magnesium Level 2.0 mg/dL (1.8-2.4) Total Bilirubin 0.6 mg/dL (0.2-1.0) Aspartate Amino Transferase (AST) 89 U/L (15-37) H Alanine Aminotransferase (ALT) 116 U/L (16-63) H Alkaline Phosphatase 67 U/L (46-116) Troponin I Quantitative < 0.017 ng/mL (0.000-0.055) Total Protein 6.5 g/dL (6.4-8.2) Albumin 3.1 g/dL (3.4-5.0) L Albumin/Globulin Ratio 0.9 (1.0-1.7) L Laboratory Tests 12/23/20 14:53 Laboratory Tests 12/23/20 14:53 ECHOCARDIOGRAM ECHOCARDIOGRAM <Conclusion> Left ventricle systolic function is low normal. The Ejection Fraction is 45-50%. Mild global hypokinesis. DATE: 03/09/19 1149 <Conclusion> MYESHA The left ventricular systolic function is moderately impaired. The Ejection Fraction is 35-40%. Mild mitral regurgitation. Trace tricuspid regurgitation. There is no evidence of significant pericardial effusion. There is no thrombus noted in the left atrial appendage. DATE: 04/14/19 1623 HEART CATH HEART CATH FINDINGS 1. Hemodynamics: Left ventricular end-diastolic pressure of 9 mmHg. No pullback gradient across the aortic valve. 2. Left ventriculography: Normal left ventricle systolic function with ejection fraction estimated at 50-55%. No significant mitral regurgitation s een. 3. Coronary angiography: a. The left main coronary artery arose from the left sinus of Valsalva, gave rise to the left anterior descending and left circumflex arteries and did not show any significant stenosis. b. The left anterior descending artery did not show any significant stenosis. c. The left circumflex artery did not show any significant stenosis. d. The right coronary artery was a large and dominant vessel arising from the right sinus of Valsalva that did not show any significant stenosis. Conclusion 1. No significant coronary artery disease 2. Normal left ventricle systolic function with ejection fraction estimated at 50-55% Recommendations Medical Therapy DATE: 05/10/17 0857 ASSESSMENT/PLAN ASSESSMENT/PLAN 1. Covid-19 with suspected pneumonia: +Wednesday last week. Spouse has it too. 2. AFIB RVR: Paroxysmal by hx. past ablation. Rate better controlled 3. Syncope: likely due volume depletion and RVR 4. Nontraumatic fall: due to syncope 5. NICM: Prior EF at 35-40% 03/2019. Compensated 6. COPD 7. Chronic mild transaminitis: no known hx of hep C, he does take high dose statin 8. HTN 9. HLP 10. Diarrhea: likely from Covid-19 11. Chronic systolic CHF: compensated Recommendations 1. Covid-19 regimen per PCP 2. Replace K. DC cardizem drip and PO, start on home metoprolol at higher dose. Continue xarelto will check INR and TSH 3. TTE when full recovered from covid-19 4. Would consider amiodarone for rhythm maintenance but would need to ascertain hepatic status, if any past issues. 5. He was suppose to follow up with EP coming up but was noted +for Covid-19. Will obtain record of any recent TTE after 03/2019 and confirm if his EF is better 6. Would hold lasix if GI symptoms continue. TRACEE MORIN MD 12/24/202111: CARDIAC CONSULT ASSESSMENT/PLAN ASSESSMENT/PLAN Agree with COMMERCIAL PROPERTY ADMINISTRATOR's assessment and plan. Patient with history of AF s/p ablation therapy presently with recurrent AF, rate better controlled with CZM gtt - agree with higher dose metoprolol Continue xarelto for stroke prophylaxis Last 2D echo in 2018 showed EF 35-40%, clinically well compensated. We will repeat echo once recovered from Covid PNA If he continues to be atrial fibrillation, we will start antiarrhythmic therapy and plan outpatient cardioversion. Possibly refer to EP for repeat ablation as outpatient. Thank you for your consultation. JIGAR DOSS APRN Dec 24, 2020 11:13 TRACEE MORIN MD Dec 24, 2020 21:12
[2020-12-24 11:37] LABS: CALCIUM 9.2 mg/dL (8.5-10.1); MAGNESIUM 2.4 mg/dL (1.8-2.4); POTASSIUM 3.9 mmol/L (3.5-5.1)
[2020-12-24 11:39] LABS: PROTHROMBIN TIME PATIENT 13.9 SEC (11.7-14.0)
--- NOTE | 2020-12-24 13:40 | NUR ---
SS following for discharge planning. SS reviewed pt chart and discussed with pt RN. Pt is from home with spouse and is currently requiring oxygen at two liters nasal canula. COVID19 positive. Pt switched to PO Cardizem today. Possible discharge to home tomorrow. Pt may need six minute walk prior to discharge. SS will continue to follow for discharge planning.
[2020-12-24] MEDS: POTASSIUM CHLORIDE 10 MEQ TABLET.ER. PO SCH ×2 (16:10→21:49)
[2020-12-24] MEDS: ATORVASTATIN CALCIUM 40 MG TABLET. PO SCH (21:48)
[2020-12-24] MEDS: METOPROLOL TART IMMED RELEASE 50 MG TABLET. PO SCH (21:49)
[2020-12-25] MEDS: PANTOPRAZOLE 40 MG TABLET.DR. PO SCH ×2 (00:15→08:17)
[2020-12-25 02:45] VITALS: BP 117/75
[2020-12-25 07:00] VITALS: BP 112/70
[2020-12-25] MEDS: POTASSIUM CHLORIDE 10 MEQ TABLET.ER. PO SCH ×3 (08:16→21:41)
[2020-12-25] MEDS: ALPRAZolam 0.25 MG TABLET PO SCH ×2 (08:16→21:41)
[2020-12-25] MEDS: METOPROLOL TART IMMED RELEASE 50 MG TABLET. PO SCH ×2 (08:16→21:42)
[2020-12-25] MEDS: buPROPion SR 150 MG TABLET.SA PO SCH ×2 (08:16→21:41)
[2020-12-25] MEDS: RIVAROXABAN 10 MG TABLET. PO SCH (08:17)
[2020-12-25] MEDS: FUROSEMIDE 20 MG TABLET PO SCH (08:17)
[2020-12-25] MEDS: ANTI-COAG MONITOR BY PHARMACY. MC PRN (08:35)
--- NOTE | 2020-12-25 09:07 | PDOC ---
Provider Note Date of Service: DATE: 12/25/20 TIME: 09:06 Provider Note still af , rate 110-130, feels ok, O2 ok- tsh ok, repeat TAs pending re high on admit/ i held ator for now, - cont per rutledge trial of amiodarone next Justifications for Admission Other Justification DANIEL WHEELER MD Dec 25, 2020 09:07
[2020-12-25 10:11] LABS: ALBUMIN/GLOBULIN RATIO 0.8 (1.0-1.7); CALCIUM 8.8 mg/dL (8.5-10.1); POTASSIUM 3.6 mmol/L (3.5-5.1); TOTAL BILIRUBIN 0.7 mg/dL (0.2-1.0); TOTAL PROTEIN 6.6 g/dL (6.4-8.2)
[2020-12-25] MEDS ORDERED: DIGOXIN IV 500 MCG/2 ML AMPUL. IV ONE (10:45)
[2020-12-25 10:47] LABS: CHOLESTEROL/HDL RATIO 2.6
[2020-12-25 11:00] VITALS: BP 100/60
--- NOTE | 2020-12-25 11:43 | NUR ---
SS following up with discharge planning. SS reviewed pt chart and discussed with pt RN. Pt is currently requiring oxygen at two liters nasal canula. Possible discharge to home tomorrow per RN due to med adjustments. Discharge plan is to home when medically ready. Probable six minute walk needed prior to discharge. SS will continue to follow for discharge planning.
--- NOTE | 2020-12-25 11:51 | EKG ---
[facility] [address] [place] [address] Test Date: 2020-12-25 Test Time: 11:41:26 Pat Name: DANIEL CROSS Department: Room: 248 1 Gender: M Digital Computer Systems Analyst: BRIAN : 1960 Requested By: JIGAR DOSS Order Number: [id number] Reading MD: Measurements Intervals [place] Rate: 96 P: ID: QRS: 93 QRSD: 94 T: 75 QT: 370 QTc: 474 Interpretive Statements IRREGULAR RHYTHM, NO P-WAVE FOUND RIGHTWARD AXIS T ABNORMALITY IN ANTEROSEPTAL LEADS ABNORMAL ECG RI6.02 Compared to ECG 12/23/2020 14:44:04 T-wave abnormality now present
--- NOTE | 2020-12-25 12:44 | PDOC ---
JIGAR DOSS WATCH DIAL PRINTER 12/25/20 1244: CARDIO Progress Notes Date and Time Date of Service 12/25/2020 Time of Evaluation 0920 Subjective Subjective: No Chest Pain, No shortness of breath, No Palpitations Vitals Vitals Vital Signs Date Time Temp Pulse Resp B/P (MAP) Pulse Ox O2 Delivery O2 Flow Rate FiO2 12/25/20 11:05 110 112/70 12/25/20 11:00 98.0 24 97 Nasal Cannula 2.0 98.0 Weight Weight [ ] Input and Output Intake and Output Intake and Output 12/25/20 07:00 Intake Total 700 ml Output Total 850 ml Balance -150 ml Intake Oral 700 ml Output Urine Total 850 ml # Bowel Movements 1 Laboratory Labs Laboratory Tests Test 12/25/20 09:25 Sodium Level 134 mmol/L (136-145) Potassium Level 3.6 mmol/L (3.5-5.1) Chloride Level 98 mmol/L (98-107) Carbon Dioxide Level 23 mmol/L (21-32) Anion Gap 13 (6-14) Blood Urea Nitrogen 23 mg/dL (8-26) Creatinine 1.0 mg/dL (0.7-1.3) Estimated GFR (Cockcroft-Gault) 76.0 BUN/Creatinine Ratio 23 (6-20) Glucose Level 118 mg/dL (70-99) Calcium Level 8.8 mg/dL (8.5-10.1) Total Bilirubin 0.7 mg/dL (0.2-1.0) Aspartate Amino Transf (AST/SGOT) 102 U/L (15-37) Alanine Aminotransferase (ALT/SGPT) 141 U/L (16-63) Alkaline Phosphatase 72 U/L (46-116) Total Protein 6.6 g/dL (6.4-8.2) Albumin 3.0 g/dL (3.4-5.0) Albumin/Globulin Ratio 0.8 (1.0-1.7) Triglycerides Level 105 mg/dL (0-150) Cholesterol Level 74 mg/dL (0-200) LDL Cholesterol, Calculated 24 mg/dL (0-100) VLDL Cholesterol, Calculated 21 mg/dL (0-40) Non-HDL Cholesterol Calculated 45 mg/dL (0-129) HDL Cholesterol 29 mg/dL (40-60) Cholesterol/HDL Ratio 2.6 Microbiology Micro Microbiology 12/23/20 Blood Culture - Preliminary, Resulted NO GROWTH AFTER 1 DAY Physical Exam HEENT: Neck Supple W Full Motion Chest: Symmetric LUNGS: Other (diminished) Heart: irregularly irregular (AFIB 100-120s) Abdomen: Soft N/T Extremities: No Edema Neurology: alert, oriented, follow commands Assessment Assessment 1. Covid-19 with suspected pneumonia: +Wednesday last week. Spouse has it too. 2. AFIB RVR: Paroxysmal by hx. past ablation. Rate 100-120 3. Syncope: likely due volume depletion and RVR 4. Nontraumatic fall: due to syncope 5. NICM: Prior EF at 35-40% 03/2019. Compensated 6. COPD 7. Chronic mild transaminitis: no known hx of hep C, he does take high dose statin 8. HTN 9. HLP 10. Diarrhea: likely from Covid-19 11. Chronic systolic CHF: compensated Recommendations 1. Covid-19 regimen per PCP 2. Continue higher dose home metoprolol. Would not be able to titrate further. Digoxin x1. Continue xarelto will check INR and TSH 3. TTE when full recovered from covid-19. Also will need liver w/u including ultrasound as an outpt, Defer to PCP 4. Would consider amiodarone for rhythm maintenance but would need to ascertain hepatic status, if any past issues. 5. He was suppose to follow up with EP coming up but was noted +for Covid-19. Awaiting any 2019 TTE record and confirm if his EF is better 6. Would hold lasix if GI symptoms continue. 7. Will decrease statin dose from 80 to 20 mg daily Justicifation of Admission Dx: Justifications for Admission: Justification of Admission Dx: Yes TRACEE MORIN MD 12/25/20 2206: CARDIO Progress Notes Assessment Assessment Agree with ON AIR ANNOUNCER's assessment and plan. Patient with history of AF s/p ablation therapy presently with recurrent AF, rate better controlled. Continue xarelto for stroke prophylaxis Last 2D echo in 2018 showed EF 35-40%, clinically well compensated. We will repeat echo once recovered from Covid PNA If he continues to be atrial fibrillation, we will start antiarrhythmic therapy and plan outpatient cardioversion. Plan outpatient referral to EP for repeat ablation JIGAR DOSS APRN Dec 25, 2020 12:44 TRACEE MORIN MD Dec 25, 2020 22:06
[2020-12-25 15:00] VITALS: BP 111/62
[2020-12-25] MEDS ORDERED: METOPROLOL IV PUSH 5 MG/5 ML VIAL. IVP ONE (17:30)
[2020-12-25] MEDS ORDERED: NITROGLYCERIN SUBLINGUAL 0.4 MG BOTTLE OF 25. SL PRN ×2 (17:30→18:00)
--- NOTE | 2020-12-25 18:31 | EKG ---
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
[2020-12-25 19:48] VITALS: BP 105/68
[2020-12-25] MEDS: ATORVASTATIN CALCIUM 20 MG TABLET PO SCH (21:41)
[2020-12-25 22:34] VITALS: BP 116/69
[2020-12-26 02:37] VITALS: BP 102/68
[2020-12-26] MEDS ORDERED: SODIUM CHLORIDE 0.65% NASAL SPRAY 45ML BOTTLE. NS PRN (06:30)
[2020-12-26 07:00] VITALS: BP 124/72
[2020-12-26] MEDS: PANTOPRAZOLE 40 MG TABLET.DR. PO SCH (08:20)
[2020-12-26] MEDS: FUROSEMIDE 20 MG TABLET PO SCH (08:21)
[2020-12-26] MEDS: POTASSIUM CHLORIDE 10 MEQ TABLET.ER. PO SCH ×3 (08:21→19:52)
[2020-12-26] MEDS: ALPRAZolam 0.25 MG TABLET PO SCH ×2 (08:22→19:48)
[2020-12-26] MEDS: buPROPion SR 150 MG TABLET.SA PO SCH ×2 (08:22→19:48)
[2020-12-26] MEDS: RIVAROXABAN 10 MG TABLET. PO SCH (08:22)
[2020-12-26] MEDS: METOPROLOL TART IMMED RELEASE 50 MG TABLET. PO SCH ×2 (08:22→19:49)
--- NOTE | 2020-12-26 09:03 | PDOC ---
Provider Note Date of Service: DATE: 12/26/20 TIME: 09:06 Provider Note status same, af, variable/ high rate despite meds, TAs were same, could be covid, but also NAFLD, atorvastatin- likely will need amio trial next Justifications for Admission Other Justification DANIEL WHEELER MD Dec 26, 2020 09:03
[2020-12-26] MEDS: DIGOXIN 125 MCG TABLET. PO SCH (10:51)
[2020-12-26 10:57] VITALS: BP 124/72
[2020-12-26] MEDS: ANTI-COAG MONITOR BY PHARMACY. MC PRN (11:26)
[2020-12-26] MEDS ORDERED: ALBUTEROL SULFATE 2.5 MG/3 ML NEBU. INH PRN (11:26)
--- NOTE | 2020-12-26 12:35 | PDOC ---
JIGAR DOSS TRIAL CONSULTANT 12/26/20 1235: CARDIO Progress Notes Date and Time Date of Service 12/26/2020 Time of Evaluation 1040 Subjective Subjective: No Chest Pain, No shortness of breath, No Palpitations Vitals Vitals Vital Signs Date Time Temp Pulse Resp B/P (MAP) Pulse Ox O2 Delivery O2 Flow Rate FiO2 12/26/20 10:57 97.6 124 20 124/72 (89) 94 Nasal Cannula 4.0 97.6 Weight Weight [ ] Input and Output Intake and Output Intake and Output 12/26/20 07:00 Intake Total 480 ml Output Total 1300 ml Balance -820 ml Intake Oral 480 ml Output Urine Total 1300 ml Laboratory Labs Laboratory Tests Test 12/25/20 18:45 Troponin I Quantitative < 0.017 ng/mL (0.000-0.055) Microbiology Micro Microbiology 12/23/20 Blood Culture - Preliminary, Resulted NO GROWTH AFTER 2 DAYS Physical Exam HEENT: Neck Supple W Full Motion Chest: Symmetric LUNGS: Other (diminished) Heart: irregularly irregular (AFIB) Abdomen: Soft N/T Extremities: No Edema Neurology: alert, oriented, follow commands Assessment Assessment 1. Covid-19 with suspected pneumonia: +Wednesday last week. Spouse has it too. 2. AFIB RVR: Paroxysmal by hx. past ablation. Rate better 3. Syncope: likely due volume depletion and RVR 4. Nontraumatic fall: due to syncope 5. NICM: Prior EF at 35-40% 03/2019. Compensated 6. COPD 7. Chronic mild transaminitis: no known hx of hep C, he does take high dose statin 8. HTN: controlled 9. HLP 10. Diarrhea: none further likely from Covid-19 11. Chronic systolic CHF: compensated Recommendations 1. Covid-19 regimen per PCP 2. Continue higher dose home metoprolol. Would not be able to titrate further. Start on daily digoxin.. Continue xarelto for stroke prevention 3. TTE when full recovered from covid-19. So far no noted TTE on 2019 or late 2018 Also will need liver w/u including ultrasound as an outpt, Defer to PCP 4. Would consider amiodarone for rhythm maintenance but would need to ascertain hepatic status, if any past issues. At this time would continue rate control. 5. He was suppose to follow up with EP coming up but was noted +for Covid-19. Follow up with EP as an outpt. for potential repeat ablation 6. Would hold lasix if GI symptoms continue. 7. Will decrease statin dose from 80 to 20 mg daily Justicifation of Admission Dx: Justifications for Admission: Justification of Admission Dx: Yes TRACEE MORIN MD 12/26/202026: CARDIO Progress Notes Assessment Assessment Agree with ACCESS DATABASE DEVELOPER's assessment and plan. Patient with history of AF s/p ablation therapy presently with recurrent AF, rate better but slightly elevated - agree with digoxin for better rate control Continue xarelto for stroke prophylaxis Last 2D echo in 2018 showed EF 35-40%, clinically well compensated. We will repeat echo once recovered from Covid PNA Plan outpatient referral to EP for repeat ablation JIGAR DOSS APRN Dec 26, 2020 12:35 TRACEE MORIN MD Dec 26, 2020 20:27
--- NOTE | 2020-12-26 12:41 | NUR ---
SS following up with discharge planning. SS reviewed pt chart and discussed with pt RN. Pt is currently requiring oxygen at four liters nasal canula. COVID19 positive. Pt has no home oxygen. Per RN, pt in RVR. Cardiology following and medications being adjusted. Probable need for six minute walk when ready for discharge. SS will continue to follow for discharge planning.
--- NOTE | 2020-12-26 14:45 | RAD ---
EXAM: CHEST ONE VIEW. HISTORY: Dyspnea. COMPARISON: 12/23/2020. FINDINGS: A frontal view of the chest is obtained. There are bilateral basilar predominant interstitial opacities. These appear increased since the prio r study. There is no pneumothorax or pleural effusion. The heart is not enlarged. IMPRESSION: 1. Increased bibasilar infiltrates. Correlate for atypical pneumonia or mild pulmonary edema. Electronically signed by: Melody Dee MD (12/26/2020 2:42 PM) [id number]
[2020-12-26 15:00] VITALS: BP 105/76
[2020-12-26 19:03] VITALS: BP 121/75
[2020-12-26] MEDS: ATORVASTATIN CALCIUM 20 MG TABLET PO SCH (19:49)
[2020-12-26 22:23] VITALS: BP 108/76
[2020-12-27 02:12] VITALS: BP 109/77
[2020-12-27 07:00] VITALS: BP 121/80
--- NOTE | 2020-12-27 07:40 | PDOC ---
SUBJECTIVE Subjective Slowly improving apart from continued RVR. No other new concerns. OBJECTIVE Objective Reviewed. Vital Signs Vital Signs Date Time Temp Pulse Resp B/P (MAP) Pulse Ox O2 Delivery O2 Flow Rate FiO2 12/27/20 02:12 99.0 112 20 109/77 (88) 95 Nasal Cannula 2.0 99.0 12/26/20 22:23 99.3 131 20 108/76 (87) 92 Nasal Cannula 2.0 99.3 12/26/20 20:10 Nasal Cannula 4.0 12/26/20 19:49 125 121/75 12/26/20 19:03 98.1 125 20 121/75 (90) 94 Nasal Cannula 2.0 98.1 12/26/20 15:00 98.1 122 20 105/76 (86) 93 Nasal Cannula 2.0 98.1 12/26/20 10:57 97.6 124 20 124/72 (89) 94 Nasal Cannula 4.0 97.6 12/26/20 10:51 103 124/72 12/26/20 08:55 95 Nasal Cannula 5.0 12/26/20 08:22 113 124/72 12/26/20 08:00 Nasal Cannula 4.0 I & O Intake and Output 12/27/20 07:00 Intake Total 1080 ml Output Total 1000 ml Balance 80 ml Intake Oral 1080 ml Output Urine Total 1000 ml # Bowel Movements 1 PHYSICAL EXAM Physical Exam Alert, oriented Irregularly irregular rhythm, tachycardic Clear to auscultation bilaterally No edema in b/l LEs Calm, cooperative ASSESSMENT/PLAN Assessment/Plan Acute hypoxic respiratory failure 2/2 COVID pneumonia Afib w/ RVR, not yet controlled Nonischemic Cardiomyopathy, not in acute exacerbation, will need outpt repeat Echo COPD Transaminitis, uncertain etiology, may be statin related. LDL 24 on high dose statin. Repeat lab and consider holding statin for a time given very low LDL HTN HLD, LDL 24 Cards following, added Dig 12/26 Awaiting rate control Repeat labs today Will need walking O2 prior to dc when ready Justifications for Admission Other Justification TRUSTY,PIPPA Mejias MD Dec 27, 2020 07:40
[2020-12-27] MEDS: PANTOPRAZOLE 40 MG TABLET.DR. PO SCH (08:06)
[2020-12-27] MEDS: RIVAROXABAN 10 MG TABLET. PO SCH (08:07)
[2020-12-27] MEDS: METOPROLOL TART IMMED RELEASE 50 MG TABLET. PO SCH (08:07)
[2020-12-27] MEDS: POTASSIUM CHLORIDE 10 MEQ TABLET.ER. PO SCH ×3 (08:07→20:45)
[2020-12-27] MEDS: buPROPion SR 150 MG TABLET.SA PO SCH ×2 (08:07→20:44)
[2020-12-27] MEDS: DIGOXIN 125 MCG TABLET. PO SCH (08:08)
[2020-12-27] MEDS: FUROSEMIDE 20 MG TABLET PO SCH (08:08)
[2020-12-27] MEDS: ALPRAZolam 0.25 MG TABLET PO SCH ×2 (08:08→20:44)
--- NOTE | 2020-12-27 08:48 | PDOC ---
JIGAR DOSS AUTOMOBILE INSURANCE CLAIM EXAMINER 12/27/20 0848: CARDIO Progress Notes Date and Time Date of Service 12/27/2020 Time of Evaluation 1040 Subjective Subjective: No Chest Pain, No shortness of breath, No Palpitations Vitals Vitals Vital Signs Date Time Temp Pulse Resp B/P (MAP) Pulse Ox O2 Delivery O2 Flow Rate FiO2 12/27/20 08:08 115 121/80 12/27/20 02:12 99.0 20 95 Nasal Cannula 2.0 99.0 Weight Weight [ ] Input and Output Intake and Output Intake and Output 12/27/20 07:00 Intake Total 1080 ml Output Total 1000 ml Balance 80 ml Intake Oral 1080 ml Output Urine Total 1000 ml # Bowel Movements 1 Microbiology Micro Microbiology 12/23/20 Blood Culture - Preliminary, Resulted NO GROWTH AFTER 3 DAYS Physical Exam HEENT: Neck Supple W Full Motion Chest: Symmetric LUNGS: Other (diminished) Heart: irregularly irregular (AFIB) Abdomen: Soft N/T Extremities: No Edema Neurology: alert, oriented, follow commands Assessment Assessment 1. Covid- with suspected pneumonia: +Wednesday last week. Spouse has it too. 2. AFIB RVR: Paroxysmal by hx. past ablation. Rate 100-120s 3. Syncope: likely due volume depletion and RVR 4. Nontraumatic fall: due to syncope 5. NICM: Prior EF at 35-40% 03/2019. Compensated. Limited TTE noted EF at 55% 6. COPD 7. Chronic mild transaminitis: no known hx of hep C, he does take high dose statin 8. HTN: controlled 9. HLP 10. Diarrhea: none further likely from Covid-19 11. Chronic diastolic CHF: compensated Recommendations 1. Covid-19 regimen per PCP 2. Poor rate control despite digoxin and metoprolol. Unable to uptitrate metoprolol nor add cardizem due to BP intolerance. DC digoxin and metoprolol and will start on sotalol. EKG daily. 3. He is adequately anticoagulated.with xarelto.QTc is 436. Unable to start on amiodarone due to transaminitis of unclear etiology which high dose statin could be contributing as well hence would not be able to start on amiodarone. 4. Will hold statin for now, reeval LFTs and lipids as an outpt and consider further hepatic w/u such as hepatitis panel and also liver sono as an outpt. 5. He was suppose to follow up with EP coming up but was noted +for Covid-19. Follow up with EP as an outpt. for potential repeat ablation if sotalol is unsuccessful. 6. Would hold lasix if GI symptoms continue. 7. Anticipate DC in 2-3 days. Justicifation of Admission Dx: Justifications for Admission: Justification of Admission Dx: Yes TRACEE MORIN MD 12/28/20 0912: CARDIO Progress Notes Assessment Assessment Patient seen 12/27/20. Agree with DISABILITY ADVOCATE's assessment and plan. Atrial fibrillation rate continues to be elevated. Limited 2D echo showed improved LVEF 55%. Agree with stopping digoxin and metoprolol and start sotalol with close monitoring of EKG for QTc interval. Continue Xarelto for stroke prophylaxis. Continue current treatment for Covid pneumonia JIGAR DOSS APRN Dec 27, 2020 08:48 TRACEE MORIN MD Dec 28, 2020 09:12
[2020-12-27 09:54] LABS: CALCIUM 9.1 mg/dL (8.5-10.1); POTASSIUM 3.7 mmol/L (3.5-5.1)
[2020-12-27 10:00] LABS: ALBUMIN 2.8 g/dL (3.4-5.0); DIRECT BILIRUBIN 0.4 mg/dL (0.0-0.2); TOTAL BILIRUBIN 0.9 mg/dL (0.2-1.0); TOTAL PROTEIN 6.7 g/dL (6.4-8.2)
[2020-12-27 10:15] LABS: BASO % 0 % (0-3); EOS % 1 % (0-3); HEMATOCRIT 39.7 % (39.0-53.0); HEMOGLOBIN 14.1 g/dL (13.0-17.5); LYMPH # 0.6 x10^3/uL (1.0-4.8); LYMPH % 9 % (24-48); MEAN CORPUSCULAR HEMOGLOBIN 34 pg (25-35); MEAN CORPUSCULAR HGB CONC 35 g/dL (31-37); MEAN CORPUSCULAR VOLUME 95 fL (79-100); MONO # 0.6 x10^3/uL (0.0-1.1); MONO % 9 % (0-9); NEUT # 5.8 x10^3/uL (1.8-7.7); NEUT % 82 % (31-73); PLATELET COUNT 248 x10^3/uL (140-400); RED CELL DISTRIBUTION WIDTH 12.3 % (11.5-14.5); WHITE BLOOD COUNT 7.1 x10^3/uL (4.0-11.0)
[2020-12-27 11:00] VITALS: BP 101/57
[2020-12-27] MEDS: ANTI-COAG MONITOR BY PHARMACY. MC PRN (11:06)
--- NOTE | 2020-12-27 11:52 | NUR ---
SS following up with discharge planning. SS reviewed pt chart and discussed with pt RN. Pt is currently requiring oxygen via nasal canula. COVID19 positive. Pt has no home oxygen. Per RN, pt still in RVR. Cardiology following and medications being adjusted. Probable need for six minute walk when ready for discharge. SS will continue to follow for discharge planning.
[2020-12-27] MEDS ORDERED: DIGOXIN IV 500 MCG/2 ML AMPUL. IV ONE (12:30)
--- NOTE | 2020-12-27 14:41 | EKG ---
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
[2020-12-27 15:00] VITALS: BP 124/78
--- NOTE | 2020-12-27 16:09 | CARD ---
MR#: [id number] Date of Study: 12/27/2020 Ordering Physician: JIGAR DOSS, Referring Physician: JIGAR DOSS Tech: Malathi Spring RDCS APPROVED REPORT EXAM: Two-dimensional and M-mode echocardiogram with Doppler and color Doppler. Other Information Quality : Technically LimitedHR: 123bpm Rhythm : Atrial Fibrillation INDICATION Atrial Fibrillation Hypertension/HCVD RISK FACTORS Hypertension Obesity LEFT VENTRICLE Limited echo for LV function. The Left Ventricle is borderline dilated. The left ventricular wall th ickness appears normal. The left ventricular systolic function is normal. The ejection fraction is 50 to 55%. GREAT VESSELS Not imaged PERICARDIAL EFFUSION There appears to be a trace to mild pericardial effusion with no hemodynamic compromise. Critical Notification Critical Value: No <Conclusion> Limited echo for LV function. The Left Ventricle is borderline dilated. The left ventricular systolic function is normal. The ejection fraction is 50 to 55%. There appears to be a trace to mild pericardial effusion with no hemodynamic compromise. Signed by : Priyank Mcmanus MD Electronically Approved : 12/27/2020 16:09:27
[2020-12-27 19:00] VITALS: BP 116/72
[2020-12-27] MEDS: SOTALOL 80 MG TABLET. PO SCH (20:45)
[2020-12-27 22:46] VITALS: BP 149/87
[2020-12-28 02:08] VITALS: BP 135/72
[2020-12-28] MEDS: METOPROLOL IV PUSH 5 MG/5 ML VIAL. IVP PRN ×2 (06:25→12:03)
[2020-12-28 07:34] VITALS: BP 116/69
[2020-12-28] MEDS: ANTI-COAG MONITOR BY PHARMACY. MC PRN (08:07)
[2020-12-28] MEDS: buPROPion SR 150 MG TABLET.SA PO SCH ×2 (08:34→19:59)
[2020-12-28] MEDS: PANTOPRAZOLE 40 MG TABLET.DR. PO SCH (08:34)
[2020-12-28] MEDS: POTASSIUM CHLORIDE 10 MEQ TABLET.ER. PO SCH ×3 (08:34→19:59)
[2020-12-28] MEDS: SOTALOL 80 MG TABLET. PO SCH ×2 (08:35→19:59)
[2020-12-28] MEDS: ALPRAZolam 0.25 MG TABLET PO SCH ×2 (08:35→19:59)
[2020-12-28] MEDS: RIVAROXABAN 10 MG TABLET. PO SCH (08:35)
[2020-12-28] MEDS: FUROSEMIDE 20 MG TABLET PO SCH (08:35)
[2020-12-28] MEDS ORDERED: DIGOXIN 125 MCG TABLET. PO SCH (09:00)
[2020-12-28 11:15] VITALS: BP 122/64
--- NOTE | 2020-12-28 13:06 | PDOC ---
PROGRESS NOTES Date of Service: DATE: 12/28/20 TIME: 13:03 Subjective Subjective No new complaints overnight Objective Objective Vital Signs Date Time Temp Pulse Resp B/P (MAP) Pulse Ox O2 Delivery O2 Flow Rate FiO2 12/28/20 12:03 122 122/64 12/28/20 11:15 98.3 22 95 Nasal Cannula 4.0 98.3 Intake and Output 12/28/20 07:00 Intake Total 660 ml Output Total 900 ml Balance -240 ml Intake Oral 660 ml Output Urine Total 900 ml Physical Exam Abdomen: Soft, No tenderness Heart: Other (AFIB) Extremities: No cyanosis, No edema General: Alert, No acute distress HEENT: Atraumatic Lungs: Other (diminished) Neuro: Normal speech Psych/Mental Status: Mood NL Assessment Assessment 1. Covid-19 pneumonia: Treat per primary team 2. AFIB RVR: s/p ablation in the past with recurrence. Heart rate better controlled. He is tolerating sotalol well. QTc interval within normal limits. We will continue to monitor. Continue Xarelto for stroke prophylaxis. 3. Syncope: likely due volume depletion and RVR 4. Nontraumatic fall: due to syncope 5. NICM: Prior EF at 35-40% 03/2019. Compensated. Limited TTE noted EF at 55% 6. COPD 7. Chronic mild transaminitis: 8. HTN: controlled 9. HLP, statins on hold 10. Diarrhea: none further likely from Covid-19 11. Chronic diastolic CHF: compensated Plan Plan of Care Problems Medical Problems: (1) COVID-19 virus infection Status: Acute (2) Hypoxia Status: Acute (3) Pneumonia Status: Acute Comment Review of Relevant I have reviewed the following items rafael (where applicable) has been applied. Labs Microbiology 12/23/20 Blood Culture - Preliminary, Resulted NO GROWTH AFTER 4 DAYS Medications Current Medications Digoxin (Lanoxin) 250 mcg DAILY PO ; Start 12/28/20 at 09:00; Stop 12/27/20 at 16:16; Status DC Metoprolol Tartrate (Lopressor Vial) 5 mg PRN Q6HRS PRN IVP SEE COMMENTS Last administered on 12/28/20at 12:03; Start 12/27/20 at 16:15 Sotalol HCl (Betapace) 80 mg BID PO Last administered on 12/28/20at 08:35; Start 12/27/20 at 21:00 Vitals/I & O Vital Sign - Last 24 Hours 12/27/20 12/27/20 12/27/20 12/27/20 13:12 15:00 19:00 20:00 Temp 99.0 98.9 99.0 98.9 Pulse 121 109 128 Resp B/P (MAP) 124/78 (93) 116/72 (87) Pulse Ox 92 96 O2 Delivery Nasal Cannula Nasal Cannula Nasal Cannula O2 Flow Rate 2.0 4.0 4.0 12/27/20 12/27/20 12/28/20 12/28/20 20:45 22:46 02:08 06:25 Temp 99.9 99.1 99.9 99.1 Pulse 128 110 112 138 Resp B/P (MAP) 116/72 149/87 (107) 135/72 (93) 135/72 Pulse Ox 96 96 O2 Delivery Nasal Cannula Nasal Cannula O2 Flow Rate 4.0 4.0 12/28/20 12/28/20 12/28/20 12/28/20 07:30 07:34 08:35 11:15 Temp 98.6 98.3 98.6 98.3 Pulse 110 110 122 Resp B/P (MAP) 116/69 (85) 116/69 122/64 (83) Pulse Ox 96 95 O2 Delivery Nasal Cannula Nasal Cannula Nasal Cannula O2 Flow Rate 4.0 4.0 4.0 12/28/20 12:03 Pulse 122 B/P (MAP) 122/64 Intake and Output 12/27/20 12/27/20 12/28/20 15:00 23:00 07:00 Intake Total 360 ml 100 ml 200 ml Output Total 600 ml 300 ml Balance -240 ml -200 ml 200 ml TRACEE MORIN MD Dec 28, 2020 13:06
[2020-12-28 14:33] VITALS: BP 110/71
--- NOTE | 2020-12-28 14:37 | EKG ---
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
[2020-12-28] MEDS: ACETAMINOPHEN 325 MG TABLET. PO PRN (17:06)
--- NOTE | 2020-12-28 17:51 | PN ---
DATE: 12/28/2020 ROOM: 248. SUBJECTIVE: This 60-year-old white male remains hospitalized with AFib rapid ventricular response. His heart rate is slowed. He is not having as many episodes of problems, but still not completely controlled. Cardiology is on board adjusting medicines for the same. He remains on 4 liters per nasal cannula oxygen with a chest x-ray consistent with COVID pneumonia and being 11 days status post positive test for COVID. OBJECTIVE: VITAL SIGNS: Stable. He is afebrile. He remains on 4 liters per nasal cannula of oxygen. CHEST: Sounds essentially clear. HEART: Irregularly irregular with rate of 120. ABDOMEN: Benign. EXTREMITIES: Within normal limits. He denies any serious concerns at any time except for when his heart feels like it is racing. IMPRESSION: 1. Acute hypoxic respiratory failure secondary to COVID pneumonia. 2. Atrial fibrillation with rapid ventricular response, not yet controlled. 3. History of nonischemic cardiomyopathy. 4. Chronic obstructive pulmonary disease. 5. Transaminitis. 6. Hypertension. PLAN: Continue medication adjustment from Cardiology for control of the rhythm and supportive care as far as the COVID goes. SELVIN BECKWITH MD DR: PAPO/dioni JOB#: [id number] / [id number]
[2020-12-28 19:30] VITALS: BP 113/78
[2020-12-28 22:35] VITALS: BP 118/72
[2020-12-29] MEDS: METOPROLOL IV PUSH 5 MG/5 ML VIAL. IVP PRN (00:12)
[2020-12-29 02:47] VITALS: BP 140/81
[2020-12-29 07:55] VITALS: BP 110/75
[2020-12-29] MEDS: PANTOPRAZOLE 40 MG TABLET.DR. PO SCH (08:59)
[2020-12-29] MEDS: RIVAROXABAN 10 MG TABLET. PO SCH (08:59)
[2020-12-29] MEDS: POTASSIUM CHLORIDE 10 MEQ TABLET.ER. PO SCH ×3 (08:59→21:03)
--- NOTE | 2020-12-29 08:59 | EKG ---
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
[2020-12-29] MEDS: SOTALOL 80 MG TABLET. PO SCH ×2 (09:00→21:04)
[2020-12-29] MEDS: FUROSEMIDE 20 MG TABLET PO SCH (09:00)
[2020-12-29] MEDS: ALPRAZolam 0.25 MG TABLET PO SCH ×2 (09:00→21:03)
[2020-12-29] MEDS: buPROPion SR 150 MG TABLET.SA PO SCH ×2 (09:00→21:03)
[2020-12-29] MEDS: ACETAMINOPHEN 325 MG TABLET. PO PRN (09:10)
--- NOTE | 2020-12-29 10:32 | PN ---
DATE: 12/29/2020 LOCATION: Room 248. SUBJECTIVE: This is a 60-year-old white male who remains hospitalized with atrial fibrillation with a rapid ventricular response. Heart rate is slowed, but he is still having some episodes of breakthrough. He remains on 4 liters per nasal cannula oxygen for COVID-19 with a chest x-ray consistent with pneumonia. He is currently 12 days status post testing positive for COVID. OBJECTIVE: VITAL SIGNS: Stable. He is afebrile. He remains on 4 liters per nasal cannula oxygen. CHEST: Clear. HEART: Irregularly irregular with rate of about approximately 100 while I am seeing him this morning. ABDOMEN: Benign. EXTREMITIES: Within normal limits. IMPRESSION: 1. Acute hypoxic respiratory failure secondary to COVID pneumonia. 2. Atrial fibrillation with rapid ventricular response with medication adjustment, going under control. 3. History of chronic obstructive pulmonary disease. 4. History of nonischemic cardiomyopathy. 5. Transaminitis. 6. Hypertension. PLAN: Continue present supportive care with medication adjustment per Cardiology. He relates to me that oxygen is not part of his home environment normally, so this is all related to COVID and he may likely need to be dismissed on O2 at the time of discharge. SELVIN BECKWITH MD DR: PAPO/dioni JOB#: [id number] / [id number]
--- NOTE | 2020-12-29 10:42 | PDOC ---
PROGRESS NOTES Date of Service: DATE: 12/29/20 TIME: 10:42 Subjective Subjective Comfortable without any new complaints on 4 L of oxygen per nasal cannula Objective Objective Vital Signs Date Time Temp Pulse Resp B/P (MAP) Pulse Ox O2 Delivery O2 Flow Rate FiO2 12/29/20 09:00 95 110/75 12/29/20 07:55 98.2 18 96 Nasal Cannula 4.0 98.2 Intake and Output 12/29/20 07:00 Intake Total 880 ml Output Total 1200 ml Balance -320 ml Intake Oral 880 ml Output Urine Total 1200 ml # Voids 1 Physical Exam Abdomen: Soft, No tenderness Heart: Other (AFIB) Extremities: No cyanosis, No edema General: Alert, No acute distress HEENT: Atraumatic Lungs: Other (diminished) Neuro: Normal speech Psych/Mental Status: Mood NL Assessment Assessment 1. Covid-19 pneumonia: Treat per primary team 2. AFIB RVR: s/p ablation in the past with recurrence. Heart rate better controlled but still slightly elevated. He is tolerating sotalol well. Start digoxin for better rate control. QTc interval within normal limits. Continue Xarelto for stroke prophylaxis. 3. Syncope: likely due volume depletion and RVR 4. Nontraumatic fall: due to syncope 5. NICM: Prior EF at 35-40% 03/2019. Compensated. Limited TTE noted EF at 55% 6. COPD 7. Chronic mild transaminitis: 8. HTN: controlled 9. HLP, statins on hold 10. Diarrhea: none further likely from Covid-19 11. Chronic diastolic CHF: compensated Plan Plan of Care Problems Medical Problems: (1) COVID-19 virus infection Status: Acute (2) Hypoxia Status: Acute (3) Pneumonia Status: Acute Comment Review of Relevant I have reviewed the following items rafael (where applicable) has been applied. Labs Microbiology 12/23/20 Blood Culture - Final, Complete NO GROWTH AFTER 5 DAYS Medications Current Medications Acetaminophen (Tylenol) 650 mg PRN Q6HRS PRN PO MILD PAIN / TEMP > 100.3'F Last administered on 12/29/20at 09:10; Start 12/28/20 at 16:45 Vitals/I & O Vital Sign - Last 24 Hours 12/28/20 12/28/20 12/28/20 12/28/20 11:15 12:03 14:33 19:30 Temp 98.3 97.6 97.7 98.3 97.6 97.7 Pulse 122 122 119 117 Resp 22 22 18 B/P (MAP) 122/64 (83) 122/64 110/71 (84) 113/78 (90) Pulse Ox 95 95 96 O2 Delivery Nasal Cannula Nasal Cannula Nasal Cannula O2 Flow Rate 4.0 4.0 4.0 12/28/20 12/28/20 12/28/20 12/29/20 19:30 19:59 22:35 00:12 Temp 97.9 97.9 Pulse 117 104 130 Resp 18 B/P (MAP) 113/78 118/72 (87) Pulse Ox 95 O2 Delivery Nasal Cannula Nasal Cannula O2 Flow Rate 4.0 4.0 12/29/20 12/29/20 12/29/20 12/29/20 02:47 07:30 07:55 09:00 Temp 97.9 98.2 97.9 98.2 Pulse 108 95 95 Resp 18 18 B/P (MAP) 140/81 (100) 110/75 (87) 110/75 Pulse Ox 95 96 O2 Delivery Nasal Cannula Nasal Cannula Nasal Cannula O2 Flow Rate 4.0 4.0 4.0 Intake and Output 12/28/20 12/28/20 12/29/20 15:00 23:00 07:00 Intake Total 700 ml 180 ml 0 ml Output Total 300 ml 600 ml 300 ml Balance 400 ml -420 ml -300 ml TRACEE MORIN MD Dec 29, 2020 10:42
[2020-12-29 10:50] VITALS: BP 124/84
[2020-12-29 11:54] LABS: CREATININE 1.1 mg/dL (0.7-1.3); GFR 68.1; POTASSIUM 3.9 mmol/L (3.5-5.1)
[2020-12-29] MEDS ORDERED: DIGOXIN IV 500 MCG/2 ML AMPUL. IV ONE (13:45)
[2020-12-29 14:13] VITALS: BP 96/68
[2020-12-29 19:45] VITALS: BP 102/74
[2020-12-29 22:51] VITALS: BP 114/60
[2020-12-30 03:01] VITALS: BP 115/61
[2020-12-30 07:00] VITALS: BP 131/73
--- NOTE | 2020-12-30 07:46 | PDOC ---
SUBJECTIVE Subjective No new concerns apart from dc plan. OBJECTIVE Objective Reviewed. Vital Signs Vital Signs Date Time Temp Pulse Resp B/P (MAP) Pulse Ox O2 Delivery O2 Flow Rate FiO2 12/30/20 03:01 97.5 92 20 115/61 (79) 96 Nasal Cannula 4.0 97.5 12/29/20 22:51 97.2 94 16 114/60 (78) 98 Nasal Cannula 4.0 97.2 12/29/20 21:04 110 102/74 12/29/20 20:00 Nasal Cannula 4.0 12/29/20 19:45 96.5 110 20 102/74 (83) 97 Nasal Cannula 4.0 96.5 12/29/20 14:21 110 96/68 12/29/20 14:13 98.0 110 18 96/68 (77) 97 Nasal Cannula 4.0 98.0 12/29/20 10:50 97.6 118 18 124/84 (97) 97 Nasal Cannula 4.0 97.6 12/29/20 09:00 95 110/75 12/29/20 07:55 98.2 95 18 110/75 (87) 96 Nasal Cannula 4.0 98.2 I & O Intake and Output 12/30/20 07:00 Intake Total 600 ml Output Total 450 ml Balance 150 ml Intake Oral 600 ml Output Urine Total 450 ml PHYSICAL EXAM Physical Exam Alert, oriented Irregularly irregular rhythm, tachycardic Clear to auscultation bilaterally No edema in b/l LEs Calm, cooperative ASSESSMENT/PLAN Assessment/Plan Acute hypoxic respiratory failure 2/2 COVID pneumonia Afib w/ RVR, rate improving slowly Nonischemic Cardiomyopathy, not in acute exacerbation, will need outpt repeat Echo COPD Transaminitis, uncertain etiology, may be covid vs statin vs fatty liver related. HTN HLD, LDL 24, holding statin Cards following, on Dig and sotalol Awaiting rate control Repeat LFTs today, may need liver US as outpt pending improvement Will need walking O2 prior to dc when ready COMMENT Lab Laboratory Tests Test 12/29/20 11:33 Sodium Level 133 mmol/L (136-145) Potassium Level 3.9 mmol/L (3.5-5.1) Chloride Level 98 mmol/L (98-107) Carbon Dioxide Level 25 mmol/L (21-32) Anion Gap 10 (6-14) Blood Urea Nitrogen 18 mg/dL (8-26) Creatinine 1.1 mg/dL (0.7-1.3) Estimated GFR (Cockcroft-Gault) 68.1 Glucose Level 117 mg/dL (70-99) Calcium Level 9.0 mg/dL (8.5-10.1) Justifications for Admission Other Justification PIPPA DREW MD Dec 30, 2020 07:46
--- NOTE | 2020-12-30 08:16 | EKG ---
[facility] [address] [place] [address] Test Date: 2020-12-30 Test Time: 08:10:23 Pat Name: DANIEL CROSS Department: Room: 248 1 Gender: M Dot Compliance Manager: : 1960 Requested By: JIGAR DOSS Order Number: [id number] Reading MD: Wei Nava MD Measurements Intervals [place] Rate: 111 P: CA: QRS: 90 QRSD: 90 T: 32 QT: 332 QTc: 455 Interpretive Statements ATRIAL FIBRILLATION WITH RVR PVC Electronically Signed On 12-30-2020 14:36:09 CASTING MACHINE SET UP OPERATOR by Wei Nava MD
[2020-12-30] MEDS: POTASSIUM CHLORIDE 10 MEQ TABLET.ER. PO SCH ×3 (08:57→20:50)
[2020-12-30] MEDS: ALPRAZolam 0.25 MG TABLET PO SCH ×2 (08:57→20:50)
[2020-12-30] MEDS: buPROPion SR 150 MG TABLET.SA PO SCH ×2 (08:57→20:50)
[2020-12-30] MEDS: RIVAROXABAN 10 MG TABLET. PO SCH (08:58)
[2020-12-30] MEDS: FUROSEMIDE 20 MG TABLET PO SCH (08:58)
[2020-12-30] MEDS: PANTOPRAZOLE 40 MG TABLET.DR. PO SCH (08:58)
[2020-12-30] MEDS: SOTALOL 80 MG TABLET. PO SCH ×2 (08:58→20:49)
[2020-12-30] MEDS: DIGOXIN 125 MCG TABLET. PO SCH (08:58)
[2020-12-30 09:56] LABS: ALBUMIN 2.7 g/dL (3.4-5.0); DIRECT BILIRUBIN 0.2 mg/dL (0.0-0.2); TOTAL BILIRUBIN 0.6 mg/dL (0.2-1.0); TOTAL PROTEIN 7.1 g/dL (6.4-8.2)
[2020-12-30 11:02] VITALS: BP 110/63
--- NOTE | 2020-12-30 14:31 | PDOC ---
PROGRESS NOTES Date of Service: DATE: 12/30/20 TIME: 14:29 Subjective Subjective Comfortable, no new complaints Objective Objective Vital Signs Date Time Temp Pulse Resp B/P (MAP) Pulse Ox O2 Delivery O2 Flow Rate FiO2 12/30/20 11:02 98.0 96 20 110/63 (79) 96 Nasal Cannula 2.0 98.0 Intake and Output 12/30/20 07:00 Intake Total 600 ml Output Total 450 ml Balance 150 ml Intake Oral 600 ml Output Urine Total 450 ml Physical Exam Abdomen: Soft, No tenderness Heart: Other (AFIB) Extremities: No cyanosis, No edema General: Alert, No acute distress HEENT: Atraumatic Lungs: Other (diminished) Neuro: Normal speech Psych/Mental Status: Mood NL Assessment Assessment 1. Covid-19 pneumonia: Treat per primary team 2. AFIB RVR: s/p ablation in the past with recurrence. Heart rate better controlled after adding digoxin yesterday. He is tolerating sotalol well. Continue Xarelto for stroke prophylaxis. 3. Syncope: likely due volume depletion and RVR 4. Nontraumatic fall: due to syncope 5. NICM: Prior EF at 35-40% 03/2019. Compensated. Limited TTE noted EF at 55% 6. COPD 7. Chronic mild transaminitis: 8. HTN: controlled 9. HLP, statins on hold 10. Diarrhea: none further likely from Covid-19 11. Chronic diastolic CHF: compensated Plan Plan of Care Problems Medical Problems: (1) COVID-19 virus infection Status: Acute (2) Hypoxia Status: Acute (3) Pneumonia Status: Acute Comment Review of Relevant I have reviewed the following items rafael (where applicable) has been applied. Labs Laboratory Tests Test 12/30/20 09:07 Total Bilirubin 0.6 mg/dL (0.2-1.0) Direct Bilirubin 0.2 mg/dL (0.0-0.2) Aspartate Amino Transf (AST/SGOT) 88 U/L (15-37) Alanine Aminotransferase (ALT/SGPT) 134 U/L (16-63) Alkaline Phosphatase 96 U/L (46-116) Total Protein 7.1 g/dL (6.4-8.2) Albumin 2.7 g/dL (3.4-5.0) Microbiology 12/23/20 Blood Culture - Final, Complete NO GROWTH AFTER 5 DAYS Medications Current Medications Digoxin (Lanoxin) 125 mcg DAILY PO Last administered on 12/30/20at 08:58; Start 12/30/20 at 09:00 Vitals/I & O Vital Sign - Last 24 Hours 12/29/20 12/29/20 12/29/20 12/29/20 19:45 20:00 21:04 22:51 Temp 96.5 97.2 96.5 97.2 Pulse 110 110 94 Resp 20 16 B/P (MAP) 102/74 (83) 102/74 114/60 (78) Pulse Ox 97 98 O2 Delivery Nasal Cannula Nasal Cannula Nasal Cannula O2 Flow Rate 4.0 4.0 4.0 12/30/20 12/30/20 12/30/20 12/30/20 03:01 07:00 07:30 08:58 Temp 97.5 97.6 97.5 97.6 Pulse 92 98 98 Resp 20 22 B/P (MAP) 115/61 (79) 131/73 (92) 131/73 Pulse Ox 96 98 O2 Delivery Nasal Cannula Nasal Cannula Nasal Cannula O2 Flow Rate 4.0 4.0 4.0 12/30/20 12/30/20 08:58 11:02 Temp 98.0 98.0 Pulse 98 96 Resp 20 B/P (MAP) 131/73 110/63 (79) Pulse Ox 96 O2 Delivery Nasal Cannula O2 Flow Rate 2.0 Intake and Output 12/29/20 12/29/20 12/30/20 15:00 23:00 07:00 Intake Total 300 ml 300 ml 0 ml Output Total 250 ml 200 ml Balance 300 ml 50 ml -200 ml TRACEE MORIN MD Dec 30, 2020 14:30
[2020-12-30 14:32] VITALS: BP 105/78
--- NOTE | 2020-12-30 14:40 | NUR ---
SS following up with discharge planning. SS reviewed pt chart and discussed with pt RN. Pt is currently requiring oxygen at four liters nasal canula. COVID19 positive. Per RN, AFIB not controlled. Cardiology following. Discharge plan is to home when medically stable. Pt needing six minute walk prior to discharge. SS will continue to follow for discharge planning.
[2020-12-30 19:43] VITALS: BP 117/77
[2020-12-30 22:47] VITALS: BP 106/56
[2020-12-31 02:58] VITALS: BP 117/56
[2020-12-31 07:00] VITALS: BP 141/76
--- NOTE | 2020-12-31 07:37 | PDOC ---
SUBJECTIVE Subjective Antsy to leave. OBJECTIVE Objective Reviewed. Vital Signs Vital Signs Date Time Temp Pulse Resp B/P (MAP) Pulse Ox O2 Delivery O2 Flow Rate FiO2 12/31/20 02:58 98.2 106 18 117/56 (76) 93 Room Air 98.2 12/30/20 22:47 97.8 110 20 106/56 (73) 98 Room Air 97.8 12/30/20 20:49 156 117/77 12/30/20 20:00 Nasal Cannula 2.0 12/30/20 19:43 97.1 156 20 117/77 (90) 95 Room Air 97.1 12/30/20 14:32 98.4 119 22 105/78 (87) 97 Room Air 98.4 12/30/20 11:02 98.0 96 20 110/63 (79) 96 Nasal Cannula 2.0 98.0 12/30/20 08:58 98 131/73 12/30/20 08:58 98 131/73 I & O Intake and Output 12/31/20 07:00 Intake Total 1820 ml Output Total 1700 ml Balance 120 ml Intake Oral 1820 ml Output Urine Total 1700 ml # Voids 1 PHYSICAL EXAM Physical Exam Alert, oriented Irregularly irregular rhythm, intermittently mildly tachycardic Clear to auscultation bilaterally No edema in b/l LEs Calm, cooperative ASSESSMENT/PLAN Assessment/Plan Acute hypoxic respiratory failure 12/31 COVID pneumonia Afib w/ RVR, rate improving slowly Nonischemic Cardiomyopathy, not in acute exacerbation, will need outpt repeat Echo COPD Transaminitis, uncertain etiology, may be covid vs statin vs fatty liver related. HTN HLD, LDL 24, holding statin Cards following, on Dig and sotalol LFTs remain elevated, will likely get liver US as outpt pending improvement Get 6 min walk today Possible dc today pending Cards input COMMENT Lab Laboratory Tests Test 12/30/20 09:07 Total Bilirubin 0.6 mg/dL (0.2-1.0) Direct Bilirubin 0.2 mg/dL (0.0-0.2) Aspartate Amino Transf (AST/SGOT) 88 U/L (15-37) Alanine Aminotransferase (ALT/SGPT) 134 U/L (16-63) Alkaline Phosphatase 96 U/L (46-116) Total Protein 7.1 g/dL (6.4-8.2) Albumin 2.7 g/dL (3.4-5.0) Justifications for Admission Other Justification PIPPA DREW MD Dec 31, 2020 07:37
[2020-12-31] MEDS: RIVAROXABAN 10 MG TABLET. PO SCH (08:19)
[2020-12-31] MEDS: ALPRAZolam 0.25 MG TABLET PO SCH (08:20)
[2020-12-31] MEDS: FUROSEMIDE 20 MG TABLET PO SCH (08:20)
[2020-12-31] MEDS: PANTOPRAZOLE 40 MG TABLET.DR. PO SCH (08:20)
[2020-12-31] MEDS: buPROPion SR 150 MG TABLET.SA PO SCH (08:20)
[2020-12-31] MEDS: POTASSIUM CHLORIDE 10 MEQ TABLET.ER. PO SCH ×2 (08:20→14:26)
[2020-12-31] MEDS: DIGOXIN 125 MCG TABLET. PO SCH (08:20)
[2020-12-31] MEDS: SOTALOL 80 MG TABLET. PO SCH (08:21)
[2020-12-31] MEDS: ANTI-COAG MONITOR BY PHARMACY. MC PRN (09:10)
[2020-12-31 10:56] VITALS: BP 113/76
--- NOTE | 2020-12-31 13:36 | PDOC ---
JIGAR DOSS SALT CUTTER 12/31/20 1336: CARDIO Progress Notes Date and Time Date of Service 12/31/2020 Time of Evaluation 1200 Subjective Subjective: No Chest Pain, No shortness of breath, No Palpitations, Other (wants to go home) Vitals Vitals Vital Signs Date Time Temp Pulse Resp B/P (MAP) Pulse Ox O2 Delivery O2 Flow Rate FiO2 12/31/20 10:56 98.1 100 18 113/76 (88) 95 Room Air 98.1 12/31/20 08:28 Weight Weight [ ] Input and Output Intake and Output Intake and Output 12/31/20 07:00 Intake Total 1820 ml Output Total 1700 ml Balance 120 ml Intake Oral 1820 ml Output Urine Total 1700 ml # Voids 1 Microbiology Micro Microbiology 12/23/20 Blood Culture - Final, Complete NO GROWTH AFTER 5 DAYS Physical Exam HEENT: Neck Supple W Full Motion Chest: Symmetric LUNGS: Other (diminished) Heart: irregularly irregular (AFIB) Abdomen: Soft N/T Extremities: No Edema Neurology: alert, oriented, follow commands Assessment Assessment 1. id- pneumonia: +Wednesday 2 wks ago Spouse has it too. Per PCP 2. AFIB RVR: Paroxysmal by hx. past ablation. Rate remains 90-120s at rest, -809k during activity 3. Syncope: likely due volume depletion and RVR 4. Nontraumatic fall: due to syncope 5. NICM: Prior EF at 35-40% 03/2019. Compensated. Limited TTE noted EF at 55% 6. COPD 7. Chronic mild transaminitis: no known hx of hep C, he does take high dose statin 8. HTN: controlled 9. HLP 10. Diarrhea: none further likely from Covid-19 11. Chronic diastolic CHF: compensated Recommendations 1. Pt wanting to go home no symptoms in regards to AFIB. Anticipate DC this afternoon as darshan as HR remains <120 at rest. Continue digoxin and sotalol. Instructed pt to utilize his pulse oximeter at home if any events of symptoms and notify his EP upon DC as he will likely need repeat ablation 2. At this time would not be able to titrate up his sotalol nor add any AV lyudmila blocking agents due to marginal BP. Could increase digoxin as warranted. Continue xarelto for stroke prevention. 3. Unable to utilize amiodarone due to unclear details of his transaminitis 4. Continue to hold statin for now due to transaminitis given that HLP is well controlled and reeval FLP as an outpt and pending levels could resume at much lower dose. Justicifation of Admission Dx: Justifications for Admission: Justification of Admission Dx: Yes TRACEE MORIN MD 12/31/20 1422: CARDIO Progress Notes Assessment Assessment Patient seen and examined. Agree with CHAIN MAKER's assessment and plan. Atrial fibrillation rate relatively well controlled with intermittent spikes in heart rate with exertion Blood pressure marginal and hence cannot increase sotalol dose Continue digoxin. Continue Xarelto for stroke prophylaxis. Plan outpatient referral to EP service for possible repeat ablation therapy. JIGAR DOSS APRN Dec 31, 2020 13:36 TRACEE MORIN MD Dec 31, 2020 14:22
--- NOTE | 2020-12-31 13:39 | EKG ---
[facility] [address] [place] [address] Test Date: 2020-12-31 Test Time: 13:33:20 Pat Name: DANIEL CROSS Department: Room: 248 1 Gender: M De Icer: : 1960 Requested By: JIGAR DOSS Order Number: [id number] Reading MD: Measurements Intervals [place] Rate: 106 P: RI: QRS: 94 QRSD: 94 T: 22 QT: 342 QTc: 456 Interpretive Statements IRREGULAR RHYTHM, NO P-WAVE FOUND RIGHTWARD AXIS ST & T ABNORMALITY, CONSIDER ANTERIOR ISCHEMIA OR LEFT VENTRICULAR STRAIN ABNORMAL ECG RI6.01 Compared to ECG 12/30/2020 08:10:23 Right-axis deviation now present T-wave abnormality now present Possible ischemia now present Atrial fibrillation no longer present Ventricular premature complex(es) no longer present
--- NOTE | 2020-12-31 14:06 | NUR ---
SS following up with discharge planning. SS reviewed pt chart and discussed with pt RN. Pt is currently on room air. Six minute walk completed and pt needing three liters with exertion. Cardiology signed off. Dr. Zhou notified of need for oxygen script and reported that she would fax script to nurses station. Dr. Zhou notified that Cardiology signed off for discharge today. Pt to discharge to home with self care. SS currently awaiting oxygen script and will continue to follow for discharge planning.
--- NOTE | 2020-12-31 14:39 | NUR ---
SS following up with discharge planning. Script for oxygen received. SS phoned and faxed script and clinical to [facility], ; fax [phone]. Pt's RN notified.
[2020-12-31 15:03] VITALS: BP 137/68
[2020-12-31] MEDS ORDERED: DIGO125T3 PO (16:33)
[2020-12-31] MEDS ORDERED: SOTA80TA20 PO (16:33)
--- NOTE | 2020-12-31 17:10 | PDOC3 ---
Discharge Summary Date of Admission: Dec 24, 2020 Date of Discharge: Dec 31, 2020 Follow-Up: 3-5 days Admitting Diagnosis comment: COVID-19 Acute hypoxic respiratory failure 2/2 COVID pneumonia Afib w/ RVR Transaminitis FINAL DIAGNOSIS same Brief Hospital Course Mr. Leon is a 60 yo male with PMH of CHF, Afib, HLD, HTN, COPD who presented to the ED on day of admission with SOB, Afib w/ RVR and hypotension. He was known COVID positive at time of admission. He was noted to have resistant Afib w/ RVR that required multiple medication changes to stabilize. He has previously had an ablation for Afib about 3 yrs ago and did well with that at the time until recently. He was found to have hypoxic respiratory failure d/t COVID pneumonia. He needed only low amounts of oxygen and his symptoms of COVID improved quickly. Cardiology ultimately chose sotalol and digoxin for rate contr ol with ultimate plan for pt to see EP for possible repeat ablation in the future. His LFTs were noted to be elevated at admission and they remained steadily ~2x normal. Notably, his LFTs were normal on routine labs 07/18. This may be due to COVID vs statin vs fatty liver. His statin will be held for the time being. We will follow this as an outpatient and consider an ultrasound of liver for further eval if needed. He will require 3L O2 with exertion at home for now. We will follow up with him in 5-7 days to check on his status. CONDITION AT DISCHARGE: Improved, Stable Discharge Medications Betapace (Sotalol Hcl) 80 Mg Tablet 80 Mg PO BID 30 Days Digoxin 125 Mcg Tablet 125 Mcg PO DAILY 30 Days Reported Proair Hfa (Albuterol Sulfate) 8.5 Gm Hfa.aer.ad 2 Puff IN PRN Q4HRS PRN Furosemide 20 Mg Tablet 1 Tab PO DAILY Klor-Con 10 (Potassium Chloride) 10 Meq Tablet.er 1 Tab PO DAILY Xarelto (Rivaroxaban) 20 Mg Tablet 20 Mg PO DAILY Xanax (Alprazolam) 0.25 Mg Tablet 0.25 Mg PO BID Crestor (Rosuvastatin Calcium) 40 Mg Tablet 40 Mg PO QHS - Held at this time Nexium Capsule (Esomeprazole Magnesium) 40 Mg Capsule.dr 40 Mg PO Wellbutrin Sr (Bupropion Hcl) 150 Mg Tablet.er 150 Mg PO BID Vital Signs Vital Signs Date Time Temp Pulse Resp B/P (MAP) Pulse Ox O2 Delivery O2 Flow Rate FiO2 12/31/20 15:03 98.1 84 20 137/68 (91) 94 Room Air 98.1 12/31/20 08:28 Labs Laboratory Tests Test 12/30/20 09:07 Total Bilirubin 0.6 mg/dL (0.2-1.0) Direct Bilirubin 0.2 mg/dL (0.0-0.2) Aspartate Amino Transf (AST/SGOT) 88 U/L (15-37) Alanine Aminotransferase (ALT/SGPT) 134 U/L (16-63) Alkaline Phosphatase 96 U/L (46-116) Total Protein 7.1 g/dL (6.4-8.2) Albumin 2.7 g/dL (3.4-5.0) Allergies Allergies Coded Allergies Type Severity Reaction Last Updated Verified No Known Drug Allergies 11/15/20 No Disposition/Orders: D/C to Home Justicifation of Admission Dx: Justifications for Admission: Justification of Admission Dx: Yes PIPPA DREW MD Dec 31, 2020 17:10
--- NOTE | 2020-12-31 17:15 | NUR ---
Discharge Note: DANIEL CROSS Discharge instructions and discharge home medications reviewed with Patient and a copy given. All questions have been answered and understanding verbalized. The following instructions and handouts were given: medication list, follow up, and discharge instructions. Discontinued lines and drains: peripheral IV discontinued. Patient discharged to home via wheelchair accompanied by family.
== END 2020-12-31 17:15 | disposition home or self-care (01) | DRG 177 ==
LOC: ER 14:37 → 2 SOUTH 16:50
PROVIDERS: ADMIT Family Medicine; ATTEND Family Medicine
DX: U07.1 COVID-19 (principal); J96.01 Acute respiratory failure with hypoxia; J12.82 Pneumonia due to coronavirus disease 2019; I42.8 Other cardiomyopathies; J44.0 Chronic obstructive pulmonary disease with (acute) lower respiratory infection; I50.42 Chronic combined systolic (congestive) and diastolic (congestive) heart failure; R74.01 Elevation of levels of liver transaminase levels; E78.5 Hyperlipidemia, unspecified; I11.0 Hypertensive heart disease with heart failure; Z87.891 Personal history of nicotine dependence; N40.0 Benign prostatic hyperplasia without lower urinary tract symptoms; Z90.49 Acquired absence of other specified parts of digestive tract; I48.0 Paroxysmal atrial fibrillation; F32.9 Major depressive disorder, single episode, unspecified; F41.9 Anxiety disorder, unspecified; K21.9 Gastro-esophageal reflux disease without esophagitis
CPT/HCPCS: 36415; 71045; 80048; 80053; 80061; 80076; 83605; 83735; 84443; 84484; 85025; 85379; 85610; 87040; 93005; 93308; 94618; 94760; 96361; 96374; 96375; 99285; J0696; J1100; J1160; J3490; J7030; G0378

== ENCOUNTER → 2021-02-13 | Outpatient (CLI) | payer BC ==
[~2021-02-13] MED LIST changes: +DIGO125T3 PO; +SOTA80TA20 PO
--- NOTE | 2021-02-13 10:10 | KCIC ---
Limited abdominal ultrasound INDICATION: Transaminitis. Focus liver. COMPARISON: Abdomen pelvis CT with IV contrast 12/10/2017 TECHNIQUE: Grayscale and color Doppler imaging of the right upper quadrant abdomen focused on the surinder er was performed transabdominally. FINDINGS: The liver is enlarged measuring 20.1 cm in length and shows diffuse increased echogenicity consistent with fatty infiltration. In the left hepatic lobe is an oval 1.9 cm hypoechoic mass with ill-defined margins that shows posterior acoustic enhancement. There is no CT correlate on the comparison examin ation. The gallbladder is absent, consistent with previous cholecystectomy. The common bile duct is normal i n caliber at 4.4 mm. The pancreas is poorly visualized. The right kidney measures 12.6 x 4.6 x 5.0 cm and shows no hydrone phrosis, shadowing stones or perirenal fluid. Visualized IVC is unremarkable. IMPRESSION: 1. Diffuse hepatic steatosis and hepatomegaly with a 1.9 cm hypoechoic mass that could represent foca l fatty sparing but has ill-defined margins. Liver mass protocol abdominal MRI or CT could be pursued in further evaluation if clinically warranted. 2. There is no evidence of biliary obstruction post cholecystectomy. Electronically signed by: Allie Alexandre MD (02/13/2021 10:08 AM) [id number]
== END ==
LOC: KCIC US 07:54
PROVIDERS: ATTEND Family Medicine
DX: K76.0 Fatty (change of) liver, not elsewhere classified (principal); Z90.49 Acquired absence of other specified parts of digestive tract
CPT/HCPCS: 76705

== ENCOUNTER → 2021-03-10 | Outpatient (CLI) | payer BC ==
[~2021-03-10] MED LIST changes: +GADOTERATE 7.5 MMOL/15ML VIAL. IVP ONE
--- NOTE | 2021-03-11 11:47 | KCIC ---
MRI ABDOMEN WITH AND WITHOUT CONTRAST-: 03/10/2021 8:15 AM INDICATION: 61 years old Male. Reason: Liver mass COMPARISON: Ultrasound abdomen 02/13/2021. TECHNIQUE: Multiplanar multisequence MR imaging of the abdomen was performed both before and after th e intravenous administration of gadolinium. 26 cc gadolinium based contrast was administered. FINDINGS: LUNG BASES: Unremarkable. ABDOMEN: LIVER: Normal morphology. There is moderate diffuse hepatic steatosis present. There is no focal hepa tic parenchymal abnormality. Focal fatty sparing is identified along the gallbladder fossa which coul d mimic a hepatic mass on ultrasound. No suspicious hepatic mass is identified within the hepatic par enchyma. BILE DUCTS: There is no intra or extrahepatic biliary ductal dilatation. GALLBLADDER: Surgically absent. PANCREAS: Unremarkable. Normal caliber pancreatic duct. SPLEEN: Within normal limits. ADRENAL GLANDS: There is a left adrenal nodule measuring 1.6 x 1.2 cm with minimal dropout of signal on out of phase images suggestive of intracellular lipid as may be seen with an adenoma. KIDNEYS: Within normal limits. No hydronephrosis. BOWEL: Normal caliber. PERITONEUM: No ascites or free air. No fluid collection. VASCULATURE: No abdominal aortic aneurysm. Major abdominal veins are patent. RETROPERITONEUM: Within normal limits. LYMPH NODES: There is a portacaval lymph node measuring 8.5 mm in short axis (series 15, image 31). ABDOMINAL WALL: Unremarkable. BONES: No suspicious osseous abnormality. IMPRESSION: 1. No suspicious hepatic mass is identified. Moderate hepatic steatosis with areas of focal fatty spa ring along the gallbladder fossa which could mimic a hepatic lesion ultrasound. 2. Left adrenal nodule measures 1.6 x 1.2 cm suggestive of an adrenal adenoma. Electronically signed by: Fatoumata Al MD (03/11/2021 11:45 AM) [id number]
== END ==
LOC: KCIC MRI 07:54
PROVIDERS: ATTEND Family Medicine
DX: K76.0 Fatty (change of) liver, not elsewhere classified (principal); E27.8 Other specified disorders of adrenal gland; Z90.49 Acquired absence of other specified parts of digestive tract
CPT/HCPCS: 74183; A9575